=== PATIENT | female | born 1955 | race Caucasian/White ===

== ENCOUNTER 2023-04-07 09:45 | Outpatient (AMB) | payer MEDICARE, MEDICAID, SELFPAY ==
--- NOTE | 2023-04-07 09:45 | MHC.OFFVIS ---
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 Peters with complaints of right knee pain. Hx of right knee on 09/20/2014. Patient reports pain at the medial aspect of knee. Found relief with cortisone injection that was done about a year ago. Denies any recent injury. She has taken Tylenol and medicines which gave her minimal relief. Allergies penicillin V Allergy (Unknown, Verified 04/07/23 09:59) unknown acetaminophen [From Percocet] Allergy (Verified 04/07/23 09:59) itchy oxycodone [From Percocet] Allergy (Verified 04/07/23 09:59) itchy Aspirin Allergy (Unknown, Uncoded 10/01/17 00:00) burning sensation in stomach Latex Gloves Allergy (Unknown, Uncoded 04/07/23 09:59) Unknown Pollen Allergy (Unknown, Uncoded 04/07/23 09:59) unknown Medication List - Last Reconciled 04/07/23 by Silver Peters MD atorvastatin 10 mg PO DAILY celecoxib (Celebrex) 200 mg PO DAILY fluoxetine 20 mg PO DAILY insulin lispro (Admelog SoloStar U-100 Insulin lispro) 1 sliding scale dose subcut USEASDIRECTD lisinopril 2.5 mg PO DAILY loratadine (Allergy Relief (loratadine)) 10 mg PO DAILY naproxen sodium (Aleve) 440 mg PO DAILY omeprazole 40 mg PO DAILY pregabalin (Lyrica) 25 mg PO DAILY semaglutide (Ozempic) 0.25 mg subcut QWEEK topiramate 25 mg PO DAILY PFSH Surgical History (Updated 04/07/23 @ 10:05 by RAYMUNDO Bonilla) Hx of arthroscopy of right knee Social History (Updated 04/07/23 @ 10:04 by RAYMUNDO Bonilla) Patient Tobacco Use Status: Never used Tobacco Current occupational status: unemployed Physical Exam Vital Signs: BMI result Body Mass Index 31.9 Const Other: Well-nourished well-developed very friendly female awake alert and oriented x3 in no acute distress Extrem Other: Bilateral lower extremity examination shows good capillary refill, no skin lesions noted, normal sensation light touch Right knee examination shows a minimal effusion, palpable crepitus with range of motion, pain with range of motion, range of motion from -3 degrees to 115 degrees, no instability Office Procedures Joint Injection/Drain Joint Injection/Drain Primary Site: right knee Prep: site was prepped using aseptic technique Injected: 40 mg of, Kenalog and 1% plain lidocaine Procedure: The patient tolerated the procedure well Coding - Large joint Procedure code (CPT) selection complete Results Reviewed Results Reviewed: 04/07/23 10:12 Lidocaine HCl 2 % MPF [Xylocaine 2 % MPF] 5 ml .ROUTE .STK-MED ONE Triamcinolone Acetonide [Kenalog-40] 40 mg .ROUTE .STK-MED ONE X-rays of the patient's right knee show moderate joint space narrowing, subchondral sclerosis, no acute bony abnormalities Assessment & Plan Assessment & Plan (1) Arthritis of right knee: Code(s): M17.11 - Unilateral primary osteoarthritis, right knee Plan Ms. Cintron presents with right knee pain due to degenerative joint disease. I had a lengthy discussion with the patient regarding the treatment options. She wishes to hold off on surgery for as long as possible. I agree with this plan. The risks and benefits of a cortisone injection were discussed at length with the patient. The patient wished to proceed. She tolerated the injection well. She will continue with her home exercise program. She will follow up with me on an as-needed basis should her symptoms not plateau at an unacceptable level over the next few months. Feel free to call me at any time should questions regarding her orthopedic management arise. I spent 22 minutes in reviewing the patient's records and imaging studies, seeing the patient and documenting in the medical record. Orders: Orders XR knee RT 3V Today M25.561 - Pain in right knee AMB Joint Injection/Aspiration Today M17.11 - Unilateral primary osteoarthritis, right knee Coding Level of Care Code Est Pt Level 2 (15083) Diagnoses Arthritis of right knee M17.11 CPT Codes Coding - Large joint: 65219 - Large joint ([id number])
[2023-04-07 10:05] VITALS: BMI 31.9
== END 2023-04-07 10:28 | disposition home or self-care (01) ==
PROVIDERS: PCP Internal Medicine; Visit Provider Orthopaedic Surgery
DX: M17.11 Unilateral primary osteoarthritis, right knee (principal)
CPT/HCPCS: 20610; 99203; 99213

== ENCOUNTER 2023-04-07 14:19 | Outpatient (REF) | payer MEDICARE, MEDICAID, SELFPAY ==
--- NOTE | ~2023-04-07 | XR_ITS ---
EXAMINATION: XR KNEE, RIGHT CLINICAL INFORMATION: Pain right knee COMPARISON: None available. TECHNIQUE: Four views of the right knee. FINDINGS: There is mild loss of medial and patellofemoral compartment joint space with periarticular spurring. No loose bodies. No bony erosive changes. There is mild anterior superior patellar enthesophyte. No abnormal joint effusion. XR/XR knee RT 3V IMPRESSION: Mild degenerative changes medial and patellofemoral compartment. No visible acute fracture, dislocation or subluxation seen.
== END 2023-04-07 14:20 | disposition home or self-care (01) ==
LOC: HO.HOSX 14:19
PROVIDERS: Visit Provider Orthopaedic Surgery
DX: M17.11 Unilateral primary osteoarthritis, right knee (principal)
CPT/HCPCS: 20610; 73562; J3301

== ENCOUNTER 2023-07-22 11:04 | Outpatient (AMB) | payer MEDICARE, MEDICAID, SELFPAY ==
--- NOTE | 2023-07-22 11:17 | A.OFFVIS_ITS ---
Intake Intake Visit Reasons: OV-Right Knee pain Intake Note: The patient presents with complaints of progressively worsening right knee pain. She describes her pain as sharp in nature. She has done physical therapy exercises which aggravated her pain. Her pain has gotten worse over the last few years in spite of continued non operative treatments. She did have a cortisone injection given into her right knee 3 months ago which gave her minimal relief. The patient will hold off on surgery for as long as possible. She has tried Tylenol and anti-inflammatory medicines which gave her minimal relief. Allergies penicillin V Allergy (Unknown, Verified 07/22/23 11:17) unknown acetaminophen [From Percocet] Allergy (Verified 07/22/23 11:17) itchy oxycodone [From Percocet] Allergy (Verified 07/22/23 11:17) itchy Aspirin Allergy (Unknown, Uncoded 07/22/23 11:17) burning sensation in stomach Latex Gloves Allergy (Unknown, Uncoded 07/22/23 11:17) Unknown Pollen Allergy (Unknown, Uncoded 07/22/23 11:17) unknown Medication List - Last Reconciled 07/22/23 by Silver Peters MD atorvastatin 10 mg PO DAILY fluoxetine 20 mg PO DAILY insulin lispro (Admelog SoloStar U-100 Insulin lispro) 1 sliding scale dose subcut USEASDIRECTD lisinopril 2.5 mg PO DAILY loratadine (Allergy Relief (loratadine)) 10 mg PO DAILY naproxen sodium (Aleve) 440 mg PO DAILY omeprazole 40 mg PO DAILY pregabalin (Lyrica) 25 mg PO DAILY semaglutide (Ozempic) 0.25 mg subcut QWEEK topiramate 25 mg PO DAILY PFS Surgical History Hx of arthroscopy of right knee Social History Alcohol intake: never Patient Tobacco Use Status: Never used Tobacco Current occupational status: unemployed Physical Exam Const Other: Well-nourished well-developed very friendly female awake alert and oriented x3 in no acute distress Extrem Other: Bilateral lower extremity examination shows good capillary refill, no skin l esions noted, normal sensation light touch Right knee examination shows a minimal effusion, palpable crepitus with range of motion, pain with range of motion, no instability Results Reviewed Results Reviewed: X-rays of the patient's right knee show joint space narrowing, subchondral sclerosis, no acute bony abnormalities Assessment & Plan Assessment & Plan (1) Arthritis of right knee: Code(s): M17.11 - Unilateral primary osteoarthritis, right knee Plan Ms. Cintron presents with right knee pain due to degenerative joint disease. I had a lengthy discussion with the patient regarding the treatment options. She wishes to hold off on surgery as long as possible. I agree with this plan. She has not gotten relief from cortisone injections. Thus, I will see whether not her insurance company will cover a viscosupplementation injection. I will see her back once the injection is available. Feel free to call me at any time should questions regarding her orthopedic management arise. I spent 22 minutes in reviewing the patient's records and imaging studies, seeing the patient and documenting in the medical record. Coding Level of Care Code Est Pt Level 2 (73106) Diagnoses Arthritis of right knee M17.11
== END 2023-07-22 11:36 | disposition home or self-care (01) ==
PROVIDERS: PCP Internal Medicine; Visit Provider Orthopaedic Surgery
DX: M17.11 Unilateral primary osteoarthritis, right knee (principal)
CPT/HCPCS: 99213

== ENCOUNTER → 2023-07-22 11:04 | Outpatient (BNVA) | payer MEDICARE, MEDICAID, SELFPAY | PROVIDERS: PCP Internal Medicine; Visit Provider Orthopaedic Surgery | DX: M17.11 Unilateral primary osteoarthritis, right knee (principal) | CPT/HCPCS: 99212 ==

== ENCOUNTER 2023-08-17 10:02 | Outpatient (AMB) | payer MEDICARE, MEDICAID, SELFPAY ==
--- NOTE | 2023-08-17 10:08 | A.OFFVIS_ITS ---
Intake Vital Signs 08/17/23 10:09 Height 5 ft 3 in Weight 180 lb BMI 31.9 Intake Visit Reasons: Inj.- right knee Durolane injection Intake Note: Mary is a 68 year old female who presents with complaints of progressively worsening right knee pain. She describes her pain as sharp in nature. She has had cortisone injections which gave her minimal relief. She has also had viscosupplementation injections which gave her fairly good relief. She has done physical therapy exercises which aggravated her pain. She has also tried Tylenol and anti-inflammatory medicines which gave her minimal relief. She wishes to hold off on surgery for as long as possible. Allergies penicillin V Allergy (Unknown, Verified 08/17/23 10:15) unknown acetaminophen [From Percocet] Allergy (Verified 08/17/23 10:15) itchy oxycodone [From Percocet] Allergy (Verified 08/17/23 10:15) itchy Aspirin Allergy (Unknown, Uncoded 07/22/23 11:17) burning sensation in stomach Latex Gloves Allergy (Unknown, Uncoded 07/22/23 11:17) Unknown Pollen Allergy (Unknown, Uncoded 07/22/23 11:17) unknown Medication List - Last Reconciled 08/17/23 by Silver Peters MD atorvastatin 10 mg PO DAILY fluoxetine 20 mg PO DAILY insulin lispro (Admelog SoloStar U-100 Insulin lispro) 1 sliding scale dose subcut USEASDIRECTD lisinopril 2.5 mg PO DAILY loratadine (Allergy Relief (loratadine)) 10 mg PO DAILY naproxen sodium (Aleve) 440 mg PO DAILY omeprazole 40 mg PO DAILY pregabalin (Lyrica) 25 mg PO DAILY semaglutide (Ozempic) 0.25 mg subcut QWEEK topiramate 25 mg PO DAILY [facility] Surgical History Hx of arthroscopy of right knee Social History Alcohol intake: never Patient Tobacco Use Status: Never used Tobacco Current occupational status: unemployed Physical Exam Vital Signs: BMI result Body Mass Index 31.9 Const Other: Well-nourished well-developed very friendly female awake alert and oriented x3 in no acute distress Extrem Other: Bilateral lower extremity examination shows good capillary refill, no skin lesions noted, normal sensation light touch Right knee examination shows a minimal effusion, palpable crepitus with range of motion, pain with range of motion, no instability Office Procedures Joint Injection/Drain Joint Injection/Drain Primary Site: right knee Prep: site was prepped using aseptic technique Injected: 60 mg of (Durolane) and 1% plain lidocaine Procedure: The patient tolerated the procedure well Coding - Large joint Procedure code (CPT) selection complete Results Reviewed Results Reviewed: X-rays of the patient's right knee show joint space narrowing, subchondral sclerosis, no acute bony abnormalities Assessment & Plan Assessment & Plan (1) Arthritis of right knee: Code(s): M17.11 - Unilateral primary osteoarthritis, right knee Plan Ms. Saida Pratt presents with right knee pain due to degenerative joint disease. I had a lengthy discussion with the patient regarding the treatment options. She wishes to hold off on surgery for as long as possible. I agree with this plan. The risks and benefits of a right knee Durolane viscosupplementation injection were discussed at length with the patient. The patient wished to proceed. She tolerated the injection well. She will continue with her activity modifications. She will follow up with me on an as-needed basis should her symptoms not plateau at an unacceptable level over the next few months. Feel free to call me at any time should questions regarding her orthopedic management arise. I spent 22 minutes in reviewing the patient's records and imaging studies, seeing the patient and documenting in the medical record. Orders: Orders AMB Joint Injection/Aspiration Today M17.11 - Unilateral primary osteoarthritis, right knee Coding Level of Care Code Est Pt Level 2 (20686) Diagnoses Arthritis of right knee M17.11 CPT Codes Coding - Large joint: 54186 - Large joint ([id number])
[2023-08-17 10:09] VITALS: BMI 31.9
== END 2023-08-17 10:38 | disposition home or self-care (01) ==
PROVIDERS: PCP Internal Medicine; Visit Provider Orthopaedic Surgery
DX: M17.11 Unilateral primary osteoarthritis, right knee (principal)
CPT/HCPCS: 20610; 99213

== ENCOUNTER → 2023-08-17 10:02 | Outpatient (BNVA) | payer MEDICARE, MEDICAID, SELFPAY | PROVIDERS: PCP Internal Medicine; Visit Provider Orthopaedic Surgery | DX: M17.11 Unilateral primary osteoarthritis, right knee (principal) | CPT/HCPCS: 20610; 99212; J7318 ==

== ENCOUNTER 2023-11-16 13:28 | Outpatient (AMB) | payer MEDICARE, MEDICAID, SELFPAY ==
[2023-11-16 13:29] VITALS: BMI 31.9
--- NOTE | 2023-11-16 13:29 | MHC.OFFVIS ---
Intake Vital Signs 11/16/23 13:29 Height 5 ft 3 in Weight 180 lb BMI 31.9 Intake Visit Reasons: OV- right knee Durolane injection-Follow up Intake Note: Mary is a 68 year old female who presents for a follow up after her Right knee durolane gel injection on 08/17/2023. Patient reports it has given her a little relief. The patient reports continued right knee pain. She has tried Tylenol and anti-inflammatory medicines which gave her minimal relief. Today the patient is also concerned with progressively worsening left shoulder pain and weakness. The patient states that she injured her left shoulder several years ago while lifting a heavy object. She underwent left shoulder surgery at [facility] several years ago. The patient got minimal relief from that procedure. She has done physical therapy which aggravated her symptoms. She reports weakness when lifting her left hand above shoulder height. She has had cortisone injections given into her left shoulder. Most recent injection gave her minimal relief. Allergies penicillin V Allergy (Unknown, Verified 11/16/23 13:31) unknown acetaminophen [From Percocet] Allergy (Verified 11/16/23 13:31) itchy oxycodone [From Percocet] Allergy (Verified 11/16/23 13:31) itchy Aspirin Allergy (Unknown, Uncoded 07/22/23 11:17) burning sensation in stomach Latex Gloves Allergy (Unknown, Uncoded 07/22/23 11:17) Unknown Pollen Allergy (Unknown, Uncoded 07/22/23 11:17) unknown [facility] Surgical History Hx of arthroscopy of right knee Social History Alcohol intake: never Patient Tobacco Use Status: Never used Tobacco Current occupational status: unemployed Physical Exam Vital Signs: BMI result Body Mass Index 31.9 Const Other: Well-nourished well-developed very friendly female awake alert and oriented x3 in no acute distress Extrem Other: Bilateral upper extremity examination shows good capillary refill, no skin lesions noted, normal sensation light touch Left shoulder examination shows decreased active range of motion but full passive range of motion when compared to her right shoulder, 4/5 strength with supraspinatus testing, positive impingement signs, tenderness over her acromioclavicular joint, no instability Right knee examination shows a minimal effusion, palpable crepitus with range of motion, pain with range of motion, no instability Office Procedures Joint Injection/Drain Joint Injection/Drain Primary Site: left shoulder Prep: site was prepped using aseptic technique Injected: 40 mg of, DepoMedrol and 1% plain lidocaine Procedure: The patient tolerated the procedure well Coding - Large joint Procedure code (CPT) selection complete Assessment & Plan Assessment & Plan (1) Arthritis of right knee: Code(s): M17.11 - Unilateral primary osteoarthritis, right knee (2) Left shoulder pain: Code(s): M25.512 - Pain in left shoulder Plan Ms. Saida Pratt presents with progressively worsening left shoulder pain and weakness possibly due to a full-thickness rotator cuff tear. Thus, I will send the patient for an MRI of her left shoulder for further evaluation. I will see her back once the MRI is completed to discuss the findings and treatment options. The patient also has right knee pain due to degenerative joint disease. She wishes to hold off on total knee replacement surgery for as long as possible. I agree with this plan. The risks and benefits of a right knee cortisone injection were discussed at length with the patient. The patient wished to proceed. She tolerated the injection well. She will follow up for her shoulder MRI as scheduled. Feel free to call me at any time should questions regarding her orthopedic management arise. I spent 22 minutes in reviewing the patient's records and imaging studies, seeing the patient and documenting in the medical record. Orders: Orders MR shoulder LT wo con Today M75.122 - Complete rotator cuff tear or rupture of left shoulder, not specified as traumatic AMB Joint Injection/Aspiration Today M17.11 - Unilateral primary osteoarthritis, right knee Coding Level of Care Code Est Pt Level 2 (77840) Diagnoses Arthritis of right knee M17.11 Left shoulder pain M25.512 CPT Codes Coding - Large joint: 20909 - Large joint ([id number])
== END 2023-11-16 13:58 | disposition home or self-care (01) ==
PROVIDERS: PCP Internal Medicine; Visit Provider Orthopaedic Surgery
DX: M17.11 Unilateral primary osteoarthritis, right knee (principal); M25.512 Pain in left shoulder
CPT/HCPCS: 20610; 99214

== ENCOUNTER → 2023-11-16 13:28 | Outpatient (BNVA) | payer MEDICARE, MEDICAID, SELFPAY | PROVIDERS: PCP Internal Medicine; Visit Provider Orthopaedic Surgery | DX: M25.512 Pain in left shoulder (principal); M17.11 Unilateral primary osteoarthritis, right knee | CPT/HCPCS: 20610; 99212; J1010; J1020 ==

== ENCOUNTER 2024-01-04 18:48 | Outpatient (REF) | payer MEDICARE, MEDICAID, SELFPAY ==
--- NOTE | ~2024-01-04 | MR_ITS ---
EXAMINATION: MR SHOULDER WITHOUT CONTRAST, LEFT CLINICAL INFORMATION: Complete rotator cuff tear or rupture of the left shoulder. Left shoulder pain and swelling. History of surgery. COMPARISON: Radiographs dated 05/01/2015. TECHNIQUE: MRI of the shoulder without contrast was performed on a high-field scanner. FINDINGS: ROTATOR CUFF: 3 soft tissue anchors are present at the greater tuberosity consistent with prior rotator cuff repair. The repaired tendon is attenuated with heterogeneous low signal intensity, most consistent with expected postoperative change. No discrete recurrent tears. Of note, the anterior margin of the acromion produces mild mass effect upon the supraspinatus tendon. Subscapularis and infraspinatus appear intact. No muscle atrophy or fatty infiltration. BICEPS: Biceps tendon is absent at the supraglenoid tubercle, most consistent with prior tenotomy or tenodesis. CORACOACROMIAL ARCH: The undersurface of the acromion is remodeled, consistent with prior acromioplasty. There is a residual or recurrent hooked undersurface morphology with an anterior spur that, as noted above, produces mild mass effect upon the supraspinatus. Mild acromioclavicular osteoarthritis. Trace fluid in the subacromial-subdeltoid bursa. LABRUM/CAPSULE: The labrum is blunted and largely absent superiorly, likely related to prior biceps tendon tear or tenotomy. The inferior labrum is also largely absent, likely due to chronic degeneration or tearing. Joint capsule is unremarkable. GLENOHUMERAL JOINT/MARROW: There is moderate to high-grade cartilage loss at the glenoid inferiorly with focal subchondral edema signal and cortical irregularity. More mild chondral thinning is present in the supraglenoid tubercle. Small to moderate-sized glenoid osteophytes. There is [id number] nonuniform chondral thinning at the humeral head, more pronounced superiorly. No joint effusion. MR/MR shoulder LT wo con IMPRESSION: 1. Status post rotator cuff repair with expected postoperative changes at the supraspinatus tendon. No recurrent tears. 2. Status post acromioplasty with a residual or recurrent hooked undersurface morphology and an anterior spur which produces mild mass effect upon the supraspinatus. 3. [id number] glenohumeral osteoarthritis with focal areas of moderate to high-grade cartilage loss at the inferior glenoid. 4. Mild acromioclavicular osteoarthritis.
== END 2024-01-04 18:49 | disposition home or self-care (01) ==
LOC: HO.MRI 18:48
PROVIDERS: PCP Internal Medicine; Visit Provider Orthopaedic Surgery
DX: M75.122 Complete rotator cuff tear or rupture of left shoulder, not specified as traumatic (principal)
CPT/HCPCS: 73221

== ENCOUNTER 2024-01-25 11:23 | Outpatient (AMB) | payer MEDICARE, MEDICAID, SELFPAY ==
--- NOTE | 2024-01-25 11:23 | A.OFFVIS_ITS ---
Vital Signs 01/25/24 11:29 Height 5 ft 3 in Weight 180 lb BMI 31.9 Intake Visit Reasons: OV - left shoulder MRI review Intake Note: Mary is a 68 year old female who presents with progressively worsening left shoulder pain and weakness. The patient states that she injured her left shoulder several years ago while lifting a heavy object. She underwent left shoulder surgery at [facility] several years ago. The patient got minimal relief from that procedure. She has done physical therapy which aggravated her symptoms. She reports weakness when lifting her left hand above shoulder height. She has had cortisone injections given into her left shoulder. Most recent injection gave her minimal relief. She has tried Tylenol and anti- inflammatory medicines which gave her minimal relief. . Addiction Specialist Required: Yes Addiction Specialist Language: Director Security Management Name: [id number] Allergies penicillin V Allergy (Unknown, Verified 01/25/24 11:30) unknown acetaminophen [From Percocet] Allergy (Verified 01/25/24 11:30) itchy oxycodone [From Percocet] Allergy (Verified 01/25/24 11:30) itchy Aspirin Allergy (Unknown, Uncoded 01/25/24 11:30) burning sensation in stomach Latex Gloves Allergy (Unknown, Uncoded 01/25/24 11:30) Unknown Pollen Allergy (Unknown, Uncoded 01/25/24 11:30) unknown Medication List - Last Reconciled 01/25/24 by Silver Peters MD atorvastatin 10 mg PO DAILY fluoxetine 20 mg PO DAILY insulin lispro (Admelog SoloStar U-100 Insulin lispro) 1 sliding scale dose subcut USEASDIRECTD lisinopril 2.5 mg PO DAILY loratadine (Allergy Relief (loratadine)) 10 mg PO DAILY naproxen sodium (Aleve) 440 mg PO DAILY omeprazole 40 mg PO DAILY pregabalin (Lyrica) 25 mg PO DAILY semaglutide (Ozempic) 0.25 mg subcut QWEEK topiramate XR 25 mg PO DAILY PFSH Surgical History Hx of arthroscopy of right knee Social History Alcohol intake: never Patient Tobacco Use Status: Never used Tobacco Current occupational status: unemployed Physical Exam Vital Signs: BMI result Body Mass Index 31.9 Const Other: Well-nourished well-developed very friendly female awake alert and oriented x3 in no acute distress Extrem Other: Bilateral upper extremity examination shows good capillary refill, no skin lesions noted, normal sensation light touch Left shoulder examination shows decreased active and passive range of motion when compared to her right shoulder, 4+ out of 5 strength with supraspinatus testing, positive impingement signs, tenderness over her acromioclavicular joint, no instability Results Reviewed Results Reviewed: MRI of the patient's left shoulder show severe acromioclavicular joint narrowing, a type 3 acromion, signal change within the supraspinatus tendon due to rotator cuff tendinosis versus a small rotator cuff tear Assessment & Plan Assessment & Plan (1) Impingement syndrome of left shoulder: Code(s): M75.42 - Impingement syndrome of left shoulder Category: Medical Plan Ms. Saida Pratt presents with progressively worsening left shoulder pain due to impingement syndrome, acromioclavicular joint arthritis and rotator cuff tendinosis versus a small rotator cuff tear. I had a lengthy discussion with the patient regarding treatment options. At this point she has failed continued non operative treatments. The risks and benefits of left shoulder surgery were discussed at length with the patient. The patient wishes to proceed with surgery. She will contact my office to pick a surgery date. Surgery will involve left shoulder diagnostic arthroscopy with distal clavicle excision, acromioplasty and rotator cuff repair should a full-thickness tear be found at the time of her surgery. The patient will follow-up as instructed. Feel free to call me at any time should questions regarding her orthopedic management arise. I spent 20 minutes in reviewing the patient's records and imaging studies, see ing the patient and documenting in the medical record. Coding Level of Care Code Est Pt Level 3 (72292) Diagnoses Impingement syndrome of left shoulder M75.42
[2024-01-25 11:29] VITALS: BMI 31.9
== END 2024-01-25 11:38 | disposition home or self-care (01) ==
PROVIDERS: PCP Internal Medicine; Visit Provider Orthopaedic Surgery
DX: M75.42 Impingement syndrome of left shoulder (principal)
CPT/HCPCS: 99214

== ENCOUNTER → 2024-01-25 11:23 | Outpatient (BNVA) | payer MEDICARE, MEDICAID, SELFPAY | PROVIDERS: PCP Internal Medicine; Visit Provider Orthopaedic Surgery | DX: M75.42 Impingement syndrome of left shoulder (principal) | CPT/HCPCS: 99212 ==

== ENCOUNTER 2024-03-14 12:36 | Outpatient (AMB) | payer MEDICARE, MEDICAID, SELFPAY ==
--- NOTE | 2024-03-14 12:38 | MHC.OFFVIS ---
Vital Signs 03/14/24 12:43 Height 5 ft 3 in Weight 180 lb BMI 31.9 Intake Visit Reasons: Preop LT shoulder 03/24/24 Intake Note: Mary is a 68 year old female who presents with progressively worsening left shoulder pain and weakness. The patient states that she injured her left shoulder several years ago while lifting a heavy object. She underwent left shoulder surgery at [facility] several years ago. The patient got minimal relief from that procedure. She has done physical therapy which aggravated her symptoms. She reports weakness when lifting her left hand above shoulder height. She has had cortisone injections given into her left shoulder. Most recent injection gave her minimal relief. She has tried Tylenol and anti-inflammatory medicines which gave her minimal relief. Community Health Navigator Services: Community Health Navigator Offered & Declined Accompanied by: Spouse Allergies oxycodone [From Percocet] Allergy (Intermediate, Verified 03/14/24 12:43) itchy latex Allergy (Unknown, Verified 03/14/24 12:43) Unknown penicillin V Allergy (Unknown, Verified 03/14/24 12:43) unknown pollen extracts Allergy (Unknown, Verified 03/14/24 12:43) Unknown aspirin Adverse Reaction (Intermediate, Verified 03/14/24 12:43) Gastrointestinal Upset Medication List - Last Reconciled 03/14/24 by Silver Peters MD atorvastatin 10 mg PO DAILY fluoxetine 20 mg PO DAILY hydromorphone (Dilaudid) 4 mg (2 x 2 mg) PO Q4H PRN 1 week insulin lispro (Admelog SoloStar U-100 Insulin lispro) 1 sliding scale dose subcut USEASDIRECTD lisinopril 2.5 mg PO DAILY loratadine (Allergy Relief (loratadine)) 10 mg PO DAILY naproxen sodium (Aleve) 440 mg PO DAILY omeprazole 40 mg PO DAILY pregabalin (Lyrica) 25 mg PO DAILY semaglutide (Ozempic) 0.25 mg subcut QWEEK topiramate XR 25 mg PO DAILY PFSH Medical History WILL (obstructive sleep apnea) Osteopenia Osteoarthritis Migraine Cervical spinal stenosis Anxiety and depression Diabetes GERD (gastroesophageal reflux disease) Elevated cholesterol Surgical History Hx of appendectomy Hx of hysterectomy Hx of shoulder surgery Hx of arthroscopy of right knee Social History Alcohol intake: never Patient Tobacco Use Status: Never used Tobacco Current occupational status: unemployed Physical Exam Vital Signs: BMI result Body Mass Index 31.9 Const Other: Well-nourished well-developed very friendly female awake alert and oriented x3 in no acute distress Extrem Other: Bilateral upper extremity examination shows good capillary refill, no skin lesions noted, normal sensation light touch Left shoulder examination shows decreased active and passive range of motion when compared to her right shoulder, 4+ out of 5 strength with supraspinatus testing, positive impingement signs, tenderness over her acromioclavicular joint, no instability Results Reviewed Results Reviewed: MRI of the patient's left shoulder show severe acromioclavicular joint narrowing, a type 3 acromion, signal change within the supraspinatus tendon due to rotator cuff tendinosis versus a small recurrent tear, 3 suture anchors within the proximal humerus with no signs of loosening Assessment & Plan Assessment & Plan (1) Impingement syndrome of left shoulder: Code(s): M75.42 - Impingement syndrome of left shoulder Category: Medical Plan Ms. Saida Pratt presents with recurrent left shoulder pain and weakness due to impingement syndrome, acromioclavicular joint arthritis and rotator cuff tendinosis versus possible recurrent rotator cuff tearing. I had a lengthy discussion with the patient regarding the treatment options. At this point she has failed continued non operative treatments. The risks and benefits of left shoulder surgery were discussed at length with the patient. The patient wishes to proceed with surgery. Surgery will involve left shoulder diagnostic arthroscopy with distal clavicle excision, acromioplasty and rotator cuff repair showed a full-thickness tear be found at the time of her surgery. The patient was given a prescription for Dilaudid at her preoperative appointment. She will follow-up as instructed. Feel free to call me at any time should questions regarding her orthopedic management arise. I spent 22 minutes in reviewing the patient's records and imaging studies, seeing the patient and documenting in the medical record. Medications: New hydromorphone (Dilaudid) Partial Fill upon patient request. 4 mg (2 x 2 mg) PO Q4H PRN 40 tabs 0RF pain 1 week Coding Level of Care Code Est Pt Level 3 (41622) Diagnoses Impingement syndrome of left shoulder M75.42
[2024-03-14 12:43] VITALS: BMI 31.9
== END 2024-03-14 12:55 | disposition home or self-care (01) ==
PROVIDERS: PCP Internal Medicine; Visit Provider Orthopaedic Surgery
DX: M75.42 Impingement syndrome of left shoulder (principal)
CPT/HCPCS: 99024

== ENCOUNTER → 2024-03-14 12:36 | Outpatient (BNVA) | payer MEDICARE, MEDICAID, SELFPAY | PROVIDERS: PCP Internal Medicine; Visit Provider Orthopaedic Surgery | DX: M75.42 Impingement syndrome of left shoulder (principal) | CPT/HCPCS: 99212 ==

== ENCOUNTER 2024-08-22 08:05 | Outpatient (AMB) | payer MEDICARE, MEDICAID, SELFPAY ==
[2024-08-22 08:18] VITALS: BMI 31.9
--- NOTE | 2024-08-22 08:18 | A.OFFVIS_ITS ---
Vital Signs 08/22/24 08:18 Height 5 ft 3 in Weight 180 lb BMI 31.9 Intake Visit Reasons: OV- RT knee pain Intake Note: Mary is a 69 year old female who presents with complaints of progressively worsening right knee pain. She describes her pain as sharp in nature. She did undergo right knee arthroscopic surgery approximately 10 years ago. She got temporary relief from that procedure. She has had multiple cortisone injections given into her right knee. The most recent injection gave her minimal relief. She has also done physical therapy exercises which aggravated her pain. She has had viscosupplementation injections which gave her good relief. She has failed the last 3 months of conservative treatment which has included cortisone injections, Tylenol, anti-inflammatory medicines and physical therapy exercises. At this point her right knee pain is interfering with her activities of daily living and her ability to sleep well through the night. She wishes to hold off on right total knee replacement surgery for as long as possible. Inspector [employer] Required: No Accompanied by: Spouse Allergies oxycodone [From Percocet] Allergy (Intermediate, Verified 08/22/24 08:19) itchy latex Allergy (Unknown, Verified 08/22/24 08:19) Unknown penicillin V Allergy (Unknown, Verified 08/22/24 08:19) unknown pollen extracts Allergy (Unknown, Verified 08/22/24 08:19) Unknown aspirin Adverse Reaction (Intermediate, Verified 08/22/24 08:19) Gastrointestinal Upset Medication List - Last Reconciled 08/22/24 by Silver Peters MD atorvastatin 10 mg PO DAILY dulaglutide (Trulicity) mg subcut fluoxetine 20 mg PO DAILY hydromorphone (Dilaudid) 4 mg (2 x 2 mg) PO Q4H PRN 1 week insulin lispro (Admelog SoloStar U-100 Insulin lispro) 1 sliding scale dose subcut USEASDIRECTD lisinopril 2.5 mg PO DAILY loratadine (Allergy Relief (loratadine)) 10 mg PO DAILY naproxen sodium (Aleve) 440 mg PO DAILY omeprazole 40 mg PO DAILY pregabalin (Lyrica) 25 mg PO DAILY topiramate XR 25 mg PO DAILY venlafaxine ER 75 mg PO DAILY [facility] Medical History WILL (obstructive sleep apnea) Osteopenia Osteoarthritis Migraine Cervical spinal stenosis Anxiety and depression Diabetes GERD (gastroesophageal reflux disease) Elevated cholesterol Surgical History Hx of appendectomy Hx of hysterectomy Hx of shoulder surgery Hx of arthroscopy of right knee Social History Alcohol intake: never Patient Tobacco Use Status: Never used Tobacco Current occupational status: unemployed Physical Exam Vital Signs: BMI result Body Mass Index 31.9 Const Other: Well-nourished well-developed very friendly female awake alert and oriented x3 in no acute distress Extrem Other: Bilateral lower extremity examination shows good capillary refill, no skin lesions noted, normal sensation light touch Right knee examination shows a minimal effusion, palpable crepitus with range of motion, pain with range of motion, range of motion from -3 degrees to 115 degrees, no instability Results Reviewed Results Reviewed: Standing full weight-bearing x-rays of the patient's right knee taken previously show joint space narrowing, subchondral sclerosis, no acute bony abnormalities Assessment & Plan Assessment & Plan (1) Osteoarthritis of right knee: Code(s): M17.11 - Unilateral primary osteoarthritis, right knee Category: Medical Plan Ms. Saida Pratt presents with progressively worsening right knee pain due to osteoarthritis. I had a lengthy discussion with the patient regarding the treatment options. She wishes to hold off on right total knee replacement surgery for as long as possible. I agree with this plan. She has not gotten good relief from cortisone injections in the past. She has gotten good relief from viscosupplementation injections. Thus, I will see whether or not the patient's insurance company will cover a another viscosupplementation injection, such as Durolane. I will see her back once the injection is available. Feel free to call me at any time should questions regarding her orthopedic management arise. I spent 20 minutes in reviewing the patient's records and imaging studies, seeing the patient and documenting in the medical record. Coding Level of Care Code Est Pt Level 3 (14952) Complex EM visit Add On G2211 Diagnoses Osteoarthritis of right knee M17.11
== END 2024-08-22 08:30 | disposition home or self-care (01) ==
PROVIDERS: PCP Internal Medicine; Visit Provider Orthopaedic Surgery
DX: M17.11 Unilateral primary osteoarthritis, right knee (principal)
CPT/HCPCS: 99213; G2211

== ENCOUNTER → 2024-08-22 08:05 | Outpatient (BNVA) | payer MEDICARE, MEDICAID, SELFPAY | PROVIDERS: PCP Internal Medicine; Visit Provider Orthopaedic Surgery | DX: M17.11 Unilateral primary osteoarthritis, right knee (principal) | CPT/HCPCS: 99212 ==

== ENCOUNTER → 2024-09-05 11:37 | Outpatient (BNVA) | payer MEDICARE, MEDICAID, SELFPAY | PROVIDERS: PCP Internal Medicine; Visit Provider Orthopaedic Surgery | DX: M17.11 Unilateral primary osteoarthritis, right knee (principal) | CPT/HCPCS: 20610; 99212; J2003; J7318 ==

== ENCOUNTER 2024-12-12 10:13 | Outpatient (AMB) | payer MEDICARE, MEDICAID, SELFPAY ==
[2024-12-12 10:18] VITALS: BMI 31.9
--- NOTE | 2024-12-12 10:18 | A.OFFVIS_ITS ---
Vital Signs 12/12/24 10:18 Height 5 ft 3 in Weight 180 lb BMI 31.9 Intake Visit Reasons: OV Right knee OA s/p Durolane 09/05/24 Intake Note: Mary is a 69 year old female who presents with progressively worsening left shoulder pain and weakness. The patient states that she injured her left shoulder several years ago while lifting a heavy object. She underwent left s houlder surgery at [facility] several years ago. The patient got temporary relief from that procedure. She has done physical therapy which aggravated her symptoms. She reports weakness when lifting her left hand above shoulder height. She has had cortisone injections given into her left shoulder. Most recent injection gave her minimal relief. She has tried Tylenol and anti-inflammatory medicines which gave her minimal relief. She did have left shoulder surgery scheduled but the procedure was canceled because her blood glucose level was high. The patient also has right knee pain. She has had cortisone injections in the past which gave her minimal relief. She has done physical therapy exercises which aggravated her pain. At this point her right knee pain is interfering with her activities of daily living and her ability to sleep well through the night. She has had a Durolane viscosupplementation injection which gave her fairly good relief. She wishes to hold off on right knee surgery for as long as possible. Commissioner Of Relocation Services Required: No Allergies oxycodone [From Percocet] Allergy (Intermediate, Verified 12/12/24 10:18) itchy latex Allergy (Unknown, Verified 12/12/24 10:18) Unknown penicillin V Allergy (Unknown, Verified 12/12/24 10:18) unknown pollen extracts Allergy (Unknown, Verified 12/12/24 10:18) Unknown aspirin Adverse Reaction (Intermediate, Verified 12/12/24 10:18) Gastrointestinal Upset Medication List - Last Reconciled 12/12/24 by Silver Peters MD atorvastatin 10 mg PO DAILY dulaglutide (Trulicity) mg subcut fluoxetine 20 mg PO DAILY hydromorphone (Dilaudid) 4 mg (2 x 2 mg) PO Q4H PRN 1 week insulin lispro (Admelog SoloStar U-100 Insulin lispro) 1 sliding scale dose subcut USEASDIRECTD lisinopril 2.5 mg PO DAILY loratadine (Allergy Relief (loratadine)) 10 mg PO DAILY naproxen sodium (Aleve) 440 mg PO DAILY omeprazole 40 mg PO DAILY pregabalin (Lyrica) 25 mg PO DAILY topiramate XR 25 mg PO DAILY venlafaxine ER 75 mg PO DAILY PFSH Medical History WILL (obstructive sleep apnea) Osteopenia Osteoarthritis Migraine Cervical spinal stenosis Anxiety and depression Diabetes GERD (gastroesophageal reflux disease) Elevated cholesterol Surgical History Hx of appendectomy Hx of hysterectomy Hx of shoulder surgery Hx of arthroscopy of right knee Social History Alcohol intake: never Patient Tobacco Use Status: Never used Tobacco Current occupational status: unemployed Physical Exam Vital Signs: BMI result Body Mass Index 31.9 Const Other: Well-nourished well-developed very friendly female awake alert and oriented x3 in no acute distress Extrem Other: Left shoulder examination shows decreased range of motion when compared to her right shoulder, 4+ out of 5 strength with supraspinatus testing, positive impingement signs, tenderness over her acromioclavicular joint, no instability Right knee examination shows a minimal effusion, palpable crepitus with range of motion, pain with range of motion, no instability Results Reviewed Results Reviewed: X-rays of the patient's right knee taken previously show joint space narrowing, subchondral sclerosis, no acute bony abnormalities MRI of the patient's left shoulder shows severe acromioclavicular joint narrowing, a type 2 acromion, 3 suture anchors within the proximal humerus with no signs of loosening, signal change within the supraspinatus tendon due to rotator cuff tendinosis versus a small recurrent tear Assessment & Plan Assessment & Plan (1) Osteoarthritis of right knee: Code(s): M17.11 - Unilateral primary osteoarthritis, right knee Category: Medical (2) Impingement syndrome of left shoulder: Code(s): M75.42 - Impingement syndrome of left shoulder Category: Medical Plan Ms. Saida Pratt presents with right knee pain due to osteoarthritis. The patient has not gotten good relief from cortisone injections in the past. Thus, I will see whether or not the patient's insurance company will cover a another Durolane viscosupplementation injection. I will see her back once the injection is available. The patient also has left shoulder pain and weakness due to impingement syndrome, acromioclavicular joint arthritis and possible recurrent rotator cuff tearing. I had a lengthy discussion with the patient regarding the treatment options. At this point the patient has failed continued non operative treatments. The risks and benefits of left shoulder surgery were discussed at length with the patient. The patient wishes to proceed with surgery. Surgery will most likely involve left shoulder diagnostic arthroscopy with distal clavicle excision, acromioplasty and rotator cuff repair should a full-thickness tear be found at the time of her surgery. The patient will follow-up as instructed. Feel free to call me at any time should questions regarding her orthopedic management arise. I spent 20 minutes in reviewing the patient's records and imaging studies, seeing the patient and documenting in the medical record. Coding Level of Care Code Est Pt Level 3 (40831) Complex EM visit Add On G2211 Diagnoses Osteoarthritis of right knee M17.11 Impingement syndrome of left shoulder M75.42
--- OUTSIDE RECORDS SUMMARY | 2024-12-12 11:17 | XMS_ITS | Encounter Summary ---
Author Organization [facility] Address [address] [place] [address] Care Team Providers Care Boat Dock Operator Name Role Phone Julissa Junior MD Primary Care Provider Unavail able Flor Painter MD Primary Care Provider [phone] Amanda Lemon MD Primary Care Prov ider [facility], Pcp Primary Care Provider Unavailabl e Julissa Junior MD Primary Care Provider Unavail able Reason for Visit * Reason Comments E-prescribe Rx Request Encounter Details Date Type Department Care Team Description 10/28/2019 Refill Adult Medicine [address] [address] Julissa Junior MD E-prescribe Rx Request Social History Tobacco Use Types Packs/Day Years Used Date Smoking Tobacco: Former Cigarettes 0 1971 - 08/02/2001 Smokeless Tobacco: Never Comments:quit 2002 Alcohol Use Standard Drinks/Week Comments No 0 (1 standard drink = 0.6 oz pur e alcohol) Sex Assigned at Date Recorded Not on file Job Start Date Occupation Industry Not on file Not on file Not on file documented as of this encounter Miscellaneous Notes * Telephone Encounter - Feli Cristina - 10/30/2019 11:01 AM EDT Patient would like script to be: E-PRESCRIBED/FAXED TO PHARMACY WHEN WAS THE PATIENT'S LAST APPOINTMENT IN ADULT MEDICINE? 08/31/19 WHEN WAS THE LAST TIME THE PATIENT SAW THEIR PCP? Same as above Does patient have an upcoming appointment? Yes 11/30/19 (THE MEDICATION REQUESTED IS ON THE MED LIST ABOVE) All of the medications requested were on the CURRENT MEDS list Did you check the Pharmacy information above?: YES Patient wants: 30 -day supply Is this a mail order prescription request ? NO If the refill is from a FAXED refill request what is the RX # listed on the fax? N/A Patients current insurance carrier is: Payor: MEDICARE-[place] / [place] / Product Type: MEDICARE [id number] documented in this encounter Plan of Treatment Not on file documented as of this encounter Visit Diagnoses Not on filedocumented in this encounter Care Teams Boat Dock Operator Relationship Specialty Start Date End Date Julissa Junior MD PCP - General Internal Medicine 09/15/16 09/08/21 Flor Painter MD [address] [place] [address] PCP - General Internal Medicine 09/09/21 05/26/22 Amanda Lemon MD [address] [place] [address] PCP - General Internal Medicine 05/27/22 05/24/23 Rosita Baxter [address] [place] [address] PCP - General Internal Medicine 05/25/23 06/28/23 Julissa Junior MD [address] [place] [address] PCP - General Internal Medicine 06/29/23 documented as of this encounter
--- OUTSIDE RECORDS SUMMARY | 2024-12-12 11:17 | XMS_ITS | Encounter Summary ---
Author Organization [facility] Address [address] [place] [address] Care Team Providers Care Stem Setter Name Role Phone Julissa Junior MD Primary Care Provider Unavail able Flor Painter MD Primary Care Provider [phone] Amanda Lemon MD Primary Care Prov ider [facility], Pcp Primary Care Provider Unavailabl Julissa Junior MD Primary Care Provider Unavail able Encounter Details Date Type Department Care Team Description 11/02/2019 Sample Maker Original Report Medical Records [address] [place] [id number] Clif Cedeno MD Social History Tobacco Use Types Packs/Day Years [...] on file documented as of this encounter Plan of Treatment Not on file documented as of this encounter Visit Diagnoses Not on filedocumented in this encounter Care Teams Stem Setter Relationship Specialty Start Date End Date Julissa Junior MD PCP - General Internal Medicine 09/15/16 09/08/21 Flor Painter MD [address] [place] [address] PCP - General Internal Medicine 09/09/21 05/26/22 Amanda Lemon MD [address] [place] [address] PCP - General Internal Medicine 05/27/22 05/24/23 [facility], [place] [address] PCP - General Internal Medicine 05/25/23 06/28/23 Julissa Junior MD [address] [place] [address] PCP - General Internal Medicine 06/29/23 documented as of this encounter
--- OUTSIDE RECORDS SUMMARY | 2024-12-12 11:17 | XMS_ITS | Encounter Summary ---
Author Organization [facility] Address [address] [place] [address] Care Team Providers Care E Tailer Name Role Phone Julissa Junior MD Primary Care Provider Unavail able Flor Painter MD Primary Care Provider Amanda Lemon MD Primary Care Prov ider [facility], Pcp Primary Care Provider Unavailabl Julissa Junior MD Primary Care Provider Unavail able Encounter Details Date Type Department Care Team Description 07/02/2020 Damper Maker Report Medical Records [address] [place] [id number] Silver Peters MD Social History Tobacco Use Types Packs/Day [...] on filedocumented in this encounter Care Teams E Tailer Relationship Specialty Start Date End Date Julissa Junior MD PCP - General Internal Medicine 09/15/16 09/08/21 Flor Painter MD [address] [place] [id number] PCP - General Internal Medicine 09/09/21 05/26/22 Amanda Lemon MD [address] [place] [address] PCP - General Internal Medicine 05/27/22 05/24/23 [facility], [place] [address] PCP - General Internal Medicine 05/25/23 06/28/23 Julissa Junior MD [address] [place] [address] PCP - General Internal Medicine 06/29/23 documented as of this encounter
--- OUTSIDE RECORDS SUMMARY | 2024-12-12 11:17 | XMS_ITS | Encounter Summary ---
Author Organization [facility] Address [address] [place] [address] Care Team Providers Care E Business Consultant Name Role Phone Amanda Lemon MD Primary Care Prov ider [facility], Pcp Primary Care Provider Julissa Gale MD Primary Care Provider Unavail able Encounter Details Date Type Department Care Team Description 05/06/2023 Executive Coach Report Medical Records [address] [place] [id number] Abstract, Provider Social History Tobacco Use Types Packs/Day Years Used Date Smoking Tobacco: Former Cigarettes 0.5 31 0 1971 - 08/02/2001 Passive Smoke Exposure: Never Smokeless Tobacco: Never Comments:quit 2002 Alcohol Use [...] filedocumented in this encounter Care Teams E Business Consultant Relationship Specialty Start Date End Date Amanda Lemon MD [address] [place] [address] PCP - General Internal Medicine 05/27/22 05/24/23 [facility], Pcp [address] [place] [address] PCP - General Internal Medicine 05/25/23 06/28/23 Julissa Junior MD [address] [place] [address] PCP - General Internal Medicine 06/29/23 documented as of this encounter
--- OUTSIDE RECORDS SUMMARY | 2024-12-12 11:17 | XMS_ITS | Encounter Summary ---
Author Organization [facility] Address [address] [place] [address] Care Team Providers Care Flask Carrier Name Role Phone Amanda Lemon MD Primary Care Prov ider [facility], Pcp Primary Care Provider Julissa Gale MD Primary Care Provider Unavail able Encounter Details Date Type Department Care Team Description 09/15/2022 Credit Counselor Report Medical Records [address] [place] [address] Silver Peters MD Social History Tobacco Use Types Packs/Day Years Used Date Smoking Tobacco: Former Cigarettes 0.5 31 0 1971 - 08/02/2001 Smokeless Tobacco: Never [...] on filedocumented in this encounter Care Teams Flask Carrier Relationship Specialty Start Date End Date Amanda Lemon MD [address] [place] [address] PCP - General Internal Medicine 05/27/22 05/24/23 [facility], Pcp [address] [place] [id number] PCP - General Internal Medicine 05/25/23 06/28/23 Julissa Junior MD [address] [place] [address] PCP - General Internal Medicine 06/29/23 documented as of this encounter
--- OUTSIDE RECORDS SUMMARY | 2024-12-12 11:17 | XMS_ITS | Encounter Summary ---
Author Organization [facility] Address [address] [place] [address] Care Team Providers Care Cash On Delivery Clerk Name Role Phone Julissa Junior MD Primary Care Provider Unavail able Flor Painter MD Primary Care Provider Amanda Lemon MD Primary Care Prov ider [facility], Pcp Primary Care Provider Unavailabl e Julissa Junior MD Primary Care Provider Unavail able Encounter Details Date Type Department Care Team Description 05/08/2020 Refill Gastroenterology - [address] [place] [address] Noris Mcdonough MD Social History Tobacco Use Types Packs/Day [...] on filedocumented in this encounter Care Teams Cash On Delivery Clerk Relationship Specialty Start Date End Date Julissa Junior MD PCP - General Internal Medicine 09/15/16 09/08/21 Flor Painter MD [address] [place] [address] PCP - General Internal Medicine 09/09/21 05/26/22 Amanda Leomn MD [address] [place] [address] PCP - General Internal Medicine 05/27/22 05/24/23 [facility], [place] [address] PCP - General Internal Medicine 05/25/23 06/28/23 Julissa Junior MD [address] [place] [address] PCP - General Internal Medicine 06/29/23 documented as of this encounter
--- OUTSIDE RECORDS SUMMARY | 2024-12-12 11:18 | XMS_ITS | Encounter Summary ---
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 Report Medical Records [address] [place] [id number] Clif Cedeno MD Social History Tobacco Use [...] on filedocumented in this encounter Care Teams Vacuum Cooker Operator Relationship Specialty Start Date End Date Julissa Junior MD PCP - General Internal Medicine 09/15/16 09/08/21 lFor Painter MD [address] [place] [address] PCP - General Internal Medicine 09/09/21 05/26/22 Amanda Lemon MD [address] [place] [address] PCP - General Internal Medicine 05/27/22 05/24/23 [facility], [place] [address] PCP - General Internal Medicine 05/25/23 06/28/23 Julissa Junior MD [address] [place] [address] PCP - General Internal Medicine 06/29/23 documented as of this encounter
--- OUTSIDE RECORDS SUMMARY | 2024-12-12 11:18 | XMS_ITS | Encounter Summary ---
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 [address] [place] [address] Abstract, Provider Social History Tobacco Use Types Packs/Day Years Used Date Smoking Tobacco: Former Comments:quit 2002 Alcohol Use Standard Drinks/Week Comments Not Asked 0 (1 standard drink = 0.6 oz pur e alcohol) Sex Assigned at Date Recorded Not on file Job Start Date Occupation Industry Not on file Not on file Not on file documented as of this encounter Plan of Treatment Not on file documented as of this encounter Visit Diagnoses Not on filedocumented in this encounter Care Teams Rn Clinical Appeals Relationship Specialty Start Date End Date Minerva Barraagn DO PCP - General Internal Medicine 06/13/14 01/31/15 Zabrina Tavarez PCP - General Internal Medicine 02/01/15 09/14/16 Julissa Junior MD PCP - General Internal Medicine 09/15/16 09/08/21 Flor Painter MD [address] [place] [address] PCP - General Internal Medicine 09/09/21 05/26/22 Amanda Lemon MD [address] [place] [address] PCP - General Internal Medicine 05/27/22 05/24/23 [facility], [address] [address] PCP - General Internal Medicine 05/25/23 06/28/23 Julissa Junior MD [address] [place], [place] [phone] PCP - General Internal Medicine 06/29/23 documented as of this encounter
--- OUTSIDE RECORDS SUMMARY | 2024-12-12 11:18 | XMS_ITS | Encounter Summary ---
Author Organization [facility] Address [address] [place] [address] Care Team Providers Care Recruiter Account Manager Name Role Phone Julissa Junior MD Primary Care Provider Unavail able Flor Painter MD Primary Care Provider Amanda Lemon MD Primary Care Prov ider [facility], Pcp Primary Care Provider Unavailabl Julissa Junior MD Primary Care Provider Unavail able Encounter Details Date Type Department Care Team Description 02/23/2018 Orders Only Adult Medicine [address] [id number] Julissa Junior MD Social History Tobacco Use Types Packs/Day [...] on filedocumented in this encounter Care Teams Recruiter Account Manager Relationship Specialty Start Date End Date Julissa Junior MD PCP - General Internal Medicine 09/15/16 09/08/21 Flor Painter MD [address] [place] [address] PCP - General Internal Medicine 09/09/21 05/26/22 Amanda Lemon MD [address] [place] [address] PCP - General Internal Medicine 05/27/22 05/24/23 [facility], [place] [address] PCP - General Internal Medicine 05/25/23 06/28/23 Julissa Junior MD [address] [place] [address] PCP - General Internal Medicine 06/29/23 documented as of this encounter
--- OUTSIDE RECORDS SUMMARY | 2024-12-12 11:18 | XMS_ITS | Encounter Summary ---
Author Organization [facility] Address [address] [place] [address] Care Team Providers Care Strategy Execution Consultant Name Role Phone Julissa Junior MD Primary Care Provider Unavail able Flor Painter MD Primary Care Provider Amanda Lemon MD Primary Care Prov ider [facility], Pcp Primary Care Provider Unavailabl Julissa Junior MD Primary Care Provider Unavail able Encounter Details Date Type Department Care Team Description 09/23/2018 [place] Laborer Report Medical Records [address] [place] [address] [facility]., [place] Social History Tobacco Use Types Packs/Day Years [...] on filedocumented in this encounter Care Teams Strategy Execution Consultant Relationship Specialty Start Date End Date Julissa Junior MD PCP - General Internal Medicine 09/15/16 09/08/21 Flor Painter MD [address] [place] [address] PCP - General Internal Medicine 09/09/21 05/26/22 Amanda Lemon MD [address] [place] [address] PCP - General Internal Medicine 05/27/22 05/24/23 [facility], [place] [address] PCP - General Internal Medicine 05/25/23 06/28/23 Julissa Junior MD [address] [place] [address] PCP - General Internal Medicine 06/29/23 documented as of this encounter
--- OUTSIDE RECORDS SUMMARY | 2024-12-12 11:18 | XMS_ITS | Encounter Summary ---
Author Organization [facility] Address [address] [place] [address] Care Team Providers Care Director Digital Catalogue Name Role Phone Julissa Junior MD Primary Care Provider Unavail able Flor Painter MD Primary Care Provider Amanda Lemon MD Primary Care Prov ider [facility], Pcp Primary Care Provider Unavailabl e Julissa Junior MD Primary Care Provider Unavail able Reason for Visit * Reason Onset Date Comments medication problems 02/01/2019 Encounter Details Date Type Department Care Team Description 02/01/2019 Telephone Adult [address] [phone] Julissa Junior MD medication problems Social History Tobacco Use Types Packs/Day Years [...] encounter Miscellaneous Notes * Telephone Encounter - Génesis Beth M.A. - 02/01/2019 3:24 PM EDT Please sign, Humalog is not covered and Novolog is the replacement. * Telephone Encounter - Sara Fabian - 02/01/2019 3:20 PM EDT Please see previous encounter. Advised novolog documented in this encounter Plan of Treatment Not on file documented as of this encounter Visit Diagnoses Not on filedocumented in this encounter Care Teams Director Digital Catalogue Relationship Specialty Start Date End Date Julissa Junior MD PCP - General Internal Medicine 09/15/16 09/08/21 Flor Painter MD [address] [place] [address] PCP - General Internal Medicine 09/09/21 05/26/22 Amanda Lemon MD [address] [place] [address] PCP - General Internal Medicine 05/27/22 05/24/23 [facility], [address] [address] PCP - General Internal Medicine 05/25/23 06/28/23 Julissa Junior MD [address] [place] [address] PCP - General Internal Medicine 06/29/23 documented as of this encounter
--- OUTSIDE RECORDS SUMMARY | 2024-12-12 11:18 | XMS_ITS | Encounter Summary ---
Author Organization [facility] Address [address] [place] [address] Care Team Providers Care Felt Washing Machine Tender Name Role Phone Minerva Barragan DO Primary Care Pro vider Unavailable Zabrina Tavarez Primary Care Provider UnavailJulissa Rojas MD Primary Care Provider Unavail able Flor Painter MD Primary Care Provider [phone] Amanda Lemon MD Primary Care Prov ider [facility], Pcp Primary Care Provider Julissa Gale MD Primary Care Provider Unavail able Encounter Details Date Type Department Care Team Description 01/14/2015 Orders Only Adult Medicine [address] [address] Minerva Barragan DO Social History Tobacco Use Types Packs/Day Years [...] on filedocumented in this encounter Care Teams Felt Washing Machine Tender Relationship Specialty Start Date End Date Minerva Barragan DO PCP - General Internal Medicine 06/13/14 01/31/15 Zabrina Tavarez PCP - General Internal Medicine 02/01/15 09/14/16 Julissa Junior MD PCP - General Internal Medicine 09/15/16 09/08/21 Flor Painter MD [address] [place] [address] PCP - General Internal Medicine 09/09/21 05/26/22 Amanda Lemon MD [address] [place] [address] PCP - General Internal Medicine 05/27/22 05/24/23 Sahil, Rosita [address] [place], [place] [phone] PCP - General Internal Medicine 05/25/23 06/28/23 Julissa Junior MD [address] [place] [address] PCP - General Internal Medicine 06/29/23 documented as of this encounter
--- OUTSIDE RECORDS SUMMARY | 2024-12-12 11:18 | XMS_ITS | Encounter Summary ---
Author Organization [facility] Address [address] [place] [address] Care Team Providers Care Molded Goods Embossing Press Operator Name Role Phone Flor Painter MD Primary Care Provider [phone] Amanda Lemon MD Primary Care Prov ider [facility], Pcp Primary Care Provider Julissa Gale MD Primary Care Provider Unavail able Encounter Details Date Type Department Care Team Description 05/20/2022 Debubblizer Report Medical Records [address] [place] [address] Clif Cedeno MD Social History Tobacco Use [...] file Not on file Not on file COVID-19 Exposure Response Date Recorded In the last 10 days, have yo u been in contact with someone who was confirmed or suspected to have Coronavirus/COVID-19? No / Unsure 05/14/2022 2:34 PM EDT documented as of this encounter Plan of Treatment Not on file documented as of this encounter Visit Diagnoses Not on filedocumented in this encounter Care Teams Molded Goods Embossing Press Operator Relationship Specialty Start Date End Date Flor Painter MD [address] [place] [address] PCP - General Internal Medicine 09/09/21 05/26/22 Amanda Lemon MD [address] [place] [address] PCP - General Internal Medicine 05/27/22 05/24/23 [facility] Pcp [address] [place] [address] PCP - General Internal Medicine 05/25/23 06/28/23 Julissa Junior MD [address] [place] [address] PCP - General Internal Medicine 06/29/23 documented as of this encounter
--- OUTSIDE RECORDS SUMMARY | 2024-12-12 11:18 | XMS_ITS | Encounter Summary ---
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 [address] [place] [address] Instrum, Marci Villegas Social History Tobacco Use Types Packs/Day Years [...] on filedocumented in this encounter Care Teams Residential Builder Relationship Specialty Start Date End Date Julissa Junior MD PCP - General Internal Medicine 09/15/16 09/08/21 Flor Painter MD [address] [place] [id number] PCP - General Internal Medicine 09/09/21 05/26/22 Amanda Lemon MD [address] [place] [address] PCP - General Internal Medicine 05/27/22 05/24/23 [facility] [place] [address] PCP - General Internal Medicine 05/25/23 06/28/23 Julissa Junior MD [address] [place] [address] PCP - General Internal Medicine 06/29/23 documented as of this encounter
--- OUTSIDE RECORDS SUMMARY | 2024-12-12 11:18 | XMS_ITS | Encounter Summary ---
Author Organization [facility] Address [address] [place] [address] Care Team Providers Care Cement Breaker Name Role Phone Julissa Junior MD Primary Care Provider Unavail able Encounter Details Date Type Department Care Team Description 07/07/2023 [facility] Medical Records [address] [place] [address] Gail Gaffney MD [address] [place] [address] [address] [place] [address] Social History Tobacco Use Types Packs/Day Years [...] on filedocumented in this encounter Care Teams Cement Breaker Relationship Specialty Start Date End Date Julissa Junior MD PCP - General Internal Medicine 06/29/23 documented as of this encounter
--- OUTSIDE RECORDS SUMMARY | 2024-12-12 11:18 | XMS_ITS | Encounter Summary ---
Author Organization [facility] Address [address] [place] [address] Care Team Providers Care Webmethods Architect Name Role Phone Julissa Junior MD Primary Care Provider Unavail able Flor Painter MD Primary Care Provider Amanda Lemon MD Primary Care Prov ider [facility], Pcp Primary Care Provider Unavailabl Julissa Junior MD Primary Care Provider Unavail able Encounter Details Date Type Department Care Team Description 12/11/2020 Cephalometric Analyst Report Medical Records [address] [place] [address] Clif Cedeno MD Social History Tobacco Use [...] on filedocumented in this encounter Care Teams Webmethods Architect Relationship Specialty Start Date End Date Julissa Junior MD PCP - General Internal Medicine 09/15/16 09/08/21 Flor Painter MD [address] [place] [address] PCP - General Internal Medicine 09/09/21 05/26/22 Amanda Lemon MD [address] [place] [address] PCP - General Internal Medicine 05/27/22 05/24/23 [facility], [place] [address] PCP - General Internal Medicine 05/25/23 06/28/23 Julissa Junior MD [address] [place] [address] PCP - General Internal Medicine 06/29/23 documented as of this encounter
--- OUTSIDE RECORDS SUMMARY | 2024-12-12 11:18 | XMS_ITS | Encounter Summary ---
Author Organization [facility] Address [address] [place] [address] Care Team Providers Care Registered Safety Engineer Name Role Phone Minerva Barragan DO Primary Care Pro vider Unavailable Zabrina Tavarez Primary Care Provider UnavailJulissa Rojas MD Primary Care Provider Unavail able Flor Painter MD Primary Care Provider Amanda Lemon MD Primary Care Prov ider [facility], Pcp Primary Care Provider Julissa Gale MD Primary Care Provider Unavail able Encounter Details Date Type Department Care Team Description 10/09/2014 Orders Only Adult Medicine [address] [address] Minerva Barragan DO Social History Tobacco Use [...] on filedocumented in this encounter Care Teams Registered Safety Engineer Relationship Specialty Start Date End Date Minerva Barragan DO PCP - General Internal Medicine 06/13/14 01/31/15 Zabrina Tavarez PCP - General Internal Medicine 02/01/15 09/14/16 Julissa Junior MD PCP - General Internal Medicine 09/15/16 09/08/21 Flor Painter MD [address] [place] [address] PCP - General Internal Medicine 09/09/21 05/26/22 Amanda Lemon MD [address] [place] [address] PCP - General Internal Medicine 05/27/22 05/24/23 Sahil, Rosita [address] [place], [place] [phone] PCP - General Internal Medicine 05/25/23 06/28/23 Julissa Junior MD [address] [place] [address] PCP - General Internal Medicine 06/29/23 documented as of this encounter
--- OUTSIDE RECORDS SUMMARY | 2024-12-12 11:18 | XMS_ITS | Clinical Summary ---
Author Organization [facility] Address [address] [place] [address] Care Team Providers Care Data Analyst Name Role Phone Julissa Junior MD Primary Care Provider Unavail able Allergies Active Allergy Reactions Severity Noted Date Comments Acetaminophen 09/15/2016 GI problems Aspirin 09/07/2014 Latex 09/07/2014 Penicillins 09/07/2014 Oxycodone-Aspirin Itching/Pruritus 08/02/2020 Pollen 09/15/2016 Medications Medication Sig Dispensed Refills Start Date End Date Status Glucose Blood (FREESTYLE LITE) Strip Use to test blood sugar 3 times daily 300 Strip 2 09/15/2021 Active pregabalin (LYRICA) 25 MG capsule Take 1 Capsule by mouth daily. 30 Capsule 4 07/02/2022 Active Insulin Pen Needle (BD Pen Needle Helene U/F) 32G X 4 MM Misc Use to inject insulin four times daily 400 Each 1 07/07/2022 Active Cholecalciferol 25 MCG (1000 UT) Tab Take 1 Tablet by mouth daily. 90 Tablet 1 09/25/2022 Active Oyster Shell Calcium 500 MG Tab Take 1 Tablet by mouth daily. 90 Tablet 1 09/25/2022 Active calcium carbonate (OS-VERONICA) 1250 (500 Ca) MG tablet Take 1 Tablet by mouth daily. Take 1 tablet by mouth daily. 90 Tablet 1 09/25/2022 Active glucose monitoring kit (FREESTYLE) monitoring kit Used to check blood glucose 3 times daily. 1 Kit 0 09/25/2022 Active Blood Glucose Calibration (FreeStyle Control Solution) Liquid Use to calibrate each new bottle of test strips 1 Each 0 09/25/2022 Active FreeStyle Lancets Misc USE TO TEST BLOOD GLUCOSE 3 TIMES DAILY 300 Each 0 09/25/2022 Active venlafaxine (EFFEXOR) 50 MG tablet Take 1 Tablet by mouth 3 times daily. 0 Active Insulin Glargine-yfgn 100 UNIT/ML Solution Pen-injector INJECT 22 UNITS INTO THE SKIN AT BEDTIME. 0 10/12/2022 Active omeprazole (PRILOSEC) 40 MG capsule Take 1 Capsule by mouth daily. 90 Capsule 1 01/14/2023 Active loratadine (CLARITIN) 10 MG tablet Take 1 Tablet by mouth daily. 90 Tablet 1 01/14/2023 Active topiramate (TOPAMAX) 25 MG tablet Take 1 Tablet by mouth daily. 90 Tablet 1 01/14/2023 Active celecoxib (CELEBREX) 200 MG capsule Take 1 Capsule by mouth 2 times daily as needed for Pain. 30 Capsule 0 01/14/2023 Active Semaglutide, 1 MG/DOSE, 2 MG/1.5ML Solution Pen-injector Inject 1 mg into the skin once a week. 6 mL 1 01/14/2023 Active lisinopril (PRINIVIL,ZESTRIL) 2.5 MG tablet TAKE 1 TABLET BY MOUTH EVERY DAY 90 Tablet 0 05/17/2023 Active Active Problems Patient Care Coordination No te Formatting of this note is d ifferent from the original. Checking Your Blood Sugars Please check your blood sugars every day. Please check your sugars at the following times of day: before breakfast Your Blood Sugar Goals Pre Meal: 90-130 2 hours after meals: 110-160 Bedtime: 110-150 Use the Results ?? Bring your glucometer to every appointment ?? Write your fingerstick blood sugars down on a log sheet or record book. Bring them to your appointment ?? Look for patterns in the numbers. The results help you and your provider make decisions about your diabetes treatment plan. Your Results and your Goals Your Result / Date of Completion Your Goal / How Often to Assess Component Value Date HGBA1C 6.2 09/07/2014 Less than 7% --- 2-4 times per year BP Readings from Last 1 Encounters: 10/09/14 120/78 Less than 140/90 --- once per year Component Value Date MALBCR 6.8 09/07/2014 Less than 30 --- once per year Component Value Date LDL 79 09/07/2014 Less than 100 --- once per year Wt Readings from Last 1 Encounters: 10/09/14 231 lb (104.781 kg) Your goal weight by next visit: 225 --- reassess 2-4 times a year Health Maintenance Due Topic Date Due ? ? Dtap/tdap/td (##1 - Tdap) 1964 ? ? Diabetes: Annual Eye Exam 1971 ? ? Diabetes: Annual Care Plan 1971 ? ? Hepatitis C Screening 1971 ? ? Baseline Health Exam 40-64 1993 ? ? Colon Cancer Screening 2003 ? ? Adult Immunization: Zostavax For Patients Over 60 2013 ? ? Influenza (##1 of 1) 04/02/2014 Your Action Plan Check blood glucose as directed and write down all results. Contact me if you experience any barriers to care such as inability to purchase your medication, difficulty getting to your appointments or difficulty understanding your care plan When to Call your Healthcare Provider If your blood sugar falls below 70 and you do not know why or you become unconscious If you are sick and unable to take liquids because or nausea or vomiting If you have a fever over 101 If your blood sugar is 300 or higher on greater than 3 separate occasions during the same week If you are just unsure what to do Educational Resources [place] [employer] (www.diabetes.org) Centers for Disease Control and Prevention (www.cdc.gov/diabetes) This care plan was created in collaboration with Mary Cnitron on 10/09/2014 Problem Noted Date Trigger finger, left middle finger 03/19 Ureteral stone 10/02/2021 Overview: 09/23 left proximal ureteral stone Osteoporosis 05/28/2021 Overview: S/p DEXA 05/2021 Mixed hyperlipidemia 05/22/2021 Microalbuminuria 10/03/2019 Type 2 diabetes mellitus wit h microalbuminuria, with long-term current use of insulin 10/03/2019 Primary hypertension 08/31/2019 Peripheral neuropathy 01/30/2019 Overview: Decreased sensation on monofilament testing Obesity (BMI 30-39.9) 05/31/2018 Cervical stenosis of spinal canal 2017 Overview: S/p MRI 09/2017 Calcific tendinitis of left shoulder 05/2018 Overview: Follows with physiatry Cervical radicular pain 08/09/2017 Overview: CS injections with [facility] GERD (gastroesophageal reflux disease) 0 09/15/2016 Vitamin D deficiency 09/15/2016 Osteoarthritis of right knee 11/19/2014 Overview: arthroscopy 09/16, CS injections with Dr. Covarrubias S/p PT does not want surgery at this time Osteoarthritis of lumbar spine 5 Overview: Occasional CS shots at [facility] with Dr. Covarrubias WILL (obstructive sleep apnea) 10/02/2014 Overview: Not using CPAP machine Migraine 10/02/2014 Controlled type 2 diabetes mellitus with neurological manifestations Overview: Paresthesias of hands and feet Anxiety and depression Resolved Problems Problem Noted Date Resolved Date Uncontrolled type 2 diabetes mellitus with diabetic polyneuropathy, with long-term current use of insulin 09/16/2016 09/05/2020 Diabetic neuropathy 09/15/2016 05/07/2017 Osteopenia 09/15/2016 05/28/2021 Overview: Bone Density 06/2018 Morbid obesity 10/02/2014 05/31/2018 Overview: BMI 41.82 on 09/07/14 Depression 10/02/2014 05/07/2017 Chronic neck pain 10/02/2014 05/07/2017 Immunizations Name Administration Dates Next Due COVID-19 (Moderna) 05/28/2021,11/21/2020, 021 COVID-19 (Moderna) PT Reported 05/28/2021,2020,10/24/2020 Covid-19 Bivalent (Moderna) 02/01/2023 Flu (Generic) 06/04/2021, 3,06/28/2012,07/09,2010 Influenza (> 6 Months) 04/15/2017 Influenza Flu (PT Reported) 05/13/2023,1 ,05/25/2019,06/02 Influenza Vaccine-quadrivale nt 4 Years Plus 05/13/2023,04/30/2021,05/31/2018,04/15,05/18/2016 Influenza vaccine high dose age 65 and over 05/04/2022,06/04/2021,05/25/2019 Pneumoccoccal(Adult) Polysac charide PPSV23 08/16/2013 Pneumococcal Conjugate PCV-13 05/31/2018 Pneumococcal Conjugate PCV-20 02/01/2023 Shingrix (Recombinant zoster vaccine) 07/09/2014 Tdap 11/03/2016,09/18/2011 Varicella 09/18/2011 Zostavax 07/09/2014 Family History Medical History Relation Name Comments CA of Bladder Father's side aunt Relation Name Status Comments Father's side Social History Tobacco Use Types Packs/Day Years Used Date Smoking Tobacco: Former Cigarettes 0.5 31 0 1971 - 08/02/2001 Passive Smoke Exposure: Never Smokeless Tobacco: Never Tobacco Cessation:Counseling Given: Not Answered Comments:quit 2002 Alcohol Use Standard Drinks/Week Comments No 0 (1 standard drink = 0.6 oz pur e alcohol) Sex Assigned at Date Recorded Not on file Job Start Date Occupation Industry Not on file Not on file Not on file Last Filed Vital Signs Vital Sign Reading Time Taken Comments Blood Pressure 107/55 06/29/2023 10:59 AM EST Pulse 74 06/29/2023 10:59 AM EST Temperature 36.3 ??C (97.3 ??F) 06/29/2023 10:[address] Respiratory Rate 12 01/14/2023 10:20 AM EDT Oxygen Saturation 96% 01/09/2023 2:17 PM EDT Inhaled Oxygen Concentration - - Weight 85.7 kg (189 lb) 06/29/2023 10:59 AM EST Height 160 cm (5' 3 ) 06/29/2023 10:59 AM EST Body Mass Index 33.48 06/29/2023 10:59 AM EST Plan of Treatment Health Maintenance Due Date Last Done Comments SHINGLES VACCINE (2 of 2) 09/03/2014 07/09/2014, 03/2014 DIABETES: ANNUAL EYE EXAM 06/14/20202018 (External Completion), 08/26/2018 (External Completion), 06/16/2017 (External Completion), Additional history exists DIABETES: ANNUAL FOOT EXAM 05/14/202305/14, 09/05/2020 (Completed), 01/30/2019, Additional history exists BONE DENSITY SCREENING 05/28/2023 05/28/2021, 2017 DIABETES: BLOOD SUGAR CONTRO L TEST (HGBA1C) 07/19/2023 04/19/2023, 01/05/2023, 09/07/2022, Additional history exists MAMMOGRAM 10/15/2023 10/14/2022 (Exte rnal Completion), 10/23/2021, 09/30/2020 (External Completion), Additional history exists DIABETES/HEART DISEASE: DANUTA AL CHOLESTEROL (LDL) 01/06/2024 01/05/2023, 05/04/2022, 06/05/2021, Additional history exists DIABETES: ANNUAL URINE PROTE IN TEST (MICROALBUMIN) 01/06/2024 01/05/2023, 05/04/2022, 06/05/2021, Additional history exists DEPRESSION SCREEN 01/15/2024 01/14/2023, , 09/05/2020 (Completed), Additional history exists FALL RISK ASSESSMENT 01/15/2024 01/14/2023, 01/14/2023, 09/15/2021, Additional history exists COLON CANCER SCREENING 04/02/2024 , 04/02/2021 (Completed), 12/01/2016, Additional history exists Covid-19 Vaccine (2022-09 4 season) 2024 02/01/2023, 05/28/2021, 05/28/2021, Additional history exists BMI CHECK/ADVISE 08/02/2024 07/16/2023, , 11/16/2022, Additional history exists DEPRESSION SCREENING/FOLLOWUP 08/02/2024 (Completed), 05/28/2021, 05/25/2021, Additional history exists INFLUENZA (Season Ended) 2025 023, 05/13/2023, 05/06/2022, Additional history exists DTAP/TDAP/TD (3 - Td or Tdap) 11/03/2026 11/03/2016, 09/18/2011 HEPATITIS C SCREENING Completed 01/29/2017, 017 PNEUMOCOCCAL VACCINE Completed 02/01/2023, 05/31/2018, 05/31/2018, Additional history exists Care Teams Data Analyst Relationship Specialty Start Date End Date Julissa Junior MD PCP - General Internal Medicine 06/29/23
--- OUTSIDE RECORDS SUMMARY | 2024-12-12 11:18 | XMS_ITS | Encounter Summary ---
Author Organization [facility] Address [address] [place] [address] Care Team Providers Care Numerical Control Machine Operator Name Role Phone Amanda Lemon MD Primary Care Prov ider [facility], Pcp Primary Care Provider Julissa Gale MD Primary Care Provider Unavail able Encounter Details Date Type Department Care Team Description 05/27/2022 Refill Adult Medicine [address] [address] Amanda Lemon MD [address] [place] [address] [phone] Social History Tobacco Use Types Packs/Day Years [...] on filedocumented in this encounter Care Teams Numerical Control Machine Operator Relationship Specialty Start Date End Date Amanda Lemon MD [address] [place] [id number] PCP - General Internal Medicine 05/27/22 05/24/23 [facility], [place] [id number] PCP - General Internal Medicine 05/25/23 06/28/23 Julissa Junior MD [address] [place] [id number] PCP - General Internal Medicine 06/29/23 documented as of this encounter
--- OUTSIDE RECORDS SUMMARY | 2024-12-12 11:18 | XMS_ITS | Encounter Summary ---
Author Organization [facility] Address [address] [place] [address] Care Team Providers Care Fundraiser Name Role Phone Julissa Junior MD Primary Care Provider Unavail able Flor Painter MD Primary Care Provider Amanda Lemon MD Primary Care Prov ider [facility], Pcp Primary Care Provider Unavailabl e Julissa Junior MD Primary Care Provider Unavail able Encounter Details Date Type Department Care Team Description 03/19/2021 Refill Gastroenterology - [address] [place] [address] Noris Mcdonough MD Social History [...] Exposure Response Date Recorded In the last month, have you been in contact with someone who was confirmed or suspected to have Coronavirus / COVID-19? No / Unsure 03/13/2021 2:09 PM EDT documented as of this encounter Plan of Treatment Not on file documented as of this encounter Visit Diagnoses Not on filedocumented in this encounter Care Teams Fundraiser Relationship Specialty Start Date End Date Julissa Junior MD PCP - General Internal Medicine 09/15/16 09/08/21 Flor Painter MD [address] [place] [id number] PCP - General Internal Medicine 09/09/21 05/26/22 Amanda Lemon MD [address] [place] [id number] PCP - General Internal Medicine 05/27/22 05/24/23 [facility], Pcp [address] [place] [id number] PCP - General Internal Medicine 05/25/23 06/28/23 Julissa Junior MD [address] [place] [id number] PCP - General Internal Medicine 06/29/23 documented as of this encounter
--- OUTSIDE RECORDS SUMMARY | 2024-12-12 11:18 | XMS_ITS | Encounter Summary ---
Author Organization [facility] Address [address] [place] [address] Care Team Providers Care Agency Legal Counsel Name Role Phone Flor Painter MD Primary Care Provider [phone] Amanda Lemon MD Primary Care Prov ider [facility], Pcp Primary Care Provider Julissa Gale MD Primary Care Provider Unavail able Reason for Visit * Reason Comments E-prescribe Rx Request Encounter Details Date Type Department Care Team Description 01/06/2022 Refill Adult Medicine [address] [phone] Flor Painter MD [address] [place] [address] [phone] E-prescribe Rx Request Social History Tobacco Use [...] encounter Miscellaneous Notes * Telephone Encounter - Isreal East M.A. - 01/07/2022 11:46 AM EDT Lab Results Component Value Date HGBA1C 6.1 09/15/2021 MALBUR 70.6 06/05/2021 MALBCR 39.0 06/05/2021 CHOL 136 06/05/2021 LDL 54 06/05/2021 HDL 42 06/05/2021 TRIG 202 06/05/2021 GLU 101 03/20/2021 CREAT 0.72 03/20/2021 GATO w/PCP 11/03/2021 Next OV 01/13/2022 w/Aurora Blackmon documented in this encounter Plan of Treatment Not on file documented as of this encounter Visit Diagnoses Not on filedocumented in this encounter Care Teams Agency Legal Counsel Relationship Specialty Start Date End Date Flor Painter MD [address] [place] [address] PCP - General Internal Medicine 09/09/21 05/26/22 Amanda Lemon MD [address] [place] [address] PCP - General Internal Medicine 05/27/22 05/24/23 [facility], Pcp [address] [place], [place] [phone] PCP - General Internal Medicine 05/25/23 06/28/23 Julissa Junior MD [address] [place] [id number] PCP - General Internal Medicine 06/29/23 documented as of this encounter
--- OUTSIDE RECORDS SUMMARY | 2024-12-12 11:18 | XMS_ITS | Encounter Summary ---
Author Organization [facility] Address [address] [place] [address] Care Team Providers Care Adolescent Counselor Name Role Phone Julissa Junior MD Primary Care Provider Unavail able Flor Painter MD Primary Care Provider Amanda Lemon MD Primary Care Prov ider [facility], Pcp Primary Care Provider Unavailabl Julissa Junior MD Primary Care Provider Unavail able Encounter Details Date Type Department Care Team Description 12/08/2018 National Facilities Manager Report Medical Records [address] [place] [id number] Rehab., [place] Social History Tobacco Use Types Packs/Day Years [...] on filedocumented in this encounter Care Teams Adolescent Counselor Relationship Specialty Start Date End Date Julissa Junior MD PCP - General Internal Medicine 09/15/16 09/08/21 Flor Painter MD [address] [place] [id number] PCP - General Internal Medicine 09/09/21 05/26/22 Amanda Lemon MD [address] [place] [address] PCP - General Internal Medicine 05/27/22 05/24/23 [facility], [place] [address] PCP - General Internal Medicine 05/25/23 06/28/23 Julissa Junior MD [address] [place] [address] PCP - General Internal Medicine 06/29/23 documented as of this encounter
--- OUTSIDE RECORDS SUMMARY | 2024-12-12 11:18 | XMS_ITS | Encounter Summary ---
Author Organization [facility] Address [address] [place] [address] Care Team Providers Care Health And Safety Technician Name Role Phone Minerva Barragan DO Primary Care Pro vider Unavailable Zabrina Tavarez Primary Care Provider UnavailJulissa Rojas MD Primary Care Provider Unavail able Flor Painter MD Primary Care Provider [phone] Amanda Lemon MD Primary Care Prov ider [facility], [facility], [facility] Primary Care Provider UnavailJulissa Rojas MD Primary Care Provider Unavail able Encounter Details Date Type Department Care Team Description 09/14/2014 Hospital Medical Records [address] [place] [address] Silver Peters MD Social History Tobacco Use [...] on filedocumented in this encounter Care Teams Health And Safety Technician Relationship Specialty Start Date End Date Minerva Barragan DO PCP - General Internal Medicine 06/13/14 01/31/15 Zabrina Tavarez PCP - General Internal Medicine 02/01/15 09/14/16 Julissa Junior MD PCP - General Internal Medicine 09/15/16 09/08/21 Flor Painter MD [address] [place] [address] PCP - General Internal Medicine 09/09/21 05/26/22 Amanda Lemon MD [address] [place] [address] PCP - General Internal Medicine 05/27/22 05/24/23 Sahil, Pcp [address] [place], [place] [phone] PCP - General Internal Medicine 05/25/23 06/28/23 Julissa Junior MD [address] [place] [id number] PCP - General Internal Medicine 06/29/23 documented as of this encounter
--- OUTSIDE RECORDS SUMMARY | 2024-12-12 11:18 | XMS_ITS | Encounter Summary ---
Author Organization [facility] Address [address] [place] [address] Care Team Providers Care Technical Artist Name Role Phone Minerva Barragan DO Primary Care Pro vider Unavailable CorbyZabrina schreiber Primary Care Provider UnavailJulissa Rojas MD Primary Care Provider Unavail able Flor Painter MD Primary Care Provider Amanda Lemon MD Primary Care Prov ider [facility], Pcp Primary Care Provider UnavailJulissa Rojas MD Primary Care Provider Unavail able Reason for Visit * Reason Onset Date Comments Provider Call Back 09/07/2014 Encounter Details Date Type Department Care Team Description 09/07/2014 Telephone Adult Medicine [address] [address] Minerva Barragan DO Provider Call Back Social History Tobacco Use Types Packs/Day Years [...] encounter Miscellaneous Notes * Telephone Encounter - Minerva Horn DO - 09/11/2014 11:19 AM EST I haven't received a call yet * Telephone Encounter - Jovita Olguin M.A. - 09/10/2014 11:29 AM EST fyi for pcp * Telephone Encounter - Sandra Bustamante - 09/10/2014 10:27 AM EST Pt's former pcp office calling back, pt's dx cvd risk due to type 2 diabetes,hyperlipedemia,obesity, allergic to aspirin * Telephone Encounter - Jovita Olguin M.A. - 09/07/2014 11:22 AM EST [facility] [phone] when staff returns call, please ask what dx pt is taking plavix for? documented in this encounter Plan of Treatment Not on file documented as of this encounter Visit Diagnoses Not on filedocumented in this encounter Care Teams Technical Artist Relationship Specialty Start Date End Date Minerva Barragan DO PCP - General Internal Medicine 06/13/14 01/31/15 Zabrina Tavarez PCP - General Internal Medicine 02/01/15 09/14/16 Julissa Junior MD PCP - General Internal Medicine 09/15/16 09/08/21 Flor Painter MD [address] [place] [address] PCP - General Internal Medicine 09/09/21 05/26/22 Amanda Lemon MD [address] [place] [address] PCP - General Internal Medicine 05/27/22 05/24/23 [facility], Pcp [address] [place] [address] PCP - General Internal Medicine 05/25/23 06/28/23 Julissa Junior MD [address] [place] [id number] PCP - General Internal Medicine 06/29/23 documented as of this encounter
--- OUTSIDE RECORDS SUMMARY | 2024-12-12 11:18 | XMS_ITS | Encounter Summary ---
Author Organization [facility] Address [address] [place] [address] Care Team Providers Care Rip/Mould Operator Name Role Phone Minerva Barragan DO Primary Care Pro vider Unavailable Zabrina Tavarez Primary Care Provider UnavailJulissa Rojas MD Primary Care Provider Unavail able Flor Painter MD Primary Care Provider Amanda Lemon MD Primary Care Prov ider [facility], Pcp Primary Care Provider Julissa Gale MD Primary Care Provider Unavail able Reason for Visit * Reason Onset Date Comments medication problems 12/05/2014 Encounter Details Date Type Department Care Team Description 12/05/2014 Telephone Adult Medicine [address] [address] Minerva Barragan DO medication problems Social History Tobacco Use Types [...] encounter Miscellaneous Notes * Telephone Encounter - Sailaja Ibarra M.A. - 12/05/2014 3:25 PM EDT Fax on annas desk for signature * Telephone Encounter - Allie Fournier - 12/05/2014 1:40 PM EDT What is the name of the medication patient is having a problem with?: pregabalin What is the problem?: please hand sign and send back - See fax Is the patient calling about the problem? NO If the patient is not the caller who is? [facility] Is this a NEW medication?: YES How long has the patient been taking this medication? Pt has not taken yet Who prescribed this medication for the patient? Rhonda Joshi Who is patients PCP?: Minerva Nieves Payor: [employer] FFS / Plan: FFS HMO $0 [place] [id number] / Product Type: MEDICAID RISK documented in this encounter Plan of Treatment Not on file documented as of this encounter Visit Diagnoses Not on filedocumented in this encounter Care Teams Rip/Mould Operator Relationship Specialty Start Date End Date Minerva Barragan DO PCP - General Internal Medicine 06/13/14 01/31/15 Zabrina Tavarez PCP - General Internal Medicine 02/01/15 09/14/16 Julissa Junior MD PCP - General Internal Medicine 09/15/16 09/08/21 Flor Painter MD [address] [place] [address] PCP - General Internal Medicine 09/09/21 05/26/22 Amanda Lemon MD [address] [place] [address] PCP - General Internal Medicine 05/27/22 05/24/23 Sahil, Rosita [address] [place], [place] [phone] PCP - General Internal Medicine 05/25/23 06/28/23 Julissa Junior MD [address] [place] [address] PCP - General Internal Medicine 06/29/23 documented as of this encounter
--- OUTSIDE RECORDS SUMMARY | 2024-12-12 11:18 | XMS_ITS | Encounter Summary ---
Author Organization [facility] Address [address] [place] [address] Care Team Providers Care Shrink Pit Supervisor Name Role Phone Julissa Junior MD Primary Care Provider Unavail able Flor Painter MD Primary Care Provider Amanda Lemon MD Primary Care Prov ider [facility], Pcp Primary Care Provider Unavailabl e Julissa Junior MD Primary Care Provider Unavail able Reason for Visit * Reason Onset Date Comments Testing 03/07/2021 DXA BONE DENSITY STUDY 1+ SITS AXIAL SKEL Encounter Details Date Type Department Care Team Description 03/07/2021 [place] Adult [address] [phone] Julissa Junior MD Testing (DXA BONE DENSITY STUDY 1+ SITS AXIAL SKEL) Social History Tobacco Use Types Packs/Day Years [...] encounter Miscellaneous Notes * Telephone Encounter - Audi Syed M.A. - 03/07/2021 2:48 PM EDT Letter mailed to patient. * Telephone Encounter - Julissa Junior MD - 03/07/2021 2:33 PM EDT complete * Telephone Encounter - Audi Syed M.A. - 03/07/2021 2:27 PM EDT DXA BONE DENSITY STUDY 1+ SITS AXIAL SKEL was ordered 09/05/20, do you want to complete or cancel theorder? documented in this encounter Plan of Treatment Not on file documented as of this encounter Visit Diagnoses Not on filedocumented in this encounter Care Teams Shrink Pit Supervisor Relationship Specialty Start Date End Date Julissa Junior MD PCP - General Internal Medicine 09/15/16 09/08/21 Flor Painter MD [address] [place] [address] PCP - General Internal Medicine 09/09/21 05/26/22 Amanda Lemon MD [address] [place] [address] PCP - General Internal Medicine 05/27/22 05/24/23 [facility], Pcp [address] [place], [place] [phone] PCP - General Internal Medicine 05/25/23 06/28/23 Julissa Junior MD [address] [place] [address] PCP - General Internal Medicine 06/29/23 documented as of this encounter
--- OUTSIDE RECORDS SUMMARY | 2024-12-12 11:18 | XMS_ITS | Encounter Summary ---
Author Organization [facility] Address [address] [place] [address] Care Team Providers Care Studio Technician Name Role Phone Julissa Junior MD Primary Care Provider Unavail able Flor Painter MD Primary Care Provider [phone] Amanda Lemon MD Primary Care Prov ider [facility], Pcp Primary Care Provider Unavailabl Julissa Junior MD Primary Care Provider Unavail able Encounter Details Date Type Department Care Team Description 05/26/2019 [place] Adult [address] [phone] Julissa Junior MD Social History Tobacco Use [...] on filedocumented in this encounter Care Teams Studio Technician Relationship Specialty Start Date End Date Julissa Junior MD PCP - General Internal Medicine 09/15/16 09/08/21 Flor Painter MD [address] [place] [address] PCP - General Internal Medicine 09/09/21 05/26/22 Amanda Lemon MD [address] [place] [address] PCP - General Internal Medicine 05/27/22 05/24/23 [facility], [place] [address] PCP - General Internal Medicine 05/25/23 06/28/23 Julissa Junior MD [address] [place] [address] PCP - General Internal Medicine 06/29/23 documented as of this encounter
--- OUTSIDE RECORDS SUMMARY | 2024-12-12 11:18 | XMS_ITS | Encounter Summary ---
Author Organization [facility] Address [address] [place] [address] Care Team Providers Care Automated Cutting Machine Operator Name Role Phone Julissa Junior MD Primary Care Provider Unavail able Flor Painter MD Primary Care Provider [phone] Amanda Lemon MD Primary Care Prov ider [facility], Pcp Primary Care Provider Unavailabl e Julissa Junior MD Primary Care Provider Unavail able Encounter Details Date Type Department Care Team Description 04/04/2021 Orders Only Medical Records [address] [place] [address] Noris Mcdonough MD Social History Tobacco Use [...] on file documented as of this encounter Procedures Procedure Name Priority Date/Time Associated Diagnosis Comments OUTSIDE PATHOLOGY Routine 04/02/2021 documented in this encounter Results * OUTSIDE PATHOLOGY (04/02/2021) Noris Mcdonough MD OUTSIDE LAB documented in this encounter Visit Diagnoses Not on filedocumented in this encounter Care Teams Automated Cutting Machine Operator Relationship Specialty Start Date End Date Julissa Junior MD PCP - General Internal Medicine 09/15/16 09/08/21 Flor Painter MD [address] [place] [address] PCP - General Internal Medicine 09/09/21 05/26/22 Amanda Lemon MD [address] [place] [address] PCP - General Internal Medicine 05/27/22 05/24/23 [facility], [address] [address] PCP - General Internal Medicine 05/25/23 06/28/23 Julissa Junior MD [address] [place] [address] PCP - General Internal Medicine 06/29/23 documented as of this encounter
--- OUTSIDE RECORDS SUMMARY | 2024-12-12 11:18 | XMS_ITS | Encounter Summary ---
Author Organization [facility] Address [address] [place] [address] Care Team Providers Care Manager Respiratory Care Name Role Phone Julissa Junior MD Primary Care Provider Unavail able Flor Painter MD Primary Care Provider Amanda Lemon MD Primary Care Prov ider [facility], Pcp Primary Care Provider Unavailabl Julissa Junior MD Primary Care Provider Unavail able Encounter Details Date Type Department Care Team Description 09/12/2018 [facility] Coordinator Report Medical Records [address] [place] [address] Gabino Hill MD Social History Tobacco Use Types Packs/Day [...] on filedocumented in this encounter Care Teams Manager Respiratory Care Relationship Specialty Start Date End Date Julissa Junior MD PCP - General Internal Medicine 09/15/16 09/08/21 Flor Painter MD [address] [place] [address] PCP - General Internal Medicine 09/09/21 05/26/22 Amanda Lemon MD [address] [place] [address] PCP - General Internal Medicine 05/27/22 05/24/23 [facility], [place] [address] PCP - General Internal Medicine 05/25/23 06/28/23 Julissa Junior MD [address] [place] [address] PCP - General Internal Medicine 06/29/23 documented as of this encounter
--- OUTSIDE RECORDS SUMMARY | 2024-12-12 11:18 | XMS_ITS | Encounter Summary ---
Author Organization [facility] Address [address] [place] [address] Care Team Providers Care Forensic Engineer Name Role Phone Julissa Junior MD Primary Care Provider Unavail able Flor Painter MD Primary Care Provider [phone] Amanda Lemon MD Primary Care Prov ider [facility], Pcp Primary Care Provider Unavailabl Julissa Junior MD Primary Care Provider Unavail able Encounter Details Date Type Department Care Team Description 01/08/2021 SCAN Medical Records [address] [place] [id number] Abstract, Provider Social History Tobacco Use Types [...] on filedocumented in this encounter Care Teams Forensic Engineer Relationship Specialty Start Date End Date Julissa Junior MD PCP - General Internal Medicine 09/15/16 09/08/21 Flor Painter MD [address] [place] [address] PCP - General Internal Medicine 09/09/21 05/26/22 Amanda Lemon MD [address] [place] [address] PCP - General Internal Medicine 05/27/22 05/24/23 [facility], [place] [address] PCP - General Internal Medicine 05/25/23 06/28/23 Julissa Junior MD [address] [place] [address] PCP - General Internal Medicine 06/29/23 documented as of this encounter
--- OUTSIDE RECORDS SUMMARY | 2024-12-12 11:18 | XMS_ITS | Encounter Summary ---
Author Organization [facility] Address [address] [place] [address] Care Team Providers Care Cycle Counter Name Role Phone Minerva Barragan DO Primary Care Pro vider Unavailable Zabrina Tavarez Primary Care Provider UnavailJulissa Rojas MD Primary Care Provider Unavail able Flor Painter MD Primary Care Provider Amanda Lemon MD Primary Care Prov ider [facility], Pcp Primary Care Provider UnavailJulissa Rojas MD Primary Care Provider Unavail able Reason for Visit * Reason Onset Date Comments REFERRAL 12/12/2014 Encounter Details Date Type Department Care Team Description 12/12/2014 Telephone Gastroenterology - [address] [phone] Minerva Barragan DO REFERRAL Social History Tobacco Use Types Packs/Day Years [...] encounter Miscellaneous Notes * Telephone Encounter - Stacey Watson - 12/12/2014 12:05 PM EDT Patient was referred to Gastro and has not followed through on this they will be removed from the active list. documented in this encounter Plan of Treatment Not on file documented as of this encounter Visit Diagnoses Not on filedocumented in this encounter Care Teams Cycle Counter Relationship Specialty Start Date End Date Minerva Barragan DO PCP - General Internal Medicine 06/13/14 01/31/15 Zabrina Tavarez PCP - General Internal Medicine 02/01/15 09/14/16 Julissa Junior MD PCP - General Internal Medicine 09/15/16 09/08/21 Flor Painter MD [address] [place] [address] PCP - General Internal Medicine 09/09/21 05/26/22 Amanda Lemon MD [address] [place] [address] PCP - General Internal Medicine 05/27/22 05/24/[address] [address] PCP - General Internal Medicine 05/25/23 06/28/23 Julissa Junior MD [address] [place] [address] PCP - General Internal Medicine 06/29/23 documented as of this encounter
--- OUTSIDE RECORDS SUMMARY | 2024-12-12 11:18 | XMS_ITS | Encounter Summary ---
Author Organization [facility] Address [address] [place] [address] Care Team Providers Care Housing Counselor Name Role Phone Julissa Junior MD Primary Care Provider Unavail able Flor Painter MD Primary Care Provider Amanda Lemon MD Primary Care Prov ider [facility] [place], Pcp Primary Care Provider Unavailabl Julissa Junior MD Primary Care Provider Unavail able Encounter Details Date Type Department Care Team Description 04/06/2017 Tape Editor Report Medical Records [address] [place] [id number] Abstract, Provider Social History Tobacco Use Types [...] on filedocumented in this encounter Care Teams Housing Counselor Relationship Specialty Start Date End Date Julissa Junior MD PCP - General Internal Medicine 09/15/16 09/08/21 Flor Painter MD [address] [place] [address] [phone] PCP - General Internal Medicine 09/09/21 05/26/22 Amanda Lemon MD [address] [place] [address] PCP - General Internal Medicine 05/27/22 05/24/23 [facility] [place], [place] [address] PCP - General Internal Medicine 05/25/23 06/28/23 Julissa Junior MD [address] [place] [address] PCP - General Internal Medicine 06/29/23 documented as of this encounter
--- OUTSIDE RECORDS SUMMARY | 2024-12-12 11:18 | XMS_ITS | Encounter Summary ---
Author Organization [facility] Address [address] [place] [address] Care Team Providers Care Chief Scientific Officer Name Role Phone Julissa Junior MD Primary Care Provider Unavail able Flor Painter MD Primary Care Provider Amanda Lemon MD Primary Care Prov ider Counts [facility], Pcp Primary Care Provider Unavailabl e Julissa Junior MD Primary Care Provider Unavail able Reason for Visit * Reason Onset Date Comments Slurry Tank Operator Feedback 11/02/2017 [facility] Encounter Details Date Type Department Care Team Description 11/02/2017 Telephone Adult [address] [address] Richard Russ MD Slurry Tank Operator Feedback ([facility]) Social History Tobacco Use Types Packs/Day Years [...] encounter Miscellaneous Notes * Telephone Encounter - Neela Pantoja - 11/02/2017 2:28 PM EDT Notes and order re-faxed to [facility] [phone]. * Telephone Encounter - Jovita Olguin M.A. - 11/02/2017 2:11 PM EDT Pt came into clinic today, was sent by [facility] to ask why our office did not forward office notes to them/ I see that Neela Laurent did chart that information was sent on 09/22/17 to [facility] please follow up thank you documented in this encounter Plan of Treatment Not on file documented as of this encounter Visit Diagnoses Not on filedocumented in this encounter Care Teams Chief Scientific Officer Relationship Specialty Start Date End Date Julissa Junior MD PCP - General Internal Medicine 09/15/16 09/08/21 Flor Painter MD [address] [place] [address] PCP - General Internal Medicine 09/09/21 05/26/22 Amanda Lemon MD [address] [place] [address] PCP - General Internal Medicine 05/27/22 05/24/23 [facility], Pcp [address] [place], [place] [phone] PCP - General Internal Medicine 05/25/23 06/28/23 Julissa Junior MD [address] [place] [address] PCP - General Internal Medicine 06/29/23 documented as of this encounter
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
--- OUTSIDE RECORDS SUMMARY | 2024-12-12 11:18 | XMS_ITS | Encounter Summary ---
Author Organization [facility] Address [address] [place] [address] Care Team Providers Care Sign Letterer Name Role Phone Julissa Junior MD Primary Care Provider Unavail able Flor Painter MD Primary Care Provider [phone] Amanda Lemon MD Primary Care Prov ider [facility], Pcp Primary Care Provider Unavailabl Julissa Junior MD Primary Care Provider Unavail able Encounter Details Date Type Department Care Team Description 12/27/2018 Scouring Pads Supervisor Report Medical Records [address] [place] [address] Silver Peters MD Social History Tobacco Use [...] on filedocumented in this encounter Care Teams Sign Letterer Relationship Specialty Start Date End Date Julissa Junior MD PCP - General Internal Medicine 09/15/16 09/08/21 Flor Painter MD [address] [place] [address] PCP - General Internal Medicine 09/09/21 05/26/22 Amanda Lemon MD [address] [place] [address] PCP - General Internal Medicine 05/27/22 05/24/23 [facility], [place] [address] PCP - General Internal Medicine 05/25/23 06/28/23 Julissa Junior MD [address] [place] [address] PCP - General Internal Medicine 06/29/23 documented as of this encounter
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
--- OUTSIDE RECORDS SUMMARY | 2024-12-12 11:19 | XMS_ITS | Encounter Summary ---
Author Organization [facility] Address [address] [place] [address] Care Team Providers Care Bag Turner Name Role Phone Milly Padilla MD Primary Care Provider Unav ailable Minerva Barragan DO Primary Care Pro vider Unavailable CorbyZabrina schreiber Primary Care Provider UnavailJulissa Rojas MD Primary Care Provider Unavail able Flor Painter MD Primary Care Provider Amanda Lemon MD Primary Care Prov ider [facility], Pcp Primary Care Provider Julissa Gale MD Primary Care Provider Unavail able Encounter Details Date Type Department Care Team Description 02/21/2014 SCAN Medical Records [address] [place] [address] Jurgen Tovar Social History Tobacco Use Types Packs/Day Years Used Date Smoking Tobacco: Never Assessed Sex Assigned at Date Recorded Not on file Job Start Date Occupation Industry Not on file Not on file Not on file documented as of this encounter Plan of Treatment Not on file documented as of this encounter Procedures Procedure Name Priority Date/Time Associated Diagnosis Comments OUTSIDE EKG Routine 02/21/2014 documented in this encounter Results * OUTSIDE EKG (02/21/2014) Provider Abstract CARDIOLOGY documented in this encounter Visit Diagnoses Not on filedocumented in this encounter Care Teams Bag Turner Relationship Specialty Start Date End Date Milly Padilla MD PCP - General Family Practice 06/16/11 06/12/14 Minerva Barragan DO PCP - General Internal Medicine 06/13/14 01/31/15 Zabrina Tavarez PCP - General Internal Medicine 02/01/15 09/14/16 Julissa Junior MD PCP - General Internal Medicine 09/15/16 09/08/21 Flor Painter MD [address] [place] [address] PCP - General Internal Medicine 09/09/21 05/26/22 Amanda Lemon MD [address] [place] [address] PCP - General Internal Medicine 05/27/22 05/24/23 Rosita Baxter [address] [place] [address] PCP - General Internal Medicine 05/25/23 06/28/23 Julissa Junior MD [address] [place] [address] PCP - General Internal Medicine 06/29/23 documented as of this encounter
--- OUTSIDE RECORDS SUMMARY | 2024-12-12 11:19 | XMS_ITS | Encounter Summary ---
Author Organization [facility] Address [address] [place] [address] Care Team Providers Care Specialty Department Supervisor Name Role Phone Flor Painter MD Primary Care Provider Amanda Lemon MD Primary Care Prov ider [facility], Pcp Primary Care Provider Julissa Gale MD Primary Care Provider Unavail able Encounter Details Date Type Department Care Team Description 10/04/2021 [facility] Medical Records [address] [place] [address] Jen Orellana MD Social History Tobacco Use Types Packs/Day [...] have Coronavirus / COVID-19? No / Unsure 09/15/2021 8:46 AM EST documented as of this encounter Plan of Treatment Not on file documented as of this encounter Visit Diagnoses Not on filedocumented in this encounter Care Teams Specialty Department Supervisor Relationship Specialty Start Date End Date Flor Painter MD [address] [place] [address] PCP - General Internal Medicine 09/09/21 05/26/22 Amanda Lemon MD [address] [place] [address] PCP - General Internal Medicine 05/27/22 05/24/23 [facility], Pcp [address] [place] [address] PCP - General Internal Medicine 05/25/23 06/28/23 Julissa Junior MD [address] [place] [address] PCP - General Internal Medicine 06/29/23 documented as of this encounter
--- OUTSIDE RECORDS SUMMARY | 2024-12-12 11:19 | XMS_ITS | Encounter Summary ---
Author Organization [facility] Address [address] [place] [address] Care Team Providers Care Licensed Esthetician Name Role Phone Milly Padilla MD Primary Care Provider Unav ailable Minerva Barragan DO Primary Care Pro vider Unavailable CorbyZabrina schreiber Primary Care Provider UnavailJulissa Rojas MD Primary Care Provider Unavail able Flor Painter MD Primary Care Provider Amanda Lemon MD Primary Care Prov ider [facility], Pcp Primary Care Provider Julissa Gale MD Primary Care Provider Unavail able Encounter Details Date Type Department Care Team Description 02/21/2014 SCAN Medical Records [address] [place] [address] Jurgen Tovar Social History Tobacco Use Types Packs/Day Years Used Date Smoking Tobacco: Never Assessed Sex Assigned at Date Recorded Not on file Job Start Date Occupation Industry Not on file Not on file Not on file documented as of this encounter Plan of Treatment Not on file documented as of this encounter Procedures Procedure Name Priority Date/Time Associated Diagnosis Comments OUTSIDE EMG Routine 02/21/2014 documented in this encounter Results * OUTSIDE EMG (02/21/2014) Provider Abstract PERFORMABLES documented in this encounter Visit Diagnoses Not on filedocumented in this encounter Care Teams Licensed Esthetician Relationship Specialty Start Date End Date Milly Padilla MD PCP - General Family Practice 06/16/11 06/12/14 Minerva Barragan DO PCP - General Internal Medicine 06/13/14 01/31/15 Zabrina Tavarez PCP - General Internal Medicine 02/01/15 09/14/16 Julissa Junior MD PCP - General Internal Medicine 09/15/16 09/08/21 Flor Painter MD [address] [place] [address] PCP - General Internal Medicine 09/09/21 05/26/22 Amanda Lemon MD [address] [place] [address] PCP - General Internal Medicine 05/27/22 05/24/23 Rosita Baxter [address] [place] [address] PCP - General Internal Medicine 05/25/23 06/28/23 Julissa Junior MD [address] [place] [address] PCP - General Internal Medicine 06/29/23 documented as of this encounter
--- OUTSIDE RECORDS SUMMARY | 2024-12-12 11:19 | XMS_ITS | Encounter Summary ---
Author Organization [facility] Address [address] [place] [address] Care Team Providers Care Tool Carrier Name Role Phone Antonio Junior MD Primary Care Provider Unavail able Flor Painter MD Primary Care Provider Amanda Lemon MD Primary Care Prov ider [facility], Pcp Primary Care Provider Unavailabl e Antonio Junior MD Primary Care Provider Unavail able Encounter Details Date Type Department Care Team Description 07/08/2018 Telephone Adult [address] [address] Antonio Junior MD Social History Tobacco Use Types [...] encounter Miscellaneous Notes * Telephone Encounter - Ksenia Olsen - 07/08/2018 4:02 PM EST Date of surgery:08-24-2018 What surgery is patient having (gall bladder, cataract, appendix, etc...)?: Left shoulder arthroscopy Surgeon's name: Dr Hill Office phone number of surgeon: [phone] Fax # for surgeons office: [phone] Where is surgery being performed? [facility] Admitting Diagnosis/problem for surgery: Rotator cuff tear PCP: ANTONIO POMPA Did you verify that the insurance below is correct? YES Patients insurance: [place] / [place] / Product Type: MEDICARE [id number] documented in this encounter Plan of Treatment Not on file documented as of this encounter Visit Diagnoses Not on filedocumented in this encounter Care Teams Tool Carrier Relationship Specialty Start Date End Date Antonio Junior MD PCP - General Internal Medicine 09/15/16 09/08/21 Flor Painter MD [address] [place] [address] PCP - General Internal Medicine 09/09/21 05/26/22 Amanda Lemon MD [address] [place], [place] [id number] PCP - General Internal Medicine 05/27/22 05/24/[address] [address] PCP - General Internal Medicine 05/25/23 06/28/23 Antonio Junior MD [address] [place] [address] PCP - General Internal Medicine 06/29/23 documented as of this encounter
--- OUTSIDE RECORDS SUMMARY | 2024-12-12 11:19 | XMS_ITS | Encounter Summary ---
Author Organization [facility] Address [address] [place] [address] Care Team Providers Care Principal Law Clerk Name Role Phone Julissa Junior MD Primary Care Provider Unavail able Flor Painter MD Primary Care Provider Amanda Lemon MD Primary Care Prov ider [facility], Pcp Primary Care Provider Unavailabl e Julissa Junior MD Primary Care Provider Unavail able Reason for Visit * Reason Onset Date Comments Gi Dvd/web Review 10/16/2016 Encounter Details Date Type Department Care Team Description 10/16/2016 Telephone Gastroenterology - [place] [address] [place] [address] [id number] [place] [address] Gi Dvd/web Review Social History Tobacco Use Types Packs/Day Years [...] encounter Miscellaneous Notes * Telephone Encounter - Kayley Butt R.N. - 10/21/2016 2:55 PM EDT Called pt to verify if she is still on Plavix. On her schedule for CN it states that she no longer takes it, but it remains on her med list. I spoke with her brother who interprets for her and she stated that she stopped taking it about 2 years ago as her new doctor told her she didn't need it. There is no indication of a procedure that she had that requires Plavix. * Telephone Encounter - Lou Driver - 10/16/2016 12:48 PM EDT Patient previewed instructional information for screening colonoscopy. Visit Type: Colonoscopy: An Overview via DVD Presentation by: DVD reviewed by patient--Patient confirms viewing of DVD in its entirety. NO Was the patient informed that this is part of their informed consent? YES DVD topics include: Colonoscopy Procedure Monitored Sedation Informed Consent Screeniong Colonoscopy Waiver Bowel Preparation: Go Lytely --prescription given Diet Preparation Manufacturing Shift Supervisor for transportation home. Insurance coverage--Patient instructed to call insurance company to verify coverage. Medication List: Current Outpatient Prescriptions Medication Sig Dispense Refill ??? lidocaine (LIDODERM) 5 % Place 1 Patch onto the skin every 24 hours. Apply for no more than 12 hours in any 24 hour period. 10 Patch 0 ??? omeprazole (PRILOSEC) 20 MG capsule Take 20 mg by mouth daily. ??? gabapentin (NEURONTIN) 100 MG capsule Take 100 mg by mouth daily. ??? calcium carbonate (OS-VERONICA) 1250 (500 CA) MG tablet Take 1 tablet by mouth daily. ??? cyclobenzaprine (FLEXERIL) 10 MG tablet Take 10 mg by mouth 2 times daily. ??? esomeprazole (NEXIUM) 20 MG capsule Take 1 Cap by mouth every morning (before breakfast). 30 Cap 5 ??? capsicum (ZOSTRIX) 0.075 % topical cream Apply topically 3 times daily. 28.3 g 0 ??? fluoxetine (PROZAC) 20 MG tablet Take 20 mg by mouth BID 60 Tab 2 ??? Insulin Glargine (LANTUS SOLOSTAR) 100 UNIT/ML Solution Pen-injector Inject 22 Units into the skin at bedtime. 5 Device 1 ??? loratadine (CLARITIN) 10 MG tablet Take 1 Tab by mouth daily. 90 Tab 1 ??? clopidogrel (PLAVIX) 75 MG tablet Take 1 Tab by mouth daily. 90 Tab 1 ??? topiramate (TOPAMAX) 25 MG tablet Take 1 Tab by mouth daily. 90 Tab 1 ??? Insulin Pen Needle (NOVOFINE) 32G X 6 MM Misc 1 Each by Does not apply route daily. 100 Each 1 ??? CELEBREX 200 MG capsule Take 1 Cap by mouth 2 times daily. 60 Cap 5 ??? Cholecalciferol 1000 UNITS Tab Take by mouth. ??? trazodone (DESYREL) 50 MG tablet Take 50 mg by mouth at bedtime. No current facility-administered medications for this visit. Med List reviewed: YES Medication changes needed: no Preferred Pharmacy entered yes [facility] Insurance information reviewed and verified: yes Payor: [employer] FFS / Plan: FFS HMO $0 [id number] / Product Type: MEDICAID RISK Patient was advised that they must call us if there are any changes in their insurance coverage prior to the procedure. yes Has the patient had a joint replacement in the last 6 months: NO Has the patient had a cardiac sent placed in the last 12 months: NO Has the patient had any open heart/bypass surgery in the last 4 months: NO Does the patient have an implanted defibrillator or pacemaker: NO Does the patient have any other implanted electronic devices: NO Is the patient taking any blood thinners : NO Patients weight or medical condition limits mobility: YES, has some difficulsty Waiver discussed--patient instructed to call insurance company to verify coverage:: YES Colonoscopy appointment booked: YES Patient information packet mailed: YES documented in this encounter Plan of Treatment Not on file documented as of this encounter Visit Diagnoses Not on filedocumented in this encounter Care Teams Principal Law Clerk Relationship Specialty Start Date End Date Julissa Junior MD PCP - General Internal Medicine 09/15/16 09/08/21 Flor Painter MD [address] [place] [address] PCP - General Internal Medicine 09/09/21 05/26/22 Amanda Lemon MD [address] [place] [address] PCP - General Internal Medicine 05/27/22 05/24/23 [facility], Pcp [address] [place] [address] PCP - General Internal Medicine 05/25/23 06/28/23 Julissa Junior MD [address] [place] [address] PCP - General Internal Medicine 06/29/23 documented as of this encounter
--- OUTSIDE RECORDS SUMMARY | 2024-12-12 11:19 | XMS_ITS | Encounter Summary ---
Author Organization [facility] Address [address] [place] [address] Care Team Providers Care Hunting Sales Leader Name Role Phone Flor Painter MD Primary Care Provider [phone] Amanda Lemon MD Primary Care Prov ider [facility], Pcp Primary Care Provider Julissa Gale MD Primary Care Provider Unavail able Encounter Details Date Type Department Care Team Description 09/30/2021 [facility] Medical Records [address] [place] [phone] Social History Tobacco Use Types Packs/Day Years [...] on filedocumented in this encounter Care Teams Hunting Sales Leader Relationship Specialty Start Date End Date Flor Painter MD [address] [place] [address] PCP - General Internal Medicine 09/09/21 05/26/22 Amanda Lemon MD [address] [place] [address] PCP - General Internal Medicine 05/27/22 05/24/23 [facility], [place] [address] [place] [address] PCP - General Internal Medicine 05/25/23 06/28/23 Julissa Junior MD [address] [place] [address] PCP - General Internal Medicine 06/29/23 documented as of this encounter
--- OUTSIDE RECORDS SUMMARY | 2024-12-12 11:19 | XMS_ITS | Clinical Summary ---
Author Organization [facility] Address [address] [place] [address] Care Team Providers Care Vehicle Trimmer Name Role Phone Amanda Lemon MD Primary Care Prov ider Allergies Active Allergy Reactions Criticality Noted Date Comments Adhesive Tape 05/24/2018 Aspirin 05/24/2018 Latex 05/24/2018 Other 09/15/2016 Oxycodone-Acetaminophen Itching 12/30/2021 Penicillins 05/24/2018 Medications Medication Sig Dispensed Refills Start Date End Date Status FLUoxetine (PROzac) 20 MG capsule Take 20 mg by mouth 2 (two) times a day. 5 04/19/2018 Active LANTUS SOLOSTAR 100 UNIT/ML injection Inject 22 Units under the skin every night at bedtime. 2 04/19/2018 Active BD PEN NEEDLE ADILENE U/F 32G X 4 MM MISC USE 4 TIMES A DAY WITH INSULIN 3 02/23/2018 Active metFORMIN (GLUCOPHAGE-XR) ER 24 hr tablet 500 mg Take 500 mg by mouth 2 (two) times a day with meals. 1 02/23/2018 Active methocarbamol (ROBAXIN) 750 MG tablet TAKE 1 TAB BY MOUTH 4 TIMES DAILY. 0 02/23/2018 Active topiramate (TOPAMAX) 25 MG tablet Take 25 mg by mouth daily. 1 02/23/2018 Active FREESTYLE LITE test strip USE TO CHECK BLOOD GLUCOSE 4 TIMES A DAY 1 03/17/2018 Active promethazine (PHENERGAN) 12.5 MG tablet Take 1 tablet (12.5 mg total) by mouth every 8 (eight) hours as needed for nausea. Do not take until after surgery 4 tablet 0 08/24/2018 Active Omeprazole 20 MG TBDD Take 1 tablet by mouth. 0 Active oxyCODONE (ROXICODONE) 5 MG immediate release tablet Take 1 tablet (5 mg total) by mouth every 6 (six) hours as needed for pain. Do not take until after surgery 20 tablet 0 09/12/2018 Active omeprazole (PriLOSEC) 40 MG capsule TAKE 1 CAP BY MOUTH DAILY FOR 360 DAYS. 11 10/26/2018 Active celecoxib (CeleBREX) 200 MG capsule Take 200 mg by mouth 2 (two) times a day. 4 11/22/2018 Active insulin aspart (NovoLOG FLEXPEN) injection 100 units/mL Inject into the skin 3 times daily before meals, 3 units >150-200, 5 units >200-250, if greater than 250 call provider 0 02/01/2019 Active loratadine (CLARITIN) 10 MG tablet TAKE 1 TABLET BY MOUTH EVERY DAY 0 04/13/2019 Active celecoxib (CeleBREX) 200 MG capsule TAKE 1 CAPSULE BY MOUTH TWICE A DAY 0 02/27/2019 Active atorvastatin (LIPITOR) tablet 10 mg 0 08/31/2019 Active Semaglutide,0.25 or 0.5MG/DOS, (OZEMPIC, 0.25 OR 0.5 MG/DOSE,) 2 MG/1.5ML SOPN Inject 0.5 mg under the skin. 0 10/03/2019 Active lisinopril (PRINIVIL,ZESTRIL) tablet 2.5 mg Take 2.5 mg by mouth. 0 11/07/2019 Active Polyethylene Glycol 3350 POWD Take 4,000 mL by mouth. 0 05/09/2020 Active pregabalin (LYRICA) 25 MG capsule TAKE 1 CAPSULE BY MOUTH DAILY FOR 360 DAYS 0 09/05/2020 Active meloxicam (MOBIC) 15 MG tablet Take 15 mg by mouth daily. 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 08/29/2018 Overview: Overview: Paresthesias of hands and feet Trigger finger, left middle finger 07/01/2018 Cervical stenosis of spinal canal 05/31/2018 Overview: Overview: S/p MRI 09/2017 Obesity (BMI 30-39.9) 05/31/2018 Calcific tendinitis of left shoulder 08/11/2017 Overview: Overview: Follows with physiatry Cervical radicular pain 08/09/2017 Overview: Overview: CS injections with NEOS GERD (gastroesophageal reflux disease) 7 Osteopenia 09/15/2016 Overview: Overview: Bone Density 06/2018 Vitamin D deficiency 09/15/2016 Osteoarthritis of lumbar spine 11/19/2014 Overview: Overview: Occasional CS shots at [facility] with Dr. Covarrubias Osteoarthritis of right knee 11/19/2014 Overview: Overview: arthroscopy 09/16, CS injections with Dr. Covarrubias Migraine 10/02/2014 WILL (obstructive sleep apnea) 10/02/2014 Overview: Overview: Not using CPAP machine Family History Medical History Relation Name Comments Diabetes Father Relation Name Status Comments Father Social History Tobacco Use Types Packs/Day Years Used Date Smoking Tobacco: Former Smokeless Tobacco: Never Alcohol Use Standard Drinks/Week Comments No 0 (1 standard drink = 0.6 oz pur e alcohol) Sex and Gender Information Value Date Recorded Sex Assigned at Not on file Gender Identity Not on file Sexual Orientation Not on file Job Start Date Occupation Industry Not on file Not on file Not on file Last Filed Vital Signs Vital Sign Reading Time Taken Comments Blood Pressure - - Pulse - - Temperature - - Respiratory Rate - - Oxygen Saturation - - Inhaled Oxygen Concentration - - Weight 104.3 kg (230 lb) 11/05/2020 10:59 AM EDT Height 160 cm (5' 3 ) 11/05/2020 10:59 AM EDT Body Mass Index 40.74 11/05/2020 10:59 AM EDT Plan of Treatment Health Maintenance Due Date Last Done Comments Hepatitis C Screening 1955 COVID-19 Vaccine (#1) 1953 Depression Screening 1965 BMI Counseling 1971 Preventative Health Evaluation 1971 Tobacco Cessation Counseling 1971 Colon Cancer Screening (Colonoscopy) 1998 Breast Cancer Screening (Mammogram) 2003 Shingrix-Zoster Vaccine (1 of 2) 2003 RSV Adult > 60+ Yrs or (1 - Risk 60-74 years 1-dose series) 2013 Fall Risk Assessment 2018 Osteoporosis Screening (DEXA Scan) 2018 Pneumococcal Vaccine (3 of 3 - PPSV23 or PCV20) 05/31/2019 05/31/2018, 08/16/2013 Influenza Vaccine (#1) 2024 , 06/04/2021, 05/31/2018, Additional history exists DTap / Tdap / Td (2 - Td or Tdap) 11/03/2026 11/03/2016 Hepatitis B Vaccines Aged Out No long er eligible based on patient's age to complete this topic RSV Ped < 20 months Aged Out No longe r eligible based on patient's age to complete this topic Care Teams Vehicle Trimmer Relationship Specialty Start Date End Date Amanda Lemon MD [address] [place] [address] PCP - General Internal Medicine 08/14/22
--- OUTSIDE RECORDS SUMMARY | 2024-12-12 11:19 | XMS_ITS | Encounter Summary ---
Author Organization [facility] Address [address] [place] [address] Care Team Providers Care Scalping Machine Operator Name Role Phone Milly Padilla MD Primary Care Provider Unav ailable Minerva Barragan DO Primary Care Pro vider Unavailable CorbyZabrina schreiber Primary Care Provider UnavailJulissa Rojas MD Primary Care Provider Unavail able Flor Painter MD Primary Care Provider Amanda Lemon MD Primary Care Prov ider [facility], Pcp Primary Care Provider Julissa Gale MD Primary Care Provider Unavail able Encounter Details Date Type Department Care Team Description 07/24/2009 [facility] Medical Records [address] [place] [address] Home Ludwig MD, MD Social History Tobacco Use Types Packs/Day Years Used Date Smoking Tobacco: Never Assessed Sex Assigned at Date Recorded Not on file Job Start Date Occupation Industry Not on file Not on file Not on file documented as of this encounter Plan of Treatment Not on file documented as of this encounter Procedures Procedure Name Priority Date/Time Associated Diagnosis Comments OUTSIDE SLEEP STUDY Routine 07/24/2009 documented in this encounter Results * OUTSIDE SLEEP STUDY (07/24/2009) Provider Abstract PULMONOLOGY documented in this encounter Visit Diagnoses Not on filedocumented in this encounter Care Teams Scalping Machine Operator Relationship Specialty Start Date End Date Milly Padilla MD PCP - General Family Practice 06/16/11 06/12/14 Minerva Barragan DO PCP - General Internal Medicine 06/13/14 01/31/15 Zabrina Tavarez PCP - General Internal Medicine 02/01/15 09/14/16 Julissa Junior MD PCP - General Internal Medicine 09/15/16 09/08/21 Flor Painter MD [address] [place] [address] PCP - General Internal Medicine 09/09/21 05/26/22 Amanda Lemon MD [address] [place] [address] PCP - General Internal Medicine 05/27/22 05/24/23 Rosita Baxter [address] [place] [address] PCP - General Internal Medicine 05/25/23 06/28/23 Julissa Junior MD [address] [place] [address] PCP - General Internal Medicine 06/29/23 documented as of this encounter
--- OUTSIDE RECORDS SUMMARY | 2024-12-12 11:19 | XMS_ITS | Encounter Summary ---
Author Organization [facility] Address [address] [place] [address] Care Team Providers Care Learning And Development Coordinator Name Role Phone Julissa Junior MD Primary Care Provider Unavail able Flor Painter MD Primary Care Provider Amanda Lemon MD Primary Care Prov ider [facility], Pcp Primary Care Provider Unavailabl Julissa Junior MD Primary Care Provider Unavail able Encounter Details Date Type Department Care Team Description 12/04/2016 Night Triage Doc Medical Records [address] [place] [phone] Abstract, Provider Social History Tobacco Use Types [...] on filedocumented in this encounter Care Teams Learning And Development Coordinator Relationship Specialty Start Date End Date Julissa Junior MD PCP - General Internal Medicine 09/15/16 09/08/21 Flor Painter MD [address] [place] [phone] PCP - General Internal Medicine 09/09/21 05/26/22 Amanda Lemon MD [address] [place] [address] PCP - General Internal Medicine 05/27/22 05/24/23 [facility], Pcp [address] [place] [address] PCP - General Internal Medicine 05/25/23 06/28/23 Julissa Junior MD [address] [place] [address] PCP - General Internal Medicine 06/29/23 documented as of this encounter
--- OUTSIDE RECORDS SUMMARY | 2024-12-12 11:19 | XMS_ITS | Encounter Summary ---
Author Organization [facility] Address [address] [place] [address] Care Team Providers Care Bookkeeper Assistant Name Role Phone Milly Padilla MD Primary Care Provider Unav ailable Minerva Barragan DO Primary Care Pro vider Unavailable CorbyZabrina schreiber Primary Care Provider UnavailJulissa Rojas MD Primary Care Provider Unavail able Flor Painter MD Primary Care Provider Amanda Lemon MD Primary Care Prov ider [facility], Pcp Primary Care Provider Julissa Gale MD Primary Care Provider Unavail able Encounter Details Date Type Department Care Team Description 07/16/2009 [facility] Medical Records [address] [place] [phone] Home Ludwig MD, MD Social History Tobacco [...] Associated Diagnosis Comments OUTSIDE SLEEP STUDY Routine 07/16/2009 documented in this encounter Results * OUTSIDE SLEEP STUDY (07/16/2009) Provider Abstract PULMONOLOGY documented in this encounter Visit Diagnoses Not on filedocumented in this encounter Care Teams Bookkeeper Assistant Relationship Specialty Start Date End Date Milly Padilla MD PCP - General Family Practice 06/16/11 06/12/14 Minerva Barragan DO PCP - General Internal Medicine 06/13/14 01/31/15 Zabrina Tavarez PCP - General Internal Medicine 02/01/15 09/14/16 Julissa Junior MD PCP - General Internal Medicine 09/15/16 09/08/21 Flor Painter MD [address] [place] [phone] PCP - General Internal Medicine 09/09/21 05/26/22 Amanda Lemon MD [address] [place] [address] PCP - General Internal Medicine 05/27/22 05/24/23 Rosita Baxter [address] [place] [address] PCP - General Internal Medicine 05/25/23 06/28/23 Julissa Junior MD [address] [place] [address] PCP - General Internal Medicine 06/29/23 documented as of this encounter
--- OUTSIDE RECORDS SUMMARY | 2024-12-12 11:19 | XMS_ITS | Clinical Summary ---
Author Organization [facility] Address [address] [place] [address] Care Team Providers Care Commercial Banker Name Role Phone Julissa Junior MD Primary Care Provider [phone] Surgical History Surgery Date Site/Laterality Comments APPENDECTOMY PROCEDURE: HISTORICAL APPENDECTOMY CHOLECYSTECTOMY PROCEDURE: HISTORICAL CHOLECYSTECTOMY KNEE ARTHROSCOPY W/ MENISCAL REPAIR 09/20/2014 Right PROCEDURE: CO ARTHROSCOPY KNEE W/MENISCUS RPR MEDIAL/LATERAL COLONOSCOPY 11/30/2016 PROCEDURE: HISTORICAL COLONOSCOPY; COMMENT: Nine polyps COLONOSCOPY 04/02/2021 PROCEDURE: HISTORICAL COLONOSCOPY; COMMENT: 8 polyps removed Medical History Medical History Date Comments Migraine 10/02/2014 DX:Migraine Osteoarthritis of lumbar spine 11/19/2014 D X:Osteoarthritis of lumbar spine; COMMENT: Occasional CS shots at [facility] with Dr. 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 (CMS/HCC V24, CMS/HCC V28) DX:Controlled type 2 diabet es mellitus with neurological manifestations (HCC); COMMENT: Paresthesias of hands and feet Type 2 diabetes mellitus wit h microalbuminuria (CMS/HCC V24, CMS/HCC V28) 09/16/2016 DX:Type 2 diabetes mellitus with microalbuminuria (HCC) Cervical radicular pain 08/09/2017 DX:Cervi deysi radicular pain; COMMENT: CS injections with [facility] Calcific tendinitis of left shoulder 08/11/2017 DX:Calcific tendinitis of left shoulder; COMMENT: Follows with physiatry Obesity (BMI 30-39.9) 05/31/2018 DX:Obesity (BMI 30-39.9) Cervical stenosis of spinal canal 05/31/2018 DX:Cervical stenosis of spinal canal; COMMENT: S/p MRI 09/2017 Osteopenia 09/15/2016 DX:Osteopenia; C OMMENT: Bone Density 06/2018 Osteoarthritis of right knee 11/19/2014 DX: Osteoarthritis of right knee; COMMENT: arthroscopy 09/16, CS injections with Dr. Covarrubias S/p PT does not want surgery at this time Peripheral neuropathy 01/30/2019 DX:Periphe ral neuropathy; COMMENT: Decreased sensation on monofilament testing Ureteral stone 10/02/2021 DX:Ureteral ston e; COMMENT: 09/23 left proximal ureteral stone Family History Medical History Relation Name Comments Bladder Cancer Father's side aunt Relation Name Status Comments Father's side Social History Tobacco Use Types Packs/Day Years Used Date Smoking Tobacco: Former Cigarettes 0.5 30.3 0 1971 - 08/02/2001 Smokeless Tobacco: Never Alcohol Use Standard Drinks/Week Comments No 0 (1 standard drink = 0.6 oz pur e alcohol) Comments Unknown Sex and Gender Information Value Date Recorded Sex Assigned at Not on file Legal Sex Female 1:12 AM EST Gender Identity Not on file Sexual Orientation Not on file Obstetrics History Last Filed Vital Signs Vital Sign Reading Time Taken Comments Blood Pressure 107/55 06/29/2023 10:59 AM EST Pulse 74 06/29/2023 10:59 AM EST Temperature - - Respiratory Rate - - Oxygen Saturation - - Inhaled Oxygen Concentration - - Weight 85.7 kg (189 lb) 06/29/2023 10:59 AM EST Height 160 cm (5' 3 ) 06/29/2023 10:59 AM EST Body Mass Index 33.48 06/29/2023 10:59 AM EST Plan of Treatment Health Maintenance Due Date Last Done Comments Diabetes: Annual GFR (Glomerular Filtration Rate) 1955 Diabetes: Annual Foot Exam 1963 Diabetes: Annual Retina Eye Exam 1963 RSV Immunization Adult Patients (1 - Risk 60-74 years 1-dose series) 2013 Zoster Vaccines (2 of 2) 09/03/2014 07/09/2014, 09/02 Cholesterol Screening (Lipid Panel) 07/09/2022 Colorectal Cancer Screening: Colonoscopy 07/09/2022 Depression Screening 07/09/2022 Diabetes: Annual Urine Albumin-Creatinine Ratio (uACR) 07/09/2022 Diabetes: Blood Sugar Control Test (HGBA1C) 07/09/2022 Falls Risk Assessment 07/09/2022 Hepatitis C Screening 07/09/2022 Hypertension/CHF/CAD Annual BMP Blood Test 07/09/2022 Medicare Annual Wellness Visit 07/09/2022 Social Influencers of Health Screening 07/09/2022 COVID-19 Vaccine ( season) 2024 05/28/2021, 11/21/2020, 10/24/2020 Breast Cancer Screening 10/27/2024 10/28/19 23, 10/23/2021, 09/30/2020, Additional history exists DTaP,Tdap,and Td Vaccines (3 - Td or Tdap) 11/03/2026 11/03/2016, 09/18/2011 Osteoporosis Screening (Bone Density Screening) 05/28/2031 05/28/2021, 06/06/2018 Varicella Vaccines Aged Out 09/18/2011 No longer eligible based on patient's age to complete this topic Pneumococcal Vaccine: 50+ Years Completed 02/01/2023, 05/31/2018, 08/16/2013 Influenza Vaccine Completed 05/03/2024, , 05/04/2022, Additional history exists HIB Vaccines Aged Out No longer eligi ble based on patient's age to complete this topic HPV Vaccines Aged Out No longer eligi ble based on patient's age to complete this topic Hepatitis A Vaccines Aged Out No long er eligible based on patient's age to complete this topic Hepatitis B Vaccines Aged Out No long er eligible based on patient's age to complete this topic IPV Vaccines Aged Out No longer eligi ble based on patient's age to complete this topic MMR Vaccines Aged Out No longer eligi ble based on patient's age to complete this topic Meningococcal ACWY Vaccine Aged Out N o longer eligible based on patient's age to complete this topic Meningococcal B Vaccine Aged Out No l onger eligible based on patient's age to complete this topic RSV Immunization Patients Under 20 months Aged Out No longer eligible based on patient's age to complete this topic Procedures Procedure Name Priority Date/Time Associated Diagnosis Comments [facility] SCREENING DIGITAL Routine 10/27/2022 1:18 PM EDT Encounter for screening mammogram for malignant neoplasm of breast DXA BONE DENSITY STUDY 1+ SITS AXIAL SKEL Routine 05/28/2021 1:18 PM EDT History of falling Polyneuropathy, unspecified Type 2 diabetes mellitus with other diabetic kidney complication ([facility] V24, [facility] V28) Proteinuria, unspecified terminal gauger (current) use of insulin ([facility] V24, [facility] V28) Type 2 diabetes mellitus with diabetic polyneuropathy ([facility] V24, [facility] V28) Type 2 diabetes mellitus with hyperglycemia ([facility] V24, [facility] V28) Obesity, unspecified Anxiety disorder, unspecified Depression, unspecified Encounter for general adult medical examination without abnormal findings from Last 3 Months or Most Recently Relevant to Health Maintenance Results * [facility] SCREENING DIGITAL (10/27/2022 1:18 PM EDT) Anatomical Region Laterality Modality Mammography 10/26/2022 1:42 PM EDT Narrative 10/27/2022 1:[address] [facility] Diagnostic Imaging Department [address] [place], [place] [id number] Patient: ??MARY CINTRON ?/Age/Sex: 1955 - 67 - F Unit#: ??[id number] ? Location/Status: ??SPDIMAM/REG CLI ? Mnemonic/Ordering Site: ??DIGSC/SPMAM Ordering Physician: ??AMANDA SANCHEZ Lona Screening Digital - 10/26/22 - 1409 INDICATION: SCREENING COMPARISON: [facility] mammograms dating back to ??11/05/2011 TECHNIQUE: CC and MLO views of the breasts were obtained, using full field digital mammography with 3D tomosynthesis views in the MLO projection. Computer aided detection with the Inspherion.2-H was employed. FINDINGS: The breasts are almost entirely composed of fat. Benign-appearing breast calcifications are present bilaterally including coarsening calcifications within the right upper outer quadrant. No suspicious masses, suspicious microcalcifications, or areas of architectural distortion are identified. ??There are no secondary signs of breast malignancy. IMPRESSION: ??No specific mammographic evidence of breast malignancy. Lack of an imaging correlate should not deter or delay biopsy of a clinically significant palpable finding. BI-RADS ??- Category 2 - Benign finding 3342F, 7025F Annual screening mammography is recommended. Patient entered into a reminder system with a target date for the next mammogram. ([id number] / [id number]) , ??[id number] Dictating Physician: ??CRISSY DAILY MD Electronically Signed by: ??CRISSY DAILY MD Dic Date/Time: ??10/27/22 1313 Sign date/Time: ??10/27/22 1318 Procedure Note Crissy Daily MD - 09/03/[address] [facility] Diagnostic Imaging Department [address] [place], [place] [id number] Patient: MARY CINTRON /Age/Sex: 1955 - 67 - F Unit#: [id number] Location/Status: SPDIMAM/REG CLI Mnemonic/Ordering Site: [facility] Ordering Physician: AMANDA SANCHEZ Lona Screening Digital - 10/26/22 - 1409 INDICATION: SCREENING COMPARISON: [facility] mammograms dating back to 11/05/2011 TECHNIQUE: CC and MLO views of the breasts were obtained, using full field digital mammography with 3D tomosynthesis views in the MLO projection. Computer aided detection with the Zen99 7.2-H was employed. FINDINGS: The breasts are almost entirely composed of fat. Benign-appearing breast calcifications are present bilaterally including coarsening calcifications within the right upper outer quadrant. No suspicious masses, suspicious microcalcifications, or areas ofarchitectural distortion are identified. There are no secondary signs of breastmalignancy. IMPRESSION: No specific mammographic evidence of breast malignancy. Lack of an imaging correlate should not deter or delay biopsy of aclinically significant palpable finding. BI-RADS - Category 2 - Benign finding 3342F, 7025F Annual screening mammography is recommended. Patient entered into a reminder system with a target date for the next mammogram. [id number] / [id number]) , [id number] Dictating Physician: CRISSY DAILY MD Electronically Signed by: CRISSY DAILY MD Dic Date/Time: 10/27/22 1310 Sign date/Time: 10/27/22 7205 us Amnada Sanchez MD IMG BI PROCEDURES Final Result * DXA BONE DENSITY STUDY 1+ SITS AXIAL SKEL (05/28/2021 1:18 PM EDT) Anatomical Region Laterality Modality Bone Densitometr y 09/05/2020 4:36 PM EST Narrative 05/28/2021 3:22 PM EDT BONE DENSITY ? Lumbar Spine T-score is -1.4 ?? (SD relative to 20-29 y/o adult) Z-score is +0.5 ??(SD relative to age matched peers) This is consistent with osteopenia by criteria defined by the WHO. Left Hip T-score is -2.8 Z-score is -1.3 This is consistent with osteoporosis by criteria defined by the WHO. Comparison exam(s): significant decrease in bone density of ??hip when compared to most recent bone density examination ?? Confidence level is +/-95%. Impression: Based on the World Health Organization criteria, Mary Cintron should be classified as having osteoporosis. The [facility] Department of Internal Medicine recommends using National Osteoporosis Foundation (NOF) guidelines in treatment decisions related to osteoporosis. NOF guidelines suggest considering treatment for postmenopausal women and men aged 50 or older presenting with the following: History of hip or vertebral fracture. T-score less than or equal to -2.5 (DXA) at the femoral neck, total hip, or spine, after appropriate evaluation to exclude secondary causes. Low bone mass (T-score between -1.0 and -2.5 at the femoral neck or spine) AND a 10-year probability of a hip fracture greater than or equal to 3% OR a 10-year probability of a major osteoporosis-related fracture greater than or equal to 20% based on the [place]-adapted WHO algorithm Please note that all treatment decisions require clinical judgment and consideration of individual patient factors, including patient preferences, co-morbidities, previous drug use, risk factors not captured in the FRAX model (e.g., frailty, falls, vitamin D deficiency, increased bone turnover, interval significant decline in bone density) and possible under- or over-estimation of fracture risk by FRAX. Procedure Note Yefri Gregg MD - 07/21/2022 BONE DENSITY Lumbar Spine T-score is -1.4 (SD relative to 20-29 y/o adult) Z-score is +0.5 (SD relative to age matched peers) This is consistent with osteopenia by criteria defined by the WHO. Left Hip T-score is -2.8 Z-score is -1.3 This is consistent with osteoporosis by criteria defined by the WHO. Comparison exam(s): significant decrease in bone density of hip whencompared to most recent bone density examination Confidence level is +/-95%. Impression: Based on the World Health Organization criteria, Mary Cintron should beclassified as having osteoporosis. The [facility] Department of Internal Medicine recommendsusing National Osteoporosis Foundation (NOF) guidelines in treatmentdecisions related to osteoporosis. NOF guidelines suggest consideringtreatment for postmenopausal women and men aged 50 or older presentingwith the following: History of hip or vertebral fracture. T-score less than or equal to -2.5 (DXA) at the femoral neck, total hip,or spine, after appropriate evaluation to exclude secondary causes. Low bone mass (T-score between -1.0 and -2.5 at the femoral neck or spine)AND a 10-year probability of a hip fracture greater than or equal to 3% ORa 10-year probability of a major osteoporosis-related fracture greaterthan or equal to 20% based on the [place]-adapted WHO algorithm Please note that all treatment decisions require clinical judgment andconsideration of individual patient factors, including patientpreferences, co-morbidities, previous drug use, risk factors not capturedin the FRAX model (e.g., frailty, falls, vitamin D deficiency, increasedbone turnover, interval significant decline in bone density) and possibleunder- or over-estimation of fracture risk by FRAX. Julisas Junior MD IM DXA PROCEDURES Final Res ult from Last 3 Months or Most Recently Relevant to Health Maintenance Care Teams Commercial Banker Relationship Specialty Start Date End Date Julissa Junior MD PCP - General 06/29/23
--- OUTSIDE RECORDS SUMMARY | 2024-12-12 11:19 | XMS_ITS | Encounter Summary ---
Author Organization [facility] Address [address] [place] [address] Care Team Providers Care Floor Finisher Helper Name Role Phone Julissa Junior MD Primary Care Provider Unavail able Flor Painter MD Primary Care Provider Amanda Lemon MD Primary Care Prov ider [facility], Pcp Primary Care Provider Unavailabl Julissa Junior MD Primary Care Provider Unavail able Encounter Details Date Type Department Care Team Description 06/06/2018 Orders Only Radiology - [address] [id number] Julissa Junior MD Social History Tobacco Use [...] on filedocumented in this encounter Care Teams Floor Finisher Helper Relationship Specialty Start Date End Date Julissa Junior MD PCP - General Internal Medicine 09/15/16 09/08/21 Flor Painter MD [address] [place] [id number] PCP - General Internal Medicine 09/09/21 05/26/22 Amanda Lemon MD [address] [place] [address] PCP - General Internal Medicine 05/27/22 05/24/23 [facility], [place] [address] PCP - General Internal Medicine 05/25/23 06/28/23 Julissa Junior MD [address] [place] [address] PCP - General Internal Medicine 06/29/23 documented as of this encounter
== END 2024-12-12 10:41 | disposition home or self-care (01) ==
LOC: HO.HOS 10:13
PROVIDERS: PCP Internal Medicine; Visit Provider Orthopaedic Surgery
DX: M17.11 Unilateral primary osteoarthritis, right knee (principal); M75.42 Impingement syndrome of left shoulder
CPT/HCPCS: 99213; G2211

== ENCOUNTER → 2024-12-12 10:13 | Outpatient (BNVA) | payer MEDICARE, MEDICAID, SELFPAY | PROVIDERS: PCP Internal Medicine; Visit Provider Orthopaedic Surgery | DX: M17.11 Unilateral primary osteoarthritis, right knee (principal); M75.42 Impingement syndrome of left shoulder | CPT/HCPCS: 99212 ==

== ENCOUNTER 2025-02-01 10:52 | Outpatient (AMB) | payer MEDICARE, MEDICAID, SELFPAY ==
--- NOTE | 2025-02-01 10:55 | MHC.OFFVIS ---
Vital Signs 02/01/25 10:56 Height 5 ft 3 in Weight 180 lb BMI 31.9 Intake Visit Reasons: Left shoulder pain Intake Note: Mary is a 69 year old female who presents with progressively worsening left shoulder pain. The patient states that she injured her left shoulder several years ago while lifting a heavy object. She underwent left shoulder surgery at [facility] several years ago. The patient got temporary relief from that procedure. She has done physical therapy which aggravated her symptoms. She reports weakness when lifting her left hand above shoulder height. She has had cortisone injections given into her left shoulder. Most recent injection gave her minimal relief. She has tried Tylenol and anti-inflammatory medicines which gave her minimal relief. She did have left shoulder surgery scheduled but the procedure was canceled because her blood glucose level was high. Behavioral Health Director Required: No Allergies oxycodone (From Percocet) Allergy (Intermediate, Verified 02/01/25 10:56) itchy latex Allergy (Unknown, Verified 02/01/25 10:56) Unknown penicillin V Allergy (Unknown, Verified 02/01/25 10:56) unknown pollen extracts Allergy (Unknown, Verified 02/01/25 10:56) Unknown Iodinated Contrast Media (Contrast Dye) Allergy (Verified 02/01/25 10:56) Itching aspirin Adverse Reaction (Intermediate, Verified 02/01/25 10:56) Gastrointestinal Upset Medication List - Last Reconciled 02/01/25 by Silver Peters MD insulin glargine (Lantus Solostar U-100 Insulin) 22 units subcut BEDTIME lisinopril 2.5 mg PO DAILY loratadine (Allergy Relief (loratadine)) 10 mg PO DAILY omeprazole 40 mg PO DAILY pregabalin (Lyrica) 25 mg PO DAILY PRN tirzepatide (Mounjaro) 2.5 mg subcut topiramate XR 25 mg PO DAILY PRN venlafaxine ER 37.5 mg PO DAILY venlafaxine ER 75 mg PO DAILY [facility] Medical History Back pain History of headache Depression Habitual snoring Tachycardia HTN (hypertension) Incomplete right bundle branch block Abnormal EKG Atherosclerosis Adenoma of left adrenal gland Pulmonary nodule History of nephrolithiasis Neuropathy Lumbar spondylosis Lipoma of chest wall Calcifying tendinitis of left shoulder WILL (obstructive sleep apnea) Osteopenia Osteoarthritis Migraine Cervical spinal stenosis Anxiety and depression Diabetes GERD (gastroesophageal reflux disease) Elevated cholesterol Surgical History History of esophagogastroduodenoscopy (EGD) H/O colonoscopy Hx of cataract extraction Hx of cholecystectomy Hx of appendectomy Hx of hysterectomy Hx of shoulder surgery Hx of arthroscopy of right knee Social History Are you a primary pet care worker to a significant other at home: No Do you presently have visiting nurse or other home services: Yes ([employer]) Alcohol intake: never Patient Tobacco Use Status: Never used Tobacco Current occupational status: unemployed Physical Exam Vital Signs: BMI result Body Mass Index 31.9 Const Other: Well-nourished well-developed very friendly female awake alert and oriented x3 in no acute distress Extrem Other: Left shoulder examination shows slightly decreased range of motion when compared to her right shoulder, 4+ out of 5 strength with supraspinatus testing, positive impingement signs, tenderness over her acromioclavicular joint, no instability Results Reviewed Results Reviewed: MRI of the patient's left shoulder show severe acromioclavicular joint narrowing, a type 2 acromion, signal change within the supraspinatus tendon due to rotator cuff tendinosis versus a small recurrent rotator cuff tear Assessment & Plan Assessment & Plan (1) Left shoulder pain: Code(s): M25.512 - Pain in left shoulder Category: Medical Plan Ms. Saida Pratt presents with recurrent left shoulder pain due to impingement syndrome, acromioclavicular joint arthritis and rotator cuff tendinosis versus a small recurrent tear. I had a lengthy discussion with the patient regarding the treatment options. At this point she has failed continued non operative treatments. The risks and benefits of left shoulder surgery were discussed at length with the patient. The patient wishes to proceed with surgery. Surgery will involve left shoulder arthroscopic distal clavicle excision, left shoulder arthroscopic acromioplasty and possible left shoulder revision rotator cuff repair showed a full-thickness tear be found at the time of her surgery. The patient will be given a prescription for pain medicine at the time of her surgery. She will follow-up as instructed. Feel free to call me at any time should questions regarding her orthopedic management arise. I spent 22 minutes in reviewing the patient's records and imaging studies, seeing the patient and documenting in the medical record. Coding Level of Care Code Est Pt Level 3 (17185) Complex EM visit Add On G2211 Diagnoses Left shoulder pain M25.512
[2025-02-01 10:56] VITALS: BMI 31.9
--- OUTSIDE RECORDS SUMMARY | 2025-02-01 11:42 | XMS_ITS | Clinical Summary ---
Author Organization [facility] Address [address] [place] [address] Care Team Providers Care Steel Die Printer Name Role Phone Amanda Lemon MD Primary [...] 11/19/2014 Overview: Overview: Occasional CS shots at [facility] with Dr. Covarrubias Osteoarthritis of right [...] or PCV20) 05/31/2019 05/31/2018, 08/16/2013 Influenza Vaccine (Season Ended) 2025 06/04/2021, 06/04/2021, 05/31/2018, Additional history exists DTap / Tdap / Td (2 - Td or Tdap) 11/03/2026 11/03/2016 Hepatitis B Vaccines Aged Out No long er eligible based on patient's age to complete this topic RSV Ped < 20 months Aged Out No longe r eligible based on patient's age to complete this topic Care Teams Steel Die Printer Relationship Specialty Start Date End Date Amanda Lemon MD [address] [place] [address] PCP - General Internal Medicine 08/14/22
--- OUTSIDE RECORDS SUMMARY | 2025-02-01 11:42 | XMS_ITS ---
Author Name [facility] Organization Unknown History of Medication Use Medication Directions Dispensed Refills Start Date End Date Stat us bupivacaine HCl 0.5 % (5 mg/mL) injection solution Take 2 mL by injection route. 06/30/2023 active celecoxib 200 mg capsule TAKE 1 CAPSULE BY MOUTH 2 TIMES DAILY NEEDED FOR PAIN. active famotidine 20 mg tablet PLEASE SEE ATTACHED FOR DETAILED DIRECTIONS active Lantus Solostar U-100 Insulin 100 unit/mL (3 mL) subcutaneous pen INJECT 22 UNITS INTO THE SKIN AT BEDTIME. active lisinopril 2.5 mg tablet TAKE 1 TABLET BY MOUTH EVERY DAY active loratadine 10 mg tablet TAKE 1 TABLET BY MOUTH EVERY DAY active Ozempic 1 mg/dose (4 mg/3 mL) subcutaneous pen injector INJECT SUBCUTANEOUSLY 1MG INTO THE SKIN ONCE A WEEK active topiramate 25 mg tablet TAKE 1 TABLET BY MOUTH EVERY DAY active venlafaxine ER 37.5 mg capsule,extended release 24 hr TAKE 1 CAPSULE BY MOUTH ONCE A DAY WITH 75MG CAPSULE FOR TOTAL ZGNT=510.5MG active venlafaxine ER 75 mg capsule,extended release 24 hr TAKE 1 CAPSULE BY MOUTH ONCE A DAY WITH 37.5 MG CAPSULE FOR TOTAL DOSE = 112.5 MG active Allergies Allergen Reaction Severity Comment Documented Date Source Statu s ASPIRIN ENS_AONECT LATEX ENS_AONECT PENICILLINS ENS_AONECT PERCOCET ENS_AONECT Problems Problem Status Onset Date Problem Type Date of Resoluti on Source Osteoarthritis of joint of left shoulder region active 2023-03-15 ProblemAct ENS_ [facility]ONECT Tendinitis of left rotator cuff active 2023-06-30 ProblemAct [facility] Diabetes mellitus active 2023-03-15 ProblemAct [facility] Adhesive capsulitis of left shoulder active 2023-06-30 ProblemAct [facility] Encounters Encounter Type Encounter Reason Primary Diagnosis Location Date Ambulatory [facility] 06/30/2023 Ambulatory [facility] 06/17/2023 Ambulatory [facility] 03/19/2023 Ambulatory [facility] 03/19/2023 Ambulatory [facility] 03/15/2023 Ambulatory [facility] 03/15/2023 Ambulatory [facility] 03/10/2023
--- OUTSIDE RECORDS SUMMARY | 2025-02-01 11:43 | XMS_ITS | Data Portability ---
Author Organization [place] [facility] Anastasiia Barahona A[facility] Address [address] [place] [address] Care Team Providers Care Marine Architect Name Role Phone AFSANEH MORENO Referring Provider [...] to use ibuprofen or Tylenol with appropriate llnl-mmb-rbpoakv dosing and GI precautions. Icing protocol reviewed. [...] findings at length with the patient today. We discussed the nature and etiology of this problem along with current treatment options. We discussed the expected course and outcomes and what to expect. We also discussed risks and benefits. All of their questions were answered today, and there was exhibited understanding and comprehension of all that was discussed. Time Spent: 10 minutes were spent reviewing previous imaging and charting. 10 minutes were spent obtaining patient history. 5 minutes were spent on physical exam. 5minutes were spent explaining diagnosis and assessment. Today's [...] XR, shoulder, 2 or more view 2022 [email or web address] 2 [facility], [address], [place], [address], 15:01:50 Medication Orders Kenalog 40 mg/mL suspension for injection 2022 023 [id number], [address] [place] [address], [address], 14:33:11 lidocaine (PF) 100 mg/5 mL (2 %) injection syringe 2022 023 [id number], [address] [place] [address], [address], 14:33:11 bupivacaine HCl 0.5 % (5 mg/mL) injection solution 2022 023 [id number], [address] [place] [address], [address], 14:33:11 Patient TargetsNo targets recorded. Patient Instructions Encounter Date Encounter Id Patient Instructions Last Modified By Organization Details Last Modified Time 03/15/2023 [id number] views of the left shoulder were obtained on 03/15/2023 in the [place] office. The views are limited by body [...] Hill MD Not available 03/24/2023 22:49:54 06/30/2023 [id number] You have been provided with a cortisone [...] following the injection. This is called a flare . To help minimize the chances of [...] Address Organization Details Recorded Time Diabetes mellitus 68374348 Active 2022 Gabino Hill MD [address], [place], [address], [place] [facility], [facility] 3 14:47:41 Osteoarthri tis of joint of left shoulder region 5428863239309 08 Active 2022 Gabino Hill MD [address], [place], [address], [place] [facility] 3 14:47:43 Tendinitis of left rotator cuff 7088141341635 9101 Active 2022 HANNAH LAGUNAS PA-C [address], [place], [address], [place] [facility], [facility] 3 13:53:42 Adhesive capsulitis of left shoulder 4502583963696 07 Active 2022 HANNAH LAGUNAS PA-C [address], [place], [address], [place] [facility], [facility] 3 13:53:55 Problem Notes None recorded. Procedures Surgical History Date Name Laterality Status Provider Name and Address Organization Details Recorded Time 3 Shoulder Joint/Bursa Asp & Inj completed HANNAH LAGUNAS PA-C [address], [place], [address], [place] [facility] 06/30/2023 13:53:24 Shoulder Surgery completed Yue Landaverde [facility], P 03/15/2023 14:32:49 Imaging Results None recorded. Procedure Notes None recorded. Medical Equipment None Reported. Allergies Allergen ID Allergen Name Allergen Category Reaction Reaction Severity Criticality Documentation Date Start Date Code Code System Note Provider Name and Address Organization Details Recorded Time 56819 acetamino phen / oxycodone medicatio n Not available Not available Not available 06/30/2023 29531 3 RxNorm Shelby Dennis [facility] 13:29:42 7147 Product containin g penicilli n (product) medicatio n Not available Not available Not available 03/15/2023 45754 8001 SNOMED Yue Landaverde [facility], [facility] 14:31:22 7148 aspirin medicatio n Not available Not available Not available 03/15/2023 1191 RxNorm Yue Landaverde [facility], [facility] 14:31:31 7149 latex environme nt,medica tion Not available Not available Not available 03/15/2023 59631 91 RxNorm Yue Landaverde null, [place] [facility] 3 14:31:36 Medications Name Sig Start Date Stop Date Status Note LastModified by Organization Details LastModified Time celecoxib 200 mg capsule TAKE 1 CAPSULE BY MOUTH 2 TIMES DAILY NEEDED FOR PAIN. active Not Available Not Available No t Available venlafaxine ER 37.5 mg capsule,ext ended release 24 hr TAKE 1 CAPSULE BY MOUTH ONCE A DAY WITH 75MG CAPSULE FOR TOTAL RGWY=627. 5MG active Not Available Not Available No [...] 2nd Gen Pen Needle 32 gauge x 5/32 USE TO INJECT INSULIN FOUR TIMES DAILY [...] Not Available Vitals Date Recorded Body height Body mass index (BMI) Body weight Provider Name and Address Organization Details Last Updated DateTime 03/15/2023 160.02 cm 38.8 kg/m2 57113.[address] [place] [facility] 03/15/2023 14:31:45 Date Recorded Body height Provider Name an d Address Organization Details Last Updated DateTime 06/30/2023 160.[address] [place] [facility] 06/30/2023 13:30:26 Social History None recorded. Functional Status Question Answer Note LastModified by Organizat ion Details LastModified Time Do you use any illicit or recreational drugs? No [email or web address] Information not available 03/15/2023 What is your level of alcohol consumption? None [email or web address] Information not available 03/15/2023 Mental Status None recorded. Family History Relationship Description Onset Age of this Age Resolved Age Notes LastModified by Organization Details LastModified Time Father Diabetes mellitus [email or web address] Not available 2022 14:32:33 Medical History Condition Response Gout Y Diabetes Y Rheumatoid Arthritis Y Gynecological HistoryNo gynecological history recorded. Obstetrics History GPAL:G 0 P 0 0 0 0 Past Encounters Encounter ID Performer Location Encounter Start Date Encounter Closed Date Diagnosis/Indication Diagnosis SNOMED-CT Code Diagnosis ICD10 Code Diagnosis Note [id number] ELSY HALL [facility] [address] [facility] [address] [place] [address] 03/15/2023 14:16:34 03/15/2023 15:01:50 Pain of left shoulder joint 1932073329 3037014 M25.512 Osteoarthr itis of joint of left shoulder region 8818834735 87306 M19.012 Tendinitis of rotator cuff tendon 364280699 M67.819 [id number] ELSY HERNANDEZ [facility] [address] [facility] [address] [place] [address] 06/30/2023 13:15:41 06/30/2023 13:47:43 Tendinitis of left rotator cuff 6617613828 6782055 M67.814 Adhesive c apsulitis of left shoulder 2421049743 73805 M75.02 Health Concerns Section Related Observation LastModified by Organization Detai ls LastModified Time None Recorded Concern Status LastModified by Organization Details LastModified Time None Recorded Advance Directives Directive None Recorded Payers Insurance Date Sequence Insurance Name Policy Number Policy Anton Covered Member ID Anton Member ID Guarantor Name 07/14/2023 2 [place] [facility] Mary Pratt [id number] Mary Pratt 09/09/2023 1 MEDICARE B-[place]: [employer] Mary Pratt [id number] Mary Pratt Notes Date Note Type Note Provider Name [...] A1c was above 9. WILLIS BANERJEE PA-C [address] [place] [address], [address], [place] [facility] 03/24/2023 22:50:44 06/30/2023 text/html Assessment & Yas n: Prior note from Soila [id number] female with history of rotator cuff repair [...] to use ibuprofen or Tylenol with appropriate fozn-xwg-gecnlwt dosing and GI precautions. Icing protocol reviewed. Advised she can continue activity as tolerated and should avoid immobilization of the shoulder to avoid developing a capsular pattern. Questions invited and answered. Patient and her verbalized understanding and agreement with plan.pain of left shoulder joint Order xr shoulder, 2 or more view, [id number] of joint of left shoulder regiontendinitis of [...] She is well controlled. HANNAH LAGUNAS PA-C [address] [place] [address],[place] [address], [place], [address], [place] [facility] 06/30/2023 13:58:23 OBGyn Episode No OBEpisode recorded.
== END 2025-02-01 11:07 | disposition home or self-care (01) ==
LOC: HO.HOS 10:53
PROVIDERS: PCP Internal Medicine; Visit Provider Orthopaedic Surgery
DX: M25.512 Pain in left shoulder (principal)
CPT/HCPCS: 99214; G2211

== ENCOUNTER → 2025-02-01 10:52 | Outpatient (BNVA) | payer MEDICARE, MEDICAID, SELFPAY | PROVIDERS: PCP Internal Medicine; Visit Provider Orthopaedic Surgery | DX: M25.512 Pain in left shoulder (principal) | CPT/HCPCS: 99212 ==

== ENCOUNTER 2025-02-09 06:18 | Day surgery (SDC) | payer MEDICARE, MEDICAID, SELFPAY ==
--- OUTSIDE RECORDS SUMMARY | 2024-12-20 13:29 | XMS_ITS | Clinical Summary ---
Author Organization [facility] Address [address] [place] [address] Care Team Providers Care Battery Container Tester Name Role Phone Julissa Junior MD Primary Care Provider Surgical History Surgery Date Site/Laterality Comments APPENDECTOMY PROCEDURE: HISTORICAL APPENDECTOMY CHOLECYSTECTOMY PROCEDURE: HISTORICAL CHOLECYSTECTOMY KNEE ARTHROSCOPY W/ MENISCAL REPAIR 09/20/2014 Right PROCEDURE: [place] ARTHROSCOPY KNEE W/MENISCUS RPR MEDIAL/LATERAL COLONOSCOPY 11/30/2016 PROCEDURE: HISTORICAL COLONOSCOPY; COMMENT: Nine polyps COLONOSCOPY 04/02/2021 PROCEDURE: HISTORICAL COLONOSCOPY; COMMENT: 8 polyps removed Medical History Medical History Date Comments Migraine 10/02/2014 DX:Migraine Osteoarthritis of lumbar spine 11/19/2014 D X:Osteoarthritis of lumbar spine; COMMENT: Occasional CS shots at [facility] with Dr. Covarrubias GERD (gastroesophageal reflu [...] 06/29/2023 10:59 AM EST Plan of Treatment Upcoming Encounters Date Type Department Care Team (Late st Contact Info) Description 12/26/2024 1:00 PM EDT [facility]oint[facility] [address] [phone] Health Maintenance Due Date Last Done Comments [...] 05/28/2021, 11/21/2020, 10/24/2020 Breast Cancer Screening 10/27/2024 10/28/19, 10/23/2021, 09/30/2020, Additional history exists DTaP,Tdap,and Td [...] Procedure Name Priority Date/Time Associated Diagnosis Comments [facility] SCREENING DIGITAL Routine 10/27/2022 1:18 PM EDT Encounter for screening mammogram for malignant neoplasm of breast DXA BONE DENSITY STUDY 1+ SITS AXIAL SKEL Routine 05/28/2021 1:18 PM EDT History of falling Polyneuropathy, unspecified Type 2 diabetes mellitus with other diabetic kidney complication ([facility] V24, [facility] V28) Proteinuria, unspecified computer terminal operator (current) use of insulin ([facility] V24, [facility] V28) Type 2 diabetes mellitus with diabetic polyneuropathy ([facility] V24, [facility] V28) Type 2 diabetes mellitus with hyperglycemia ([facility] V24, [facility] V28) Obesity, unspecified Anxiety disorder, unspecified Depression, unspecified Encounter for general adult medical examination without abnormal findings from Last 3 Months or Most Recently Relevant to Health Maintenance Results * [facility] SCREENING DIGITAL (10/27/2022 1:18 PM EDT) Anatomical Region Laterality Modality Mammography 10/26/2022 1:42 PM EDT Narrative 10/27/2022 1:18 PM EDT [facility] Diagnostic Imaging Department [address] [place] [id number] Patient: ??MOYET,MARY ?/Age/Sex: 1955 - 67 - F Unit#: ??[id number] ? Location/Status: ??SPDIMAM/REG CLI ? Mnemonic/Ordering Site: ??DIGSC/SPMAM Ordering Physician: ??ROZAMANDA WHALEN Lona Screening Digital - 10/26/22 - 1409 INDICATION: SCREENING COMPARISON: [facility] mammograms dating back to ??11/05/2011 TECHNIQUE: CC and MLO views of the breasts were obtained, using full field digital mammography with 3D tomosynthesis views in the MLO projection. Computer aided detection with the [employer] [place] 7.2-H was employed. FINDINGS: The breasts are [...] date for the next mammogram. (G0202 / [id number]) , ??[id number] Dictating Physician: ??CRISSY DAILY MD Electronically Signed by: ??CRISSY DAILY MD Dic Date/Time: ??10/27/22 1313 Sign date/Time: ??10/27/22 1318 Procedure Note Crissy Daily MD - 09/03/2023 [facility] Diagnostic Imaging Department [address] [place] [address] Patient: MARY CINTRON /Age/Sex: 1955 - 67 - F Unit#: [id number] Location/Status: SPDIMAM/REG CLI Mnemonic/Ordering Site: [facility] Ordering Physician: AMANDA SANCHEZ Lona Screening Digital - 10/26/22 - 1409 INDICATION: SCREENING COMPARISON: [facility] mammograms dating back to 11/05/2011 TECHNIQUE: CC and MLO views of the breasts were obtained, using full field digital mammography with 3D tomosynthesis views in the MLO projection. Computer aided detection with the [employer] 7.2-H was employed. FINDINGS: The breasts are [...] a target date for the next mammogram. [id number] / [id number]) , [id number] Dictating Physician: CRISSY DAILY MD Electronically Signed by: CRISSY DAILY MD Dic Date/Time: 10/27/22 1313 Sign date/Time: 10/27/22 1318 us Amanda Sanchez MD IMG BI PROCEDURES Final Result * DXA BONE DENSITY STUDY 1+ SALINA MATTA (05/28/2021 1:18 PM EDT) Anatomical Region Laterality [...] should be classified as having osteoporosis. The [facility] Department of Internal Medicine recommends using National [...] Cintron should beclassified as having osteoporosis. The [facility] Department of Internal Medicine recommendsusing National Osteoporosis [...] or over-estimation of fracture risk by FRAX. Julissa Junior MD IM DXA PROCEDURES Final Res ult from Last 3 Months or Most Recently Relevant to Health Maintenance Care Teams Battery Container Tester Relationship Specialty Start Date End Date Julissa Junior MD PCP - General 06/29/23
--- OUTSIDE RECORDS SUMMARY | 2024-12-20 13:29 | XMS_ITS | Data Portability ---
Author Organization [place] [facility] Anastasiia Barahona AONE [place] Address [address] [facility] [address] [place] [address] Care Team Providers Care Screw Driver Operator Name Role Phone AFSANEH MORENO Referring Provider Assessment Encounter Date Assessment Date Assessment LastModified by Organization Details LastModified Time 03/15/2023 03/15/2023 67-year-old female with history of rotator cuff repair presented to the office complaining of left shoulder pain. Her pain is likely multifactorial in nature. Her history and exam are consistent with rotator cuff tendinitis as well as osteoarthritis of the shoulder. Cannot definitively exclude a retear of her rotator cuff however we will defer any discussion of surgical intervention as I do not think she would be a good candidate at this time. Additionally, there is perhaps radiographic evidence of an old healed tuberosity fracture. I suggest we begin with conservative management. She will trial a course of physical therapy. She was given a prescription for this today. We discussed the possibility for a steroid injection if her A1c is improved after she follows up with her PCP. She will call to follow up as needed. She can continue to use ibuprofen or Tylenol with appropriate wivs-ulm-xnzlshj dosing and GI precautions. Icing protocol reviewed. Advised she can continue activity as tolerated and should avoid immobilization of the shoulder to avoid developing a capsular pattern. Questions invited and answered. Patient and her verbalized understanding and agreement with plan. Not available 03/24/2023 22:50:21 06/30/2023 06/30/2023 68-year-old female ongoing left shoulder pain failed physical therapy has never had a cortisone injection. She is not looking for surgical intervention at this time or ongoing physical therapy she has a home exercise program. She opted for cortisone injection left shoulder today's visit. After the pros, cons, benefits and risk both inherent and unexpected including bump in blood glucose levels were discussed with the patient. She gave verbal consent for injection of the left shoulder. This was then carried out for which the patient tolerated the procedure well. Aftercare instructions were discussed in detail. I like to see her back for reassessment in 2 weeks time. Should she have any questions or concerns she should contact my office immediately. She states she understands how to adjust her blood sugars accordingly with her insulin she has had cortisone injections in other joints in the past and has not had a significant issue. That being said she will call her diabetic treating provider if there is a significant bump in her blood sugar levels. Patient was seen and evaluated by Hannah Lagunas PA-C in indirect conjuction with Documenting Provider: Gabino Hill MD . He/She agrees with history, physical examination, tests/diagnostic imaging, and treatment plan. Additional treatment plan discussed with the patient (only initiated if in boldface font) otherwise not applicable. Treatment may include the following; - Provider focused nonsteroidal anti-inflammatory regimen (discussed were the pros, cons, benefits and risks as well as any black box warnings) in patients over 60 years old they should be very cautious in taking these medications due to potential decreased kidney function and or elevated blood pressure. - Analgesic pain medication for pain suppression (discussed were the pros, cons, benefits and risks as well as any black box warnings) - The use of topical pain relieving medication were discussed - The use of ice to decrease inflammation and pain - The use of assistive ambulatory devices for ambulation and fall prevention - Formal specific guided physical therapy program I reviewed my findings at length with the patient today. ? ? ?We discussed the nature and etiology of this problem along with current treatment options. We discussed the expected course and outcomes and what to expect. We also discussed risks and benefits. ? ? ? All of their questions were answered today, and there was exhibited understanding and comprehension of all that was discussed. Time Spent: 10 minutes were spent reviewing previous imaging and charting. ? ? ?10 minutes were spent obtaining patient history. ? ? ?5 minutes were spent on physical exam. ? ? ?5? ? ?minutes were spent explaining diagnosis and assessment. Today's documentation was made using voice recognition software. This note may contain grammatical errors secondary to the software. Not available 06/30/2023 13:55:14 Plan of Treatment Reminders Order Date Submit Date Provider Last Modified By Organization Details Last Modified Time Details Appointments None recorded. Lab None recorded. Referral None recorded. Procedures None recorded. Surgeries None recorded. Imaging XR, shoulder, 2 or more view 2022 [email or web address] 2 [facility], [address], [place], [address], 15:01:50 Medication Orders Kenalog 40 mg/mL suspension for injection [id number], [address] [place] [address], [address], 3 14:33:11 lidocaine (PF) 100 mg/5 mL (2 %) injection syringe [id number], [address] [place] [address], [address], 3 14:33:11 bupivacaine HCl 0.5 % (5 mg/mL) injection solution [address]/[id number], [address] [place] [address], [address], 3 14:33:11 Patient TargetsNo targets recorded. Patient Instructions Encounter Date Encounter Id Patient Instructions Last Modified By Organization Details Last Modified Time 03/15/2023 [id number] views of the left shoulder were obtained on 03/15/2023 in the [place] office. The views are limited by body habitus. There may be mild narrowing of the glenohumeral joint space on the axillary view. The AP view is suggestive of slight pseudosubluxation. There is irregularity at the greater tuberosity with nonspecific calcification at the greater tuberosity which may represent an old healed tuberosity fracture. This does not have the typical appearance of calcific tendinitis as it is completely adherent to the lateral aspect of the tuberosity. There are some cystic changes in the tuberosity more medially. There is a small inferior humeral osteophyte. Moderate degenerative changes at the AC joint. Generalized decreased bony mineralization. Type III acromion. Findings: Left shoulder x-rays are overall limited by body habitus. There mild to moderate degenerative changes at the glenohumeral joint. Cannot exclude an old healed greater tuberosity fracture. Interpreted by: Gabino Hill MD Not available 03/24/2023 22:49:54 06/30/2023 [id number] You have been provided with a cortisone injection in order to reduce the pain and inflammation that you are experiencing. The injection consists of two medications. Cortisone (an anti-inflammatory that will take 48-72 hours to take effect) and Lidocaine (a numbing agent that will last 2-3 hours). Please note that not everyone will have a lasting response following the injection. PATIENT INSTRUCTIONS Once the Lidocaine wears off, you may have an increase in your pain. I recommend icing the affected area for 20 minutes 3-4 times per day. It is recommended that you refrain from any high level activities using the joint or limb that was injected for approximately 24-48 hours. Normal day-to-day activities are generally not a problem. POSSIBLE SIDE EFFECTS Individuals with dark complexions may experience some skin discoloration locally at the site of the injection. There is the possibility of an increase in discomfort within 48 hours following the injection. This is called a ? f lare? . To help minimize the chances of this, please see the post-injection instructions above. There is a less than 1% chance of an infection. If you notice any signs of infection (redness, warmth, drainage, fever greater than 100 degrees) please call our office or contact us through the portal JAY[facility]N. Not available 06/30/2023 13:56:01 Reason for Referral None Reported. Problems Name Problem SNOMED Code Status Onset Date Resolution Date Notes Provider Name and Address Organization Details Recorded Time Diabetes mellitus 47962379 Active 2022 Gabino Hill MD [address] [facility] [address], [place], [address], [place] [facility], [facility] 3 14:47:41 Osteoarthri tis of joint of left shoulder region 1576594945403 08 Active 2022 Gabino Hill MD [address], [place], [address], [place] [facility], [facility] 3 14:47:43 Tendinitis of left rotator cuff 5969807578839 9101 Active 2022 HANNAH LAGUNAS PA-C [address], [place], [address], [place] [facility], [facility] 3 13:53:42 Adhesive capsulitis of left shoulder 8930714070296 07 Active 2022 HANNAH LAGUNAS PA-C [address], [place], [address], [place] [facility], [facility] 3 13:53:55 Problem Notes None recorded. Procedures Surgical History Date Name Laterality Status Provider Name and Address Organization Details Recorded Time 3 Shoulder Joint/Bursa Asp & Inj completed HANNAH LAGUNAS PA-C [address], [place], [address], [place] [facility], [facility] 06/30/2023 13:53:24 Shoulder Surgery completed Yue Fernandezdley [facility], P 03/15/2023 14:32:49 Imaging Results None recorded. Procedure Notes None recorded. Medical Equipment None Reported. Allergies Allergen ID Allergen Name Allergen Category Reaction Reaction Severity Criticality Documentation Date Start Date Code Code System Note Provider Name and Address Organization Details Recorded Time 88653 acetamino phen / oxycodone medicatio n Not available Not available Not available 06/30/2023 62957 3 RxNorm Shelby Dennis [facility], [facility] 13:29:42 7147 Product containin g penicilli n (product) medicatio n Not available Not available Not available 03/15/2023 74213 8001 SNOMED Yue Landaverde [facility] 3 14:31:22 7148 aspirin medicatio n Not available Not available Not available 03/15/2023 1191 RxNorm Yue Landaverde [facility], [facility] 3 14:31:31 7149 latex environme nt,medica tion Not available Not available Not available 03/15/2023 29232 91 RxNorm Yue Landaverde [facility], [place] [facility], [facility] 3 14:31:36 Medications Name Sig Start Date Stop Date Status Note LastModified by Organization Details LastModified Time celecoxib 200 mg capsule TAKE 1 CAPSULE BY MOUTH 2 TIMES DAILY NEEDED FOR PAIN. active Not Available Not Available No t Available venlafaxine ER 37.5 mg capsule,ext ended release 24 hr TAKE 1 CAPSULE BY MOUTH ONCE A DAY WITH 75MG CAPSULE FOR TOTAL TKIJ=390. 5MG active Not Available Not Available No t Available venlafaxine ER 75 mg capsule,ext ended release 24 hr TAKE 1 CAPSULE BY MOUTH ONCE A DAY WITH 37.5 MG CAPSULE FOR TOTAL DOSE = 112.5 MG active Not Available Not Available No t Available hydrocodone 5 mg-acetamin ophen 325 mg tablet TAKE 1 TABLET BY MOUTH EVERY 6 HOURS NEEDED FOR PAIN active Not Available Not Available No t Available bupivacaine HCl 0.5 % (5 mg/mL) injection solution Take 2 mL by injection route. 2022 active Not Available Not Available Not Avai lable topiramate 25 mg tablet TAKE 1 TABLET BY MOUTH EVERY DAY active Not Available Not Available No t Available omeprazole 40 mg capsule,del ayed release TAKE 1 CAPSULE BY MOUTH EVERY DAY active Not Available Not Available No t Available acetaminoph en 500 mg tablet TAKE 1 TABLET BY MOUTH EVERY 8 HOURS NEEDED FOR PAIN active Not Available Not Available No t Available Kenalog 40 mg/mL suspension for injection Take 1 mL by injection route. 2022 active Not Available Not Available Not Avai lable famotidine 20 mg tablet PLEASE SEE ATTACHED FOR DETAILED DIRECTION S active Not Available Not Available No t Available calcium 500 mg (as calcium carbonate 1,250 mg) tablet TAKE 1 TABLET BY MOUTH EVERY DAY active Not Available Not Available No t Available benzonatate 100 mg capsule TAKE 1 CAPSULE BY MOUTH 3 TIMES DAILY NEEDED FOR COUGH FOR UP TO 7 DAYS. NOT COVERED active Not Available Not Available No t Available venlafaxine 37.5 mg tablet PLEASE SEE ATTACHED FOR DETAILED DIRECTION S active Not Available Not Available No t Available methylpredn isolone 4 mg tablets in a dose pack TAKE 6 TABLETS ON DAY 1 DIRECTED ON PACKAGE AND DECREASE BY 1 TAB EACH DAY FOR A TOTAL OF 6 DAYS active Not Available Not Available No t Available cefdinir 300 mg capsule TAKE 1 CAPSULE BY MOUTH TWICE A DAY FOR 7 DAYS active Not Available Not Available No t Available fluoxetine 20 mg capsule TAKE 3 TABLETS BY MOUTH EVERY DAY active Not Available Not Available No t Available lisinopril 2.5 mg tablet TAKE 1 TABLET BY MOUTH EVERY DAY active Not Available Not Available No t Available loratadine 10 mg tablet TAKE 1 TABLET BY MOUTH EVERY DAY active Not Available Not Available No t Available Vitamin D3 25 mcg (1,000 unit) tablet TAKE 1 TABLET BY MOUTH EVERY DAY active Not Available Not Available No t Available Lyrica 25 mg capsule TAKE 1 CAPSULE BY MOUTH EVERY DAY active Not Available Not Available No t Available Lantus Solostar U-100 Insulin 100 unit/mL (3 mL) subcutaneou s pen INJECT 22 UNITS SUBCUTANE OUS INJECTION DAILY AT BEDTIME active Not Available Not Available No t Available lidocaine (PF) 100 mg/5 mL (2 %) injection syringe Take 2 mL by injection route. 2022 active Not Available Not Available Not Avai lable Ozempic 0.25 mg or 0.5 mg (2 mg/1.5 mL) subcutaneou s pen injector INJECT 0.25 MG WEEKLY FOR THE FIRST MONTH. THEN INCREASE TO 0.5 MG WEEKLY. active Not Available Not Available No t Available BD Helene 2nd Gen Pen Needle 32 gauge x 32 USE TO INJECT INSULIN FOUR TIMES DAILY active Not Available Not Available No t Available Ozempic 1 mg/dose (4 mg/3 mL) subcutaneou s pen injector INJECT SUBCUTANE OUSLY 1MG INTO THE SKIN ONCE A WEEK active Not Available Not Available No t Available insulin glargine-yf gn (U-100) 100 unit/mL (3 mL) subcutaneou s pen INJECT 22 UNITS INTO THE SKIN AT BEDTIME. 06/30 completed Not Available Not Available Not Available Ozempic 0.25 mg or 0.5 mg (2 mg/3 mL) subcutaneou s pen injector INJECT SUBCUTANE OUSLY 0.5 MG INTO THE SKIN EVERY 7 DAYS. 06/30 completed Not Available Not Available Not Available Vitals Date Recorded Body height Provider Name an d Address Organization Details Last Updated DateTime 06/30/2023 160.[address] [place] [facility] 06/30/2023 13:30:26 Date Recorded Body height Body mass index (BMI) Body weight Provider Name and Address Organization Details Last Updated DateTime 03/15/2023 160.02 cm 38.8 kg/m2 76649[address] [place] [facility] 03/15/2023 14:31:45 Social History None recorded. Functional Status Question Answer Note LastModified by Organizat ion Details LastModified Time Do you use any illicit or recreational drugs? No [email or web address] Information not available 03/15/2023 What is your level of alcohol consumption? None [email or web address] Information not available 03/15/2023 Mental Status None recorded. Family History Relationship Description Onset Age of this Age Resolved Age Notes LastModified by Organization Details LastModified Time Father Diabetes mellitus [email or web address] Not available 2022 14:32:33 Medical History Condition Response Diabetes Y Gout Y Rheumatoid Arthritis Y Gynecological HistoryNo gynecological history recorded. Obstetrics History GPAL:G 0 P 0 0 0 0 Past Encounters Encounter ID Performer Location Encounter Start Date Encounter Closed Date Diagnosis/Indication Diagnosis SNOMED-CT Code Diagnosis ICD10 Code Diagnosis Note [id number] ELSY HALL [employer] [facility] [address] [facility] [address] [place] [address] 03/15/2023 14:16:34 03/15/2023 15:01:50 Pain of left shoulder joint 7064608714 8131577 M25.512 Osteoarthr itis of joint of left shoulder region 6886531271 24099 M19.012 Tendinitis of rotator cuff tendon 908271909 M67.819 [id number] ELSY HERNANDEZ [facility] [address] [facility] [address] [place] [address] 06/30/2023 13:15:41 06/30/2023 13:47:43 Tendinitis of left rotator cuff 8140682575 3233630 M67.814 Adhesive c apsulitis of left shoulder 5235821416 10469 M75.02 Health Concerns Section Related Observation LastModified by Organization Detai ls LastModified Time None Recorded Concern Status LastModified by Organization Details LastModified Time None Recorded Advance Directives Directive None Recorded Payers Encounter Date Sequence Insurance Name Policy Number Policy Anton Covered Member ID Anton Member ID Guarantor Name 03/15/2023 2 [place] [facility] Mary Cintron Terence [id number] Mary Cintron Terence 03/15/2023 1 [place] B[place] [facility] Mary Burnettt Terence [id number] Mary Moyet Terence 06/30/2023 2 [place] [facility] Mary Burnettt Terence [id number] Mary Ringyet Terence 06/30/2023 1 [place] [facility] Mary Burnettt Terence [id number] Mary Burnettt Terence Notes Date Note Type Note Provider Name and Address Organization Details Recorded Time 03/15/2023 text/html 08/24/2018: Left shoulder arthroscopy, rotator cuff repair, extensive glenohumeral debridement with biceps tenotomy, subacromial decompression/acromiop lasty, loose body removal. 67yo, deconditioned female presents to the office today with her regarding left shoulder pain for about 9 months. No known injury or trauma recall. She reports she did fairly well following her left shoulder surgery in 2019 until 9mo ago. She is complaining of moderate pain, rates 5/10 on average and decreased ROM. She has limits to daily activities with any reaching overhead or lifting. She endorses significant nightime pain. She has been taking ibuprofen and using heat for relief. Denies numbness, tingling or loss of sensation. Denies radiation pain beyond the biceps. Denies neck pain. Reported medical history includes Type II DM, gout and rheumatoid arthritis. Former smoker. States she was recently started on Ozempic and her most recent A1c was above 9. WILLIS BANERJEE PA-C [address] [place] [address],[facility] [address], [place], [address], [place] [facility] 03/24/2023 22:50:44 06/30/2023 text/html Assessment & Yas n: Prior note from Soila DAY-G50-atwz-iqx female with history of rotator cuff repair presented to the office complaining of left shoulder pain. Her pain is likely multifactorial in nature. Her history and exam are consistent with rotator cuff tendinitis as well as osteoarthritis of the shoulder. Cannot definitively exclude a retear of her rotator cuff however we will defer any discussion of surgical intervention as I do not think she would be a good candidate at this time. Additionally, there is perhaps radiographic evidence of an old healed tuberosity fracture. I suggest we begin with conservative management. She will trial a course of physical therapy. She was given a prescription for this today. We discussed the possibility for a steroid injection if her A1c is improved after she follows up with her PCP. She will call to follow up as needed. She can continue to use ibuprofen or Tylenol with appropriate zkff-zth-twgxklr dosing and GI precautions. Icing protocol reviewed. Advised she can continue activity as tolerated and should avoid immobilization of the shoulder to avoid developing a capsular pattern. Questions invited and answered. Patient and her verbalized understanding and agreement with plan.pain of left shoulder joint Order xr shoulder, 2 or more view, 26337eldckkilpfkydv of joint of left shoulder regiontendinitis of rotator cuff tendon HPI:Patient here for follow-up states she has failed physical therapy. She is accompanied by her at today's visit. Ongoing stiffness and discomfort waking up at night. Denies any neck symptoms paresthesia or weakness. Here for follow-up evaluation and possible cortisone injection. I did review the imaging studies that were last performed on her left shoulder. Upon further questioning patient states she had cortisone injections before for which she takes insulin she is comfortable with adjusting her blood sugars accordingly. Her last A1c she states was 6.0. She is well controlled. HANNAH LAGUNAS PA-C [address] [place] [address], [place], [address], [place] [facility] 06/30/2023 13:58:23 OBGyn Episode No OBEpisode recorded.
--- OUTSIDE RECORDS SUMMARY | 2024-12-20 13:29 | XMS_ITS | Clinical Summary ---
Author Organization [facility] Address [address] [place] [address] Care Team Providers Care Planting Machine Crewman Name Role Phone Amanda Lemon MD Primary [...] 11/19/2014 Overview: Overview: Occasional CS shots at [facility] with Dr. Covarrubias Osteoarthritis of right [...] age to complete this topic Care Teams Planting Machine Crewman Relationship Specialty Start Date End Date Amanda Lemon MD [address] [place] [address] PCP - General Internal Medicine 08/14/22
[2025-01-26 13:21] VITALS: BP 192/79; PULSE 59; RESP 20; O2SAT 98; BMI 34.1
[2025-02-09] VITALS (20 sets, daily range): BP systolic 98–143; BP diastolic 41–59; PULSE 67–84; RESP 12–18; TEMP 36.1–36.4; O2SAT 5–100
[2025-02-09 06:44] LABS: Glucose, Whole Blood 160 mg/dL (60-115)
[2025-02-09] MEDS: Lactated Ringers 1,000 ML 100 ML IVCONT (07:07)
--- NOTE | 2025-02-09 07:30 | HO.ANESPROP2 ---
Documented by User: Candis Foster NP 02/07/25 15:05 HPI - Anesthesia Eval Consult details Narrative: 69 yr old female for left shoulder Arthroscopy with mini open, distal clavicle excision, acromioplasty, partial rotator cuff repair. PMFSH Active Problems Active Problems: All Active Problems (Updated 01/26/25 @ 13:03 by Izabela Conklin RN) Osteoarthritis of right knee (Acute) Impingement syndrome of left shoulder (Acute) Left shoulder pain (Acute) Arthritis of right knee (Acute) Right knee pain (Acute) Past Medical History Medical History Back pain History of headache Depression Habitual snoring Tachycardia HTN (hypertension) Incomplete right bundle branch block Abnormal EKG Atherosclerosis Adenoma of left adrenal gland Pulmonary nodule History of nephrolithiasis Neuropathy Lumbar spondylosis Lipoma of chest wall Calcifying tendinitis of left shoulder WILL (obstructive sleep apnea) Osteopenia Osteoarthritis Migraine Cervical spinal stenosis Anxiety and depression Diabetes GERD (gastroesophageal reflux disease) Elevated cholesterol Surgical History Surgical History History of esophagogastroduodenoscopy (EGD) H/O colonoscopy Hx of cataract extraction Hx of cholecystectomy Hx of appendectomy Hx of hysterectomy Hx of shoulder surgery Hx of arthroscopy of right knee Social History Social History Are you a primary critical care physician assistant to a significant other at home: No Do you presently have visiting nurse or other home services: Yes (STITCHER TAPE CONTROLLED MACHINE) Alcohol intake: never Patient Tobacco Use Status: Never used Tobacco Use of substances other than those prescribed or required for medical reasons: No Have you been hit, kicked, punched, or otherwise hurt by someone within the past year? If so, by whom?: No Are you DNR?: No Advance Directives: No Advance Directives Information Provided: Yes Advance Directives on File: No Patient : No : No Poor oral hygiene: Yes Current occupational status: unemployed Meds Allergies Allergy/AdvReac Type Severity Reaction Status Date / Time oxycodone (From Percocet) Allergy Intermediate itchy Verified 02/09/25 06:24 latex Allergy Unknown Unknown Verified 02/09/25 06:24 penicillin V Allergy Unknown unknown Verified 02/09/25 06:24 pollen extracts Allergy Unknown Unknown Verified 02/09/25 06:24 Iodinated Contrast Media Allergy Itching Verified 02/09/25 06:24 (Contrast Dye) aspirin AdvReac Intermediate Gastrointestinal Verified 02/09/25 06:24 Upset Active Medications: Current Medications Clindamycin Phosphate (Cleocin) 900 mg in 50 mls @ 50 mls/hr IV PREOP ONE Stop: 02/09/25 06:51 Home Medications ?Medication ?Instructions ?Recorded ?Confirmed ?Last Taken ?Type lisinopril 2.5 mg tablet 2.5 mg PO DAILY 04/07/23 02/01/25 Unknown History loratadine 10 mg tablet (Allergy 10 mg PO DAILY 04/07/23 02/01/25 Unknown History Relief (loratadine)) omeprazole 40 mg capsule,delayed 40 mg PO DAILY 04/07/23 02/01/25 Unknown History release pregabalin 25 mg capsule (Lyrica) 25 mg PO DAILY PRN Pain 04/07/23 02/01/25 Unknown History topiramate 25 mg capsule,extended 25 mg PO DAILY PRN Headache 04/07/23 02/01/25 Unknown History release 24 hr venlafaxine 75 mg capsule,extended 75 mg PO DAILY 08/22/24 02/01/25 Unknown History release 24 hr insulin glargine 100 unit/mL (3 22 unit subcut BEDTIME 01/26/25 02/01/25 Unknown History mL) subcutaneous pen (Lantus Solostar U-100 Insulin) tirzepatide 2.5 mg/0.5 mL 2.5 mg subcut 01/26/25 02/01/25 Unknown History subcutaneous pen injector (Mounjaro) venlafaxine 37.5 mg 37.5 mg PO DAILY 01/26/25 02/01/25 Unknown History capsule,extended release 24 hr Exam Height,Weight and Vital Signs: Height 5 ft 3 in Weight 87.4 kg Last Vital Signs Pulse 59 01/26/25 13:21 Resp 20 01/26/25 13:21 BP 192/79 H 01/26/25 13:21 Pulse Ox 98 01/26/25 13:21 O2 Del Method Room Air 01/26/25 13:21 Documented by User: Kat Alvarez NP 02/08/25 08:42 HPI - Anesthesia Eval Consult details Narrative: 69 yr old female for left shoulder Arthroscopy with mini open, distal clavicle excision, acromioplasty, partial rotator cuff repair. Medically optimized per [facility] preop clinic. BP up at visit, but meets goal of <180/110 . Pt instructed to keep BP log at home and bring DOS WILL: Does not tolerare CPAP Cardiac eval 2020 for atypical CP - prn f/u only Anesthesia Pre-Procedure Meds Is the patient on any of the following meds?: GLP1/DPP4 PMFSH Past Medical History Medical History Back pain History of headache Depression Habitual snoring Tachycardia HTN (hypertension) Incomplete right bundle branch block Abnormal EKG Atherosclerosis Adenoma of left adrenal gland Pulmonary nodule History of nephrolithiasis Neuropathy Lumbar spondylosis Lipoma of chest wall Calcifying tendinitis of left shoulder WILL (obstructive sleep apnea) Osteopenia Osteoarthritis Migraine Cervical spinal stenosis Anxiety and depression Diabetes GERD (gastroesophageal reflux disease) Elevated cholesterol Surgical History Surgical History History of esophagogastroduodenoscopy (EGD) H/O colonoscopy Hx of cataract extraction Hx of cholecystectomy Hx of appendectomy Hx of hysterectomy Hx of shoulder surgery Hx of arthroscopy of right knee Social History Social History Are you a primary critical care physician assistant to a significant other at home: No Do you presently have visiting nurse or other home services: Yes (STITCHER TAPE CONTROLLED MACHINE) Alcohol intake: never Patient Tobacco Use Status: Never used Tobacco Use of substances other than those prescribed or required for medical reasons: No Have you been hit, kicked, punched, or otherwise hurt by someone within the past year? If so, by whom?: No Are you DNR?: No Advance Directives: No Advance Directives Information Provided: Yes Advance Directives on File: No Patient : No : No Poor oral hygiene: Yes Current occupational status: unemployed Meds Allergies Allergy/AdvReac Type Severity Reaction Status Date / Time oxycodone (From Percocet) Allergy Intermediate itchy Verified 02/09/25 06:24 latex Allergy Unknown Unknown Verified 02/09/25 06:24 penicillin V Allergy Unknown unknown Verified 02/09/25 06:24 pollen extracts Allergy Unknown Unknown Verified 02/09/25 06:24 Iodinated Contrast Media Allergy Itching Verified 02/09/25 06:24 (Contrast Dye) aspirin AdvReac Intermediate Gastrointestinal Verified 02/09/25 06:24 Upset Home Medications ?Medication ?Instructions ?Recorded ?Confirmed ?Last Taken ?Type lisinopril 2.5 mg tablet 2.5 mg PO DAILY 04/07/23 02/01/25 Unknown History loratadine 10 mg tablet (Allergy 10 mg PO DAILY 04/07/23 02/01/25 Unknown History Relief (loratadine)) omeprazole 40 mg capsule,delayed 40 mg PO DAILY 04/07/23 02/01/25 Unknown History release pregabalin 25 mg capsule (Lyrica) 25 mg PO DAILY PRN Pain 04/07/23 02/01/25 Unknown History topiramate 25 mg capsule,extended 25 mg PO DAILY PRN Headache 04/07/23 02/01/25 Unknown History release 24 hr venlafaxine 75 mg capsule,extended 75 mg PO DAILY 08/22/24 02/01/25 Unknown History release 24 hr insulin glargine 100 unit/mL (3 22 unit subcut BEDTIME 01/26/25 02/01/25 Unknown History mL) subcutaneous pen (Lantus Solostar U-100 Insulin) tirzepatide 2.5 mg/0.5 mL 2.5 mg subcut 01/26/25 02/01/25 Unknown History subcutaneous pen injector (Mounjaro) venlafaxine 37.5 mg 37.5 mg PO DAILY 01/26/25 02/01/25 Unknown History capsule,extended release 24 hr Exam Pertinent Lab Results Pertinent Lab Results: CBC and BMP 12/2024 from [facility] [place] A1C = 7.5 Narrative Narrative: EKG 12/2024 Ventricular Rate: 64 BPM Atrial Rate: 64 BPM P-R Interval: 158 ms QRS Duration: 98 ms Q-T Interval: 478 ms QTC Calculation(Bazett): 493 ms P Salem: 39 degrees R Salem: 0 degrees T Salem: 41 degrees Normal sinus rhythm Incomplete right bundle branch block Cannot rule out Inferior infarct , age undetermined Abnormal ECG When compared with ECG of 20-Mar-2024 09:43, No significant change was found Confirmed by YOSHI TAPIA MD ([id number]) on 01/03/2025 8:15:59 PM Assessment and Plan Assessment Anesthesia Assessment: Chart Reviewed Documented by User: Olivia Diggs DO 02/09/25 08:01 HPI - Anesthesia Eval Consult details Narrative: 69 yr old female for left shoulder Arthroscopy with mini open, distal clavicle excision, acromioplasty, partial rotator cuff repair. Medically optimized per [facility] preop clinic. BP up at visit, but meets goal of <180/110 . Pt instructed to keep BP log at home and bring DOS WILL: Does not tolerate CPAP Cardiac eval 2020 for atypical CP - prn f/u only Anesthesia Pre-Procedure Meds Is the patient on any of the following meds?: GLP1/DPP4 PMFSH Past Medical History Medical History Back pain History of headache Depression Habitual snoring Tachycardia HTN (hypertension) Incomplete right bundle branch block Abnormal EKG Atherosclerosis Adenoma of left adrenal gland Pulmonary nodule History of nephrolithiasis Neuropathy Lumbar spondylosis Lipoma of chest wall Calcifying tendinitis of left shoulder WILL (obstructive sleep apnea) Osteopenia Osteoarthritis Migraine Cervical spinal stenosis Anxiety and depression Diabetes GERD (gastroesophageal reflux disease) Elevated cholesterol Family History Family history of problems with anesthesia: No Surgical History Surgical History History of esophagogastroduodenoscopy (EGD) H/O colonoscopy Hx of cataract extraction Hx of cholecystectomy Hx of appendectomy Hx of hysterectomy Hx of shoulder surgery Hx of arthroscopy of right knee History of Problems with Anesthesia: No Social History Social History Are you a primary critical care physician assistant to a significant other at home: No Do you presently have visiting nurse or other home services: Yes (STITCHER TAPE CONTROLLED MACHINE) Alcohol intake: never Patient Tobacco Use Status: Never used Tobacco Use of substances other than those prescribed or required for medical reasons: No Have you been hit, kicked, punched, or otherwise hurt by someone within the past year? If so, by whom?: No Are you DNR?: No Advance Directives: No Advance Directives Information Provided: Yes Advance Directives on File: No Patient : No : No Poor oral hygiene: Yes Current occupational status: unemployed Meds Allergies Allergy/AdvReac Type Severity Reaction Status Date / Time oxycodone (From Percocet) Allergy Intermediate itchy Verified 02/09/25 06:24 latex Allergy Unknown Unknown Verified 02/09/25 06:24 penicillin V Allergy Unknown unknown Verified 02/09/25 06:24 pollen extracts Allergy Unknown Unknown Verified 02/09/25 06:24 Iodinated Contrast Media Allergy Itching Verified 02/09/25 06:24 (Contrast Dye) aspirin AdvReac Intermediate Gastrointestinal Verified 02/09/25 06:24 Upset Home Medications ?Medication ?Instructions ?Recorded ?Confirmed ?Last Taken ?Type lisinopril 2.5 mg tablet 2.5 mg PO DAILY 04/07/23 02/01/25 Unknown History loratadine 10 mg tablet (Allergy 10 mg PO DAILY 04/07/23 02/01/25 Unknown History Relief (loratadine)) omeprazole 40 mg capsule,delayed 40 mg PO DAILY 04/07/23 02/01/25 Unknown History release pregabalin 25 mg capsule (Lyrica) 25 mg PO DAILY PRN Pain 04/07/23 02/01/25 Unknown History topiramate 25 mg capsule,extended 25 mg PO DAILY PRN Headache 04/07/23 02/01/25 Unknown History release 24 hr venlafaxine 75 mg capsule,extended 75 mg PO DAILY 08/22/24 02/01/25 Unknown History release 24 hr insulin glargine 100 unit/mL (3 22 unit subcut BEDTIME 01/26/25 02/01/25 Unknown History mL) subcutaneous pen (Lantus Solostar U-100 Insulin) tirzepatide 2.5 mg/0.5 mL 2.5 mg subcut 01/26/25 02/01/25 Unknown History subcutaneous pen injector (Bay) venlafaxine 37.5 mg 37.5 mg PO DAILY 01/26/25 02/01/25 Unknown History capsule,extended release 24 hr Exam Exam Date and Time: 02/09/25 0730 Height,Weight and Vital Signs: Height 5 ft 3 in Weight 87.4 kg Last Vital Signs Pulse 59 01/26/25 13:21 Resp 20 01/26/25 13:21 BP 192/79 H 01/26/25 13:21 Pulse Ox 98 01/26/25 13:21 O2 Del Method Room Air 01/26/25 13:21 Airway Mallampati Class: II TM Dist: <=3cm Neck ROM: Limited Denture: Upper Partial: Lower Heart: S1S2 Lungs: CTAB Assessment and Plan Assessment Anesthesia Assessment: Anesthesia Plan Discussed and Chart Reviewed Final Anesthetic Review Family History of Problems with Anesthesia: No History of Problems with Anesthesia: No NPO: Yes ASA Class: III Final Preanesthetic Review: No Changes in Pt Med Stat, Meds/Allgs Chart Reviewed, Consent Obtained/Reviewed and Anes Risks/Benef Reviewed Patient Risk: Intermediate Procedure Risk: Intermediate Anesthetic Plan Anesthetic Plan: GA, Regional Block (left brachial plexus block) and Agree w/ Assess. and Plan Disposition: Standard PACU
--- NOTE | 2025-02-09 09:11 | PM.OP ---
Brief Operative Note Date of Service: 02/09/25 Pre-op diagnosis: Left shoulder impingement syndrome, left shoulder acromioclavicular joint arthritis, possible left shoulder rotator cuff repair Post-op diagnosis: other (Left shoulder impingement syndrome, left shoulder acromioclavicular joint arthritis, left shoulder adhesive capsulitis) Procedure: Left shoulder arthroscopic distal clavicle excision, left shoulder arthroscopic acromioplasty, left shoulder arthroscopic anterior capsular release, left shoulder manipulation under anesthesia Implants: None Surgeon: Silver Peters MD Anesthesia: GETA and regional Was an Agricultural Service Technician used for this Procedure?: No Estimated blood loss (mL): 10 Pathology: none sent Condition: stable Disposition: PACU
--- NOTE | 2025-02-09 09:12 | W.PM.OPN ---
Operative Note Operative Note Date of Service: 02/09/25 Narrative: After the patient was identified as Mary Pratt and her left shoulder was initialed by myself the patient was brought to the holding area where a left shoulder interscalene regional block was performed by the anesthesiologist in routine fashion. The patient was then brought to the operating room where general anesthesia was induced by the anesthesiologist in routine fashion. Because of the patient's allergy to penicillin she was given 900 mg of IV clindamycin preoperatively for infection prophylaxis. Examination under anesthesia of the patient's left shoulder showed decreased range of motion when compared to the right shoulder. The patient's left shoulder had forward flexion to 130 degrees compared to 170 degrees, external rotation to 30 degrees compared to 60 degrees, and internal rotation to 50 degrees compared to 60 degrees. The patient was gently positioned in the beach chair position with all bony prominences well padded. The patient's left shoulder region and upper extremity were prepped and draped in sterile fashion. A formal time-out was completed. A #11 scalpel blade was used to make a posterior portal 2 cm inferior and 1 cm medial to the posterolateral corner of the acromion. Blunt trocar technique was used to enter the glenohumeral joint in routine fashion. An anterior portal was made just lateral to the coracoid process after proper positioning was confirmed using a spinal needle. Diagnostic arthroscopy showed minimal degenerative changes of the glenoid and humeral head articular surfaces. There was no evidence of rotator cuff tearing. There was no evidence of injury to the biceps tendon or its insertion onto the glenoid. There was inflammation of the anterior joint capsule consistent with adhesive capsulitis. The ArthroCare Wand was then used to perform an anterior capsular release between the inferior border of the biceps tendon and the superior border of the subscapularis tendon. The arthroscope was then placed from the posterior portal into the subacromial space. A lateral portal was made 2 fingerbreadths lateral to the anterior lateral corner of the acromion. The ArthroCare Wand was used to ablate soft tissues along the undersurface of the acromion as well as to excise the coracoacromial ligament. There was a sharp spur along the undersurface of the acromion which was removed using the hooded bur. The arthroscope was then placed into the lateral portal and the acromioplasty was completed with the bur in the posterior portal using the posterior aspect of the acromion as a cutting block. The ArthroCare Wand was then brought in through the anterior portal and was used to ablate soft tissues along the acromioclavicular joint and distal clavicle. The posterior and superior ligamentous structures were left intact. A distal clavicle excision of 8 mm was performed using the hooded bur. Any remaining bursal tissue was removed using the arthroscopic shaver. The subacromial space was irrigated and then drained. All arthroscopic instruments were removed. A gentle manipulation under anesthesia was then performed. Full passive range of motion was easily attained. The 3 portals were closed with 3-0 nylon interrupted suture. The subacromial space was injected with Marcaine. Dry sterile dressing was placed over all incisions. The patient's left upper extremity was placed into a sling. The patient was awoken and extubated in the operating room. The patient was transferred to the recovery room in stable condition.
== END 2025-02-09 14:39 | disposition home or self-care (01) ==
PROVIDERS: PCP Internal Medicine; Visit Provider Orthopaedic Surgery
PROC: (CPT 29824; principal; 2025-02-09 07:30)
DX: M75.42 Impingement syndrome of left shoulder (principal); M75.02 Adhesive capsulitis of left shoulder; M19.012 Primary osteoarthritis, left shoulder; M24.612 Ankylosis, left shoulder; M48.02 Spinal stenosis, cervical region; M85.80 Other specified disorders of bone density and structure, unspecified site; E11.9 Type 2 diabetes mellitus without complications; E78.00 Pure hypercholesterolemia, unspecified; G47.33 Obstructive sleep apnea (adult) (pediatric); G43.909 Migraine, unspecified, not intractable, without status migrainosus; F41.9 Anxiety disorder, unspecified; Z79.4 Long term (current) use of insulin; Z79.85 Long-term (current) use of injectable non-insulin antidiabetic drugs; Z79.1 Long term (current) use of non-steroidal anti-inflammatories (NSAID); Z79.899 Other long term (current) drug therapy; Z88.0 Allergy status to penicillin; Z88.5 Allergy status to narcotic agent; Z88.6 Allergy status to analgesic agent; Z91.040 Latex allergy status; Z98.890 Other specified postprocedural states; Z56.0 Unemployment, unspecified
CPT/HCPCS: 29824; 29825; 29826; 82947; J0131; J0165; J0736; J1100; J2003; J2250; J2405; J2704; J2795; J3010

== ENCOUNTER → 2025-02-09 06:18 | Outpatient (BNV) | payer MEDICARE, MEDICAID, SELFPAY | PROVIDERS: PCP Internal Medicine; Visit Provider Orthopaedic Surgery | DX: M75.42 Impingement syndrome of left shoulder (principal); M19.012 Primary osteoarthritis, left shoulder | CPT/HCPCS: 29824; 29826 ==

== ENCOUNTER 2025-02-22 09:55 | Outpatient (AMB) | payer MEDICARE, MEDICAID, SELFPAY ==
--- NOTE | 2025-02-22 09:59 | MHC.OFFVIS ---
Intake Visit Reasons: PO-Lt Shld 02/09/25 Intake Note: Mary is a 69 year old female who presents today for a post operative visit after undergoing a left shoulder arthroscopic distal clavicle excision, acromioplasty, anterior capsular release, left shoulder manipulation under anesthesia, DOS 02/09/[address] Peters. Patient reports she is doing well, she has mild pain. She continues to wear sling, and had taken her arm out yesterday for gentle stretching. Cable Splicer Apprentice Required: Yes Cable Splicer Apprentice Services: Cable Splicer Apprentice Offered & Declined Accompanied by: Spouse Allergies oxycodone (From Percocet) Allergy (Intermediate, Verified 02/22/25 10:05) itchy latex Allergy (Unknown, Verified 02/22/25 10:05) Unknown penicillin V Allergy (Unknown, Verified 02/22/25 10:05) unknown pollen extracts Allergy (Unknown, Verified 02/22/25 10:05) Unknown Iodinated Contrast Media (Contrast Dye) Allergy (Verified 02/22/25 10:05) Itching aspirin Adverse Reaction (Intermediate, Verified 02/22/25 10:05) Gastrointestinal Upset Medication List - Last Reconciled 02/22/25 by Zabrina Freeman PA-C hydromorphone (Dilaudid) 4 mg PO Q4H PRN insulin glargine (Lantus Solostar U-100 Insulin) 22 units subcut BEDTIME lisinopril 2.5 mg PO DAILY loratadine (Allergy Relief (loratadine)) 10 mg PO DAILY omeprazole 40 mg PO DAILY pregabalin (Lyrica) 25 mg PO DAILY PRN tirzepatide (Mounjaro) 2.5 mg subcut topiramate XR 25 mg PO DAILY PRN venlafaxine ER 37.5 mg PO DAILY venlafaxine ER 75 mg PO DAILY HPI HPI PO-Lt Shld 02/09/25 DR: Details: 69-year-old female returns to the office today status post left shoulder arthroscopy on 02/09/[address] Peters. She is doing well today and has no concerns. [facility] Medical History Back pain History of headache Depression Habitual snoring Tachycardia HTN (hypertension) Incomplete right bundle branch block Abnormal EKG Atherosclerosis Adenoma of left adrenal gland Pulmonary nodule History of nephrolithiasis Neuropathy Lumbar spondylosis Lipoma of chest wall Calcifying tendinitis of left shoulder WILL (obstructive sleep apnea) Osteopenia Osteoarthritis Migraine Cervical spinal stenosis Anxiety and depression Diabetes GERD (gastroesophageal reflux disease) Elevated cholesterol Surgical History History of esophagogastroduodenoscopy (EGD) H/O colonoscopy Hx of cataract extraction Hx of cholecystectomy Hx of appendectomy Hx of hysterectomy Hx of shoulder surgery Hx of arthroscopy of right knee Social History Are you a primary childcare attendant to a significant other at home: No Do you presently have visiting nurse or other home services: Yes ([employer]) Alcohol intake: never Patient Tobacco Use Status: Never used Tobacco Current occupational status: unemployed Review of Systems Const All systems reviewed & are unremarkable except as noted in HPI and below Physical Exam Extrem Other: Left shoulder incision is clean dry and intact no erythema or drainage neurovascularly intact. Results Reviewed Results Reviewed: Brief Operative Note Date of Service: 02/09/25 Pre-op diagnosis: Left shoulder impingement syndrome, left shoulder acromioclavicular joint arthritis, possible left shoulder rotator cuff repair Post-op diagnosis: other (Left shoulder impingement syndrome, left shoulder acromioclavicular joint arthritis, left shoulder adhesive capsulitis) Procedure: Left shoulder arthroscopic distal clavicle excision, left shoulder arthroscopic acromioplasty, left shoulder arthroscopic anterior capsular release, left shoulder manipulation under anesthesia Implants: None Surgeon: Silver Peters MD Assessment & Plan Assessment & Plan (1) Impingement syndrome of left shoulder: Code(s): M75.42 - Impingement syndrome of left shoulder Category: Medical Plan: Sutures removed today Steri-Strips applied. She was given an order for physical therapy and provided with the information to make an appointment. She will avoid repetitive overhead lifting and reaching to avoid irritation. She can advance activities as tolerated and will follow up in [address] Peters, sooner if needed. Orders: Orders PT Evaluation and Treatment Today M75.42 - Impingement syndrome of left shoulder Coding Level of Care Code Global (93589) Diagnoses Impingement syndrome of left shoulder M75.42
--- OUTSIDE RECORDS SUMMARY | 2025-02-22 10:41 | XMS_ITS | Clinical Summary ---
Author Organization [facility] Address [address] [place] [address] Care Team Providers Care Layout Artist Name Role Phone Amanda Lemon MD Primary [...] 11/19/2014 Overview: Overview: Occasional CS shots at [facility] with Dr. Covarrubias Osteoarthritis of right [...] PCV20) 05/31/2019 05/31/2018, 08/16/2013 Influenza Vaccine (#1) 2025 , 06/04/2021, 05/31/2018, Additional history exists DTap / Tdap / Td (2 - Td or Tdap) 11/03/2026 11/03/2016 Hepatitis B Vaccines Aged Out No long er eligible based on patient's age to complete this topic RSV Ped < 20 months Aged Out No longe r eligible based on patient's age to complete this topic Care Teams Layout Artist Relationship Specialty Start Date End Date Amanda Lemon MD [address] [place] [address] PCP - General Internal Medicine 08/14/22
--- OUTSIDE RECORDS SUMMARY | 2025-02-22 10:41 | XMS_ITS | Clinical Summary ---
Author Organization [facility] Address [address] [place] [phone] Phone Care Team Providers Care Content Designer Name Role Phone Julissa Junior MD Primary Care Provider Encounters Date Type Department Care Team Description 02/07/2025 1:20 PM EDT - 02/07/2025 11:59 PM EDT [facility] [address] [phone] Breast calcifications Discharge Disposition: Home or Self Care 01/31/2025 Telephone [facility] [address] [place] [phone] Provider, Not In System Medical Records 12/26/2024 12:52 PM EDT - 12/26/2024 11:59 PM EDT Hospital Encounter [facility] at [address] [phone] Encounter for screening mammogram for breast cancer Discharge Disposition: Home or Self Care from Last 3 Months Surgical History Surgery Date Site/Laterality Comments APPENDECTOMY PROCEDURE: HISTORICAL APPENDECTOMY CHOLECYSTECTOMY PROCEDURE: HISTORICAL CHOLECYSTECTOMY KNEE ARTHROSCOPY W/ MENISCAL REPAIR 09/20/2014 Right PROCEDURE: TN ARTHROSCOPY KNEE W/MENISCUS RPR MEDIAL/LATERAL COLONOSCOPY 11/30/2016 PROCEDURE: HISTORICAL COLONOSCOPY; COMMENT: Nine polyps COLONOSCOPY 04/02/2021 PROCEDURE: HISTORICAL COLONOSCOPY; COMMENT: 8 polyps removed Medical History Medical History Date Comments Migraine 10/02/2014 DX:Migraine Osteoarthritis of lumbar spine 11/19/2014 D X:Osteoarthritis of lumbar spine; COMMENT: Occasional CS shots at [facility] with Dr. 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 (CMS/HCC V24, [facility] V28) DX:Controlled type 2 diabet es mellitus [...] Sexual Orientation Not on file Obstetrics History Para Term AB IAB SAB Ectopic Multiple Livin g Live Births 3 Last Filed Vital Signs Vital Sign Reading Time Taken Comments Blood Pressure 107/55 06/29/2023 10:59 AM EST Pulse 74 06/29/2023 10:59 AM EST Temperature - - Respiratory Rate - - Oxygen Saturation - - Inhaled Oxygen Concentration - - Weight 61.2 kg (135 lb) 12/26/2024 1:22 PM EDT Height 160 cm (5' 3 ) 12/26/2024 1:22 PM EDT Body Mass Index 23.91 12/26/2024 1:22 PM EDT Plan of Treatment Upcoming Encounters Date Type Department Care Team (Late st Contact Info) Description 08/13/2025 1:30 PM EST Appointment [facility] at [address] [phone] Health Maintenance Due Date Last Done Comments Diabetes: Annual GFR (Glomerular Filtration Rate) 1953 Diabetes: Annual Foot Exam 1963 Diabetes: Annual Retina Eye Exam 1963 RSV Immunization Adult Patients (1 - Risk 60-74 years 1-dose series) 2013 Cholesterol Screening (Lipid Panel) 07/09/2022 Colorectal Cancer Screening: Colonoscopy 07/09/2022 Diabetes: Annual Urine Albumin-Creatinine Ratio (uACR) 07/09/2022 Diabetes: Blood Sugar Control Test (HGBA1C) 07/09/2022 Falls Risk Assessment 07/09/2022 Hepatitis C Screening 07/09/2022 Hypertension/CHF/CAD Annual BMP Blood Test 07/09/2022 Medicare Annual Wellness Visit 07/09/2022 Social Influencers of Health Screening 07/09/2022 Zoster Vaccines (3 of 3) 10/29/2023 024, 07/09/2014, 09/18/2011 Depression Screening 08/02/2024 Influenza Vaccine (#1) 2025 4, 05/13/2023, 05/04/2022, Additional history exists COVID-19 Vaccine ( season) 2025 10/27/2024, 02/01/2023, 05/28/2021, Additional history exists DTaP,Tdap,and Td Vaccines (3 - Td or Tdap) 11/03/2026 11/03/2016, 09/18/2011 Breast Cancer Screening 02/07/2027 02/08/20 25, 12/26/2024, 10/27/2022, Additional history exists Osteoporosis Screening (Bone Density Screening) 05/28/2031 05/28/2021, 06/06/2018 Varicella Vaccines Aged Out 09/18/2011 No longer eligible based on patient's age to complete this topic Pneumococcal Vaccine: 50+ Years Completed 02/01/2023, 05/31/2018, 08/16/2013 HIB Vaccines Aged Out No longer eligi [...] Procedure Name Priority Date/Time Associated Diagnosis Comments MG MAMMO DIAGNOSTIC ADDL VIEWS RIGHT Routine 02/07/2025 2:25 PM EDT Breast calcifications MG MAMMO DIGITAL SCREENING W ARI BILAT Routine 12/26/2024 1:44 PM EDT Encounter for screening mammogram for breast cancer DXA BONE DENSITY STUDY 1+ SITS AXIAL SKEL Routine 05/28/2021 1:18 PM EDT History of falling Polyneuropathy, unspecified Type 2 diabetes mellitus with other diabetic kidney complication (CMS/HCC V24, CMS/HCC V28) Proteinuria, unspecified shelter (current) use of insulin (CMS/HCC V24, CMS/HCC V28) Type 2 diabetes mellitus with diabetic polyneuropathy ([facility] V24, [facility] V28) Type 2 diabetes mellitus with hyperglycemia ([facility] V24, [facility] V28) Obesity, unspecified Anxiety disorder, unspecified Depression, unspecified Encounter for general adult medical examination without abnormal findings from Last 3 Months or Most Recently Relevant to Health Maintenance Results * MG Mammo Diagnostic Addl Views Right (02/07/2025 2:25 PM EDT) Anatomical Region Laterality Modality Breast Right Mammography 02/07/2025 2:05 PM EDT Impressions 02/07/2025 2:11 PM EDT Probably benign calcifications in the right breast. Recommend diagnostic right mammography including similar magnified views in 6 months ASSESSMENT: BI-RADS 3: PROBABLY BENIGN RECOMMENDATION(S): 1: Follow-up diagnostic mammogram RIGHT in 6 months. [facility] location[facility] [address], [address] -------- FINAL REPORT -------- Dictated By: Damian Calvert Dictated Date: 02/07/2025 14:05 ET Assigned Physician: Damian Calvert Reviewed and Electronically Signed By: Damian Calvert Signed Date: 02/07/2025 14:11 ET Workstation ID: [id number] Transcribed By: Self Edit Transcribed Date: 02/07/2025 14:05 ET Narrative 02/07/2025 2:11 PM EDT EXAM: DIAGNOSTIC MAMMOGRAPHY, UNILATERAL RIGHT HISTORY: Abnormal screening mammogram. Incompletely characterized right breast calcifications. COMPARISON: Right mammography 12/26/24 TECHNIQUE: Spot magnified views of the right breast and multiple projections. ADDITIONAL IMAGING: None Computer aided detection was not utilized. TISSUE DENSITY: There are scattered areas of fibroglandular density. (BI-RADS category B) FINDINGS: RIGHT BREAST: There are several round calcifications in the 12 o'clock position 10 cm from the right nipple. There is no associated mass. There are no branching forms. These are similar to multiple tightly grouped round calcifications elsewhere in the right breast. No additional suspicious right breast findings Procedure Note Damian Calvert MD - 02/07/2025 EXAM: DIAGNOSTIC MAMMOGRAPHY, UNILATERAL RIGHT HISTORY: Abnormal screening mammogram. Incompletely characterized rightbreast calcifications. COMPARISON: Right mammography 12/26/24 TECHNIQUE: Spot magnified views of the right breast and multipleprojections. ADDITIONAL IMAGING: None Computer aided detection was not utilized. TISSUE DENSITY: There are scattered areas of fibroglandular density.(BI-RADS category B) FINDINGS: RIGHT BREAST: There are several round calcifications in the 12 o'clock position 10 cmfrom the right nipple. There is no associated mass. There are nobranching forms. These are similar to multiple tightly grouped round calcificationselsewhere in the right breast. No additional suspicious right breast findings IMPRESSION: Probably benign calcifications in the right breast. Recommend diagnostic right mammography including similar magnified viewsin 6 months ASSESSMENT: BI-RADS 3: PROBABLY BENIGN RECOMMENDATION(S): 1: Follow-up diagnostic mammogram RIGHT in 6 months. [facility] location[facility] [address], [address] -------- FINAL REPORT -------- Dictated By: Damian Calvert Dictated Date: 02/07/2025 14:05 ET Assigned Physician: Damian Calvert Reviewed and Electronically Signed By: Damian Calvert Signed Date: 02/07/2025 14:11 ET Workstation ID: [id number] Transcribed By: Self Edit Transcribed Date: 02/07/2025 14:05 ET Amanda Sanchez MD IMG BI PROCEDURES Final Result * (ABNORMAL) MG Mammo Digital Screening w Ari bilat (12/26/2024 1:44 PM EDT) Anatomical Region Laterality Modality Breast Bilateral Mammography 12/27/2024 7:13 AM EDT Impressions 12/27/2024 7:23 AM EDT Incompletely characterized calcifications 12 o'clock position 10 cm from right nipple. Recommend diagnostic right mammography including spot magnification in the craniocaudal and mediolateral projections. No other suspicious findings. ASSESSMENT: BI-RADS 0: INCOMPLETE - need additional imaging evaluation and/or prior mammograms for comparison RECOMMENDATION(S): 1: Special mammographic view(s) needed RIGHT including spot magnified views [facility]amm[facility] location: [facility] [address], [address] -------- FINAL REPORT -------- Dictated By: Damian Calvert Dictated Date: 12/27/2024 07:13 ET Assigned Physician: Damian Calvert Reviewed and Electronically Signed By: Damian Calvert Signed Date: 12/27/2024 07:23 ET Workstation ID: [id number] Transcribed By: Self Edit Transcribed Date: 12/27/2024 07:13 ET Narrative 12/27/2024 7:23 AM EDT EXAM: SCREENING MAMMOGRAPHY, BILATERAL HISTORY: SCREENING. No additional history. COMPARISON: 10/26/22, 10/23/21, 09/30/20 TECHNIQUE: Synthesized CC and MLO projections of each breast. Tomosynthesis of each breast in the CC and MLO projections. ADDITIONAL IMAGING: None Computer-aided detection was employed with the [employer] AI 3-D. TISSUE DENSITY: There are scattered areas of fibroglandular density. (BI-RADS category B) FINDINGS: RIGHT BREAST: There are some grouped amorphous calcifications in the 12 o'clock position 10 cm from right nipple. Although these may represent evolving fibroadenomatoid calcifications I cannot confirm stability. There are calcifications associated with circumscribed oval masses with typical benign features. LEFT BREAST: No suspicious mass. No suspicious calcification. No distortion. No additional suspicious left breast findings us Self Referral Sppl IMG BI PROCEDURES Final Resul t * DXA BONE DENSITY STUDY 1+ SITS AXIAL SKEL (05/28/2021 1:18 PM EDT) Anatomical Region Laterality Modality Bone Densitometr y 09/05/2020 4:36 PM EST Narrative 05/28/2021 3:22 PM EDT BONE DENSITY Lumbar Spine T-score is -1.4 (SD relative to 20-29 y/o adult) Z-score is +0.5 (SD relative to age matched peers) This is consistent with osteopenia by criteria defined by the WHO. Left Hip T-score is -2.8 Z-score is -1.3 This is consistent with osteoporosis by criteria defined by the WHO. Comparison exam(s): significant decrease in bone density of hip when compared to most recent bone density examination Confidence level is +/-95%. Impression: Based on the World Health Organization criteria, Mary Cintron should be classified as having osteoporosis. The [facility] Department of Internal Medicine recommends using National [...] Cintron should beclassified as having osteoporosis. The [facility] Department of Internal Medicine recommendsusing National Osteoporosis [...] or Most Recently Relevant to Health Maintenance Insurance MEDICAID - [place] MEDICARE Care Teams Content Designer Relationship Specialty Start Date End Date Julissa Junior MD PCP - General 06/29/23
--- OUTSIDE RECORDS SUMMARY | 2025-02-22 10:41 | XMS_ITS | Data Portability ---
Author Organization [facility] Address [address] [place] [address] Care Team Providers Care Telephone Order Clerk Room Service Name Role Phone AFSANEH MORENO Referring Provider [...] to use ibuprofen or Tylenol with appropriate bhhv-mwn-bstxcwr dosing and GI precautions. Icing protocol reviewed. [...] more view 2022 [email or web address] 2 [facility], [address], [place], [address], 15:01:50 Medication Orders Kenalog 40 mg/mL suspension for injection 2022 023 [id number], [address] [place] [address], [address], 14:33:11 lidocaine (PF) 100 mg/5 mL (2 %) injection syringe 2022 023 [id number], [address] [place] [address], [address], 14:33:11 bupivacaine HCl 0.5 % (5 mg/mL) injection solution 2022 023 [id number], [address] [place] [address], [address], 14:33:11 Patient TargetsNo targets recorded. Patient Instructions Encounter Date Encounter Id Patient Instructions Last Modified By Organization Details Last Modified Time 03/15/2023 [id number] views of the left shoulder were obtained on 03/15/2023 in the [place] office. The views are limited by body [...] Hill MD Not available 03/24/2023 22:49:54 06/30/2023 [id number] You have been provided with a cortisone [...] Address Organization Details Recorded Time Diabetes mellitus 07838799 Active 2022 Gabino Hill MD [address], [place], [phone], [place] [facility], P 3 14:47:41 Osteoarthri tis of joint of left shoulder region 6477882652671 08 Active 2022 Gabino Hill MD [address], [place], [phone], [place] [facility], [facility] 3 14:47:43 Tendinitis of left rotator cuff 9603261548701 9101 Active 2022 HANNAH LAGUNAS PA-C [address], [facility] [place], [phone], [place] [facility], P 3 13:53:42 Adhesive capsulitis of left shoulder 0608691289650 07 Active 2022 HANNAH LAGUNAS PA-C [address], [facility] [place], [phone], [place] [facility], P 3 13:53:55 Problem Notes None recorded. Procedures Surgical History Date Name Laterality Status Provider Name and Address Organization Details Recorded Time 3 Shoulder Joint/Bursa Asp & Inj completed HANNAH LAGUNAS PA-C [address], [place], [phone], [place] [facility], [facility] 06/30/2023 13:53:24 Shoulder Surgery completed Yue Landaverde [facility], P 03/15/2023 14:32:49 Imaging Results None recorded. Procedure Notes None recorded. Medical Equipment None Reported. Allergies Allergen ID Allergen Name Allergen Category Reaction Reaction Severity Criticality Documentation Date Start Date Code Code System Note Provider Name and Address Organization Details Recorded Time 25351 acetamino phen / oxycodone medicatio n Not available Not available Not available 06/30/2023 09203 3 RxNorm Shelby Dennis [facility] 13:29:42 7147 Product containin g penicilli n (product) medicatio n Not available Not available Not available 03/15/2023 74723 8001 SNOMED Yue Landaverde [facility], [facility] 14:31:22 7148 aspirin medicatio n Not available Not available Not available 03/15/2023 1191 RxNorm Yue Landaverde [facility], [facility] 14:31:31 7149 latex environme nt,medica tion Not available Not available Not available 03/15/2023 28607 91 RxNorm Yue Landaverde null, [place] [facility], [facility] 3 14:31:36 Medications Name Sig Start Date Stop Date Status Note LastModified by Organization Details LastModified Time celecoxib 200 mg capsule TAKE 1 CAPSULE BY MOUTH 2 TIMES DAILY NEEDED FOR PAIN. active Not Available Not Available No t Available venlafaxine ER 37.5 mg capsule,ext ended release 24 hr TAKE 1 CAPSULE BY MOUTH ONCE A DAY WITH 75MG CAPSULE FOR TOTAL [id number]. 5MG active Not Available Not Available No [...] Updated DateTime 03/15/2023 160.02 cm 38.8 kg/m2 74679.[address] [facility], P 03/15/2023 14:31:45 Date Recorded Body height Provider Name an d Address Organization Details Last Updated DateTime 06/30/2023 160.02 [address] [place] [facility] 06/30/2023 13:30:26 Social History None recorded. Functional Status Question Answer Note LastModified by Organizat ion Details LastModified Time Do you use any illicit or recreational drugs? No [email or web address] Information not available 03/15/2023 What is your level of alcohol consumption? None [email or web address] Information not available 03/15/2023 Mental Status None recorded. Family History Relationship Description Onset Age of this Age Resolved Age Notes LastModified by Organization Details LastModified Time Father Diabetes mellitus [email or web address] Not available 2022 14:32:33 Medical History Condition Response Diabetes Y Gout Y Rheumatoid Arthritis Y Gynecological HistoryNo gynecological history recorded. Obstetrics History GPAL:G 0 P 0 0 0 0 Past Encounters Encounter ID Performer Location Encounter Start Date Encounter Closed Date Diagnosis/Indication Diagnosis SNOMED-CT Code Diagnosis ICD10 Code Diagnosis Note [id number] ELSY HALL [employer] [address] [facility] [address] [place] [address] 03/15/2023 14:16:34 03/15/2023 15:01:50 Pain of left shoulder joint [id number] 9064044 M25.512 Osteoarthr itis of joint of left shoulder region 8239916721 62881 M19.012 Tendinitis of rotator cuff tendon 110242134 M67.819 [id number] ELSY HERNANDEZ [facility] [address] [facility] [address] [place] [address] 06/30/2023 13:15:41 06/30/2023 13:47:43 Tendinitis of left rotator cuff 5557349526 2374940 M67.814 Adhesive c apsulitis of left shoulder 6855982283 96521 M75.02 Health Concerns Section Related Observation LastModified by Organization Detai ls LastModified Time None Recorded Concern Status LastModified by Organization Details LastModified Time None Recorded Advance Directives Directive None Recorded Payers Insurance Date Sequence Insurance Name Policy Number Policy Anton Covered Member ID Anton Member ID Guarantor Name 07/14/2023 2 [place] [facility] Mary Pratt [id number] Mary Pratt 09/09/2023 1 MEDICARE B-[place] [employer] Mary Pratt [id number] Mary Pratt Notes Date Note Type Note [...] A1c was above 9. WILLIS BANERJEE PA-C [address] [place] [address], [phone], [place] [facility], [facility] 03/24/2023 22:50:44 06/30/2023 text/html Assessment & Yas n: Prior note from Soila [id number] female with history of rotator cuff repair [...] to use ibuprofen or Tylenol with appropriate rfzf-bxn-bbhhegf dosing and GI precautions. Icing protocol reviewed. Advised she can continue activity as tolerated and should avoid immobilization of the shoulder to avoid developing a capsular pattern. Questions invited and answered. Patient and her verbalized understanding and agreement with plan.pain of left shoulder joint Order xr shoulder, 2 or more view, 15362inixewiufrfsxv of joint of left shoulder regiontendinitis of [...] She is well controlled. HANNAH LAGUNAS PA-C [address] [place] [address],[place] [address], [place], [address], [place] [facility] 06/30/2023 13:58:23 OBGyn Episode No OBEpisode recorded.
== END 2025-02-22 11:20 | disposition home or self-care (01) ==
LOC: HO.HOS 09:55
PROVIDERS: PCP Internal Medicine; Visit Provider Physician Assistant
DX: M75.42 Impingement syndrome of left shoulder (principal)
CPT/HCPCS: 99024

== ENCOUNTER → 2025-02-22 09:55 | Outpatient (BNVA) | payer MEDICARE, MEDICAID, SELFPAY | PROVIDERS: PCP Internal Medicine; Visit Provider Physician Assistant | DX: Z47.89 Encounter for other orthopedic aftercare (principal); M75.42 Impingement syndrome of left shoulder; Z98.890 Other specified postprocedural states | CPT/HCPCS: 99212 ==

== ENCOUNTER 2025-03-15 12:31 | Outpatient (AMB) | payer MEDICARE, MEDICAID, SELFPAY ==
--- NOTE | 2025-03-15 12:37 | A.OFFVIS_ITS ---
Vital Signs 03/15/25 12:39 Height 5 ft 3 in Weight 189 lb BMI 33.5 Intake Visit Reasons: PO-Lt Shld 02/09/25 DR roscoe MCNEIL Intake Note: Mary is a 69 year old female who presents today for a post operative visit after undergoing a left shoulder arthroscopic distal clavicle excision, acromioplasty, anterior capsular release, left shoulder manipulation under anesthesia, DOS 02/09/[address] Peters. States she is having pain mainly at night time. She has her 1st P.T appt 03/20/25. She continues to take Dilaudid which gives her fairly good relief. She denies any fevers or chills. Allergies oxycodone (From Percocet) Allergy (Intermediate, Verified 03/15/25 12:38) itchy latex Allergy (Unknown, Verified 03/15/25 12:38) Unknown penicillin V Allergy (Unknown, Verified 03/15/25 12:38) unknown pollen extracts Allergy (Unknown, Verified 03/15/25 12:38) Unknown Iodinated Contrast Media (Contrast Dye) Allergy (Verified 03/15/25 12:38) Itching aspirin Adverse Reaction (Intermediate, Verified 03/15/25 12:38) Gastrointestinal Upset Medication List - Last Reconciled 03/15/25 by Silver Peters MD insulin glargine (Lantus Solostar U-100 Insulin) 22 units subcut BEDTIME lisinopril 2.5 mg PO DAILY loratadine (Allergy Relief (loratadine)) 10 mg PO DAILY omeprazole 40 mg PO DAILY pregabalin (Lyrica) 25 mg PO DAILY PRN tirzepatide (Mounjaro) 2.5 mg subcut topiramate XR 25 mg PO DAILY PRN venlafaxine ER 37.5 mg PO DAILY venlafaxine ER 75 mg PO DAILY [facility] Medical History Back pain History of headache Depression Habitual snoring Tachycardia HTN (hypertension) Incomplete right bundle branch block Abnormal EKG Atherosclerosis Adenoma of left adrenal gland Pulmonary nodule History of nephrolithiasis Neuropathy Lumbar spondylosis Lipoma of chest wall Calcifying tendinitis of left shoulder WILL (obstructive sleep apnea) Osteopenia Osteoarthritis Migraine Cervical spinal stenosis Anxiety and depression Diabetes GERD (gastroesophageal reflux disease) Elevated cholesterol Surgical History History of esophagogastroduodenoscopy (EGD) H/O colonoscopy Hx of cataract extraction Hx of cholecystectomy Hx of appendectomy Hx of hysterectomy Hx of shoulder surgery Hx of arthroscopy of right knee Social History Are you a primary certified social workers in health care to a significant other at home: No Do you presently have visiting nurse or other home services: Yes ([employer]) Alcohol intake: never Patient Tobacco Use Status: Never used Tobacco Current occupational status: unemployed Physical Exam Vital Signs: BMI result Body Mass Index 33.5 Extrem Other: Left shoulder examination shows that the surgical incisions are well healed, no erythema, slightly decreased range of motion when compared to her right shoulder, no instability Assessment & Plan Assessment & Plan (1) Left shoulder pain: Code(s): M25.512 - Pain in left shoulder Category: Medical Plan Ms. Saida Pratt continues to do well after undergoing left shoulder arthroscopic surgery on 02/10/2024. She will continue with her physical therapy exercises. I did refill her prescription for Dilaudid. The do's and don'ts of lifting were discussed at length with the patient. She will contact me prior to her follow- up appointment in 2-3 months should any questions or concerns arise. Medications: New hydromorphone (Dilaudid) Partial Fill upon patient request. 2 mg PO Q6H 30 tabs 0RF Coding Level of Care Code Global (21219) Diagnoses Left shoulder pain M25.512
[2025-03-15 12:39] VITALS: BMI 33.5
--- OUTSIDE RECORDS SUMMARY | 2025-03-15 13:19 | XMS_ITS | Clinical Summary ---
Author Organization [facility] Address [address] [place] [address] Care Team Providers Care Senior Loan Processor Name Role Phone Amanda Lemon MD Primary [...] 11/19/2014 Overview: Overview: Occasional CS shots at [facility] with Dr. Covarrubias Osteoarthritis of right [...] age to complete this topic Care Teams Senior Loan Processor Relationship Specialty Start Date End Date Amanda Lemon MD [address] [place] [address] PCP - General Internal Medicine 08/14/22
--- OUTSIDE RECORDS SUMMARY | 2025-03-15 13:19 | XMS_ITS | Clinical Summary ---
Author Organization [facility] Address [address] [place] [phone] Phone Care Team Providers Care Office Asst Name Role Phone Julissa Junior MD Primary Care Provider Encounters Date Type Department Care Team Description 02/07/2025 1:20 PM EDT - 02/07/2025 11:59 PM EDT Hospital [facility]counter [facility] at [address] [phone] Breast calcifications Discharge Disposition: Home or Self Care 01/31/2025 Telephone [facility] Cardiology [address] [place] [phone] Provider, Not In System Medical Records 12/26/2024 12:52 PM EDT - 12/26/2024 11:59 PM EDT Hospital Encounter [facility] at [address] [phone] Encounter for screening mammogram for breast cancer Discharge Disposition: Home or Self Care from Last 3 Months Surgical History Surgery Date Site/Laterality Comments APPENDECTOMY PROCEDURE: HISTORICAL APPENDECTOMY CHOLECYSTECTOMY PROCEDURE: HISTORICAL CHOLECYSTECTOMY KNEE ARTHROSCOPY W/ MENISCAL REPAIR 09/20/2014 Right PROCEDURE: ID ARTHROSCOPY KNEE W/MENISCUS RPR MEDIAL/LATERAL COLONOSCOPY 11/30/2016 PROCEDURE: HISTORICAL COLONOSCOPY; COMMENT: Nine polyps COLONOSCOPY 04/02/2021 PROCEDURE: HISTORICAL COLONOSCOPY; COMMENT: 8 polyps removed Medical History Medical History Date Comments Migraine 10/02/2014 DX:Migraine Osteoarthritis of lumbar spine 11/19/2014 D X:Osteoarthritis of lumbar spine; COMMENT: Occasional CS shots at [facility] with Dr. 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 (CMS/HCC V24, [facility] V28) DX:Controlled type 2 diabet es mellitus [...] PM EST Appointment [facility] at [address] [phone] Health Maintenance Due Date Last [...] complication (CMS/HCC V24, CMS/HCC V28) 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 [facility]amm[facility] location[facility] at [address], [address] -------- FINAL REPORT -------- Dictated By: Damian Calvert Dictated Date: 02/07/2025 14:05 ET Assigned Physician: Damian Calvert Reviewed and Electronically Signed By: Damian Calvert Signed Date: 02/07/2025 14:11 ET Workstation ID: [id number] Transcribed By: Self Edit Transcribed Date: 02/07/2025 [...] months. Mammography location: [facility] at [address], [address] -------- FINAL REPORT -------- Dictated By: Damian Calvert Dictated Date: 02/07/2025 14:05 ET Assigned Physician: Damian Calvert Reviewed and Electronically Signed By: Damian Calvert Signed Date: 02/07/2025 14:11 ET Workstation ID: [id number] Transcribed By: Self Edit Transcribed Date: 02/07/2025 [...] views Mammography location: [facility] at [address], [address] -------- FINAL REPORT -------- Dictated By: Damian Calvert Dictated Date: 12/27/2024 07:13 ET Assigned Physician: Damian Calvert Reviewed and Electronically Signed By: Damian Calvert Signed Date: 12/27/2024 07:23 ET Workstation ID: [id number] Transcribed By: Self Edit Transcribed Date: 12/27/2024 07:13 ET Narrative 12/27/2024 7:23 AM EDT EXAM: SCREENING MAMMOGRAPHY, BILATERAL HISTORY: SCREENING. No additional history. COMPARISON: 10/26/22, 10/23/21, 09/30/20 TECHNIQUE: Synthesized CC and MLO projections of each breast. Tomosynthesis of each breast in the CC and MLO projections. ADDITIONAL IMAGING: None Computer-aided detection was employed with the Screen AI 3-D. TISSUE DENSITY: There are scattered [...] should be classified as having osteoporosis. The [facility] Department of Internal Medicine recommends [...] Cintron should beclassified as having osteoporosis. The [facility] Department of Internal Medicine recommendsusing [...] Insurance [place] - [place] MEDICARE Care Teams Office Asst Relationship Specialty Start Date End Date Julissa Junior MD PCP - General 06/29/23
== END 2025-03-15 12:49 | disposition home or self-care (01) ==
LOC: HO.HOS 12:32
PROVIDERS: Visit Provider Orthopaedic Surgery
DX: M25.512 Pain in left shoulder (principal)
CPT/HCPCS: 99024

== ENCOUNTER → 2025-03-15 12:31 | Outpatient (BNVA) | payer MEDICARE, MEDICAID, SELFPAY | PROVIDERS: Visit Provider Orthopaedic Surgery | DX: Z47.89 Encounter for other orthopedic aftercare (principal); M25.512 Pain in left shoulder; Z98.890 Other specified postprocedural states | CPT/HCPCS: 99212 ==

== ENCOUNTER 2025-05-08 09:50 | Outpatient (RCR) | payer MEDICARE, MEDICAID, SELFPAY ==
--- NOTE | 2025-03-20 16:41 | MHC.PT.EP ---
[facility] [place] Office [place] Office [place] Office [address] Chris Donaldson [address] [phone] F: [phone] F: [phone] F: [phone] F: [phone] Physical Therapy Plan of Care Date of Evaluation: 03/20/25 Date of Surgery: 02/09/25 Diagnosis: L IMPINGEMENT SYNDROME SHLDER, 02/09/25 (DCE, ACROMIOPLASTY., ANT CAPSULAR RELEASE, ?DARELL) Assessment: Pt IS 69 YO F REFERRED TO PT FROM [facility] ([facility]) S/P L SHLDER ARTHROSCOPIC SURGERY ON 02/09/25 (REPORTS HAD PREVIOUS SURGERY ON SAME SIDE 3 YRS PRIOR WITH CONTINUED LIMIT IN ROM AFTER PT). Pt PRESENTS WITH LIMITED L SHLDER ROM AND STRENGTH. SHE REPORTS PLEASED WITH THE INCREASE IN ROM AND THE DECREASE IN PAIN AFTER SURGERY. SHOULD BENEFIT FROM PT TO HELP IMPROVE ROM AND STRENGTH OVERALL Frequency and Duration: The patient will be seen 2X/WK X 6 WKS Short Term Goals: 1. INCREASED AWARENESS SHLDER CARE AND POSTURE 2. IMPROVED SLEEP ON L SIDE 3. I HEP WITH DC EX PLAN Fpc Goals: 1. DECREASED L SHLDER PAIN AT LEAST 50% WITH ADLS 2. INCREASED L SHLDER ROM 10-20DEGREES T/O 3. INCREASED L SHLDER STRENGTH AT LEAST 1/2 MM GRADE T/O Treatment Plan: Modalities to reduce pain, spasms and effusion. Manual therapy to restore motion and function. Therapeutic exercise to improve strength and flexibility. Neuromuscular re-education for posture and balance. Therapeutic activities to return to functional activities of daily living. Electronically signed by: MILDRED WHITAKER PT Please sign and return to therapist. Thank you for your referral.
--- NOTE | 2025-05-15 16:33 | MHC.PT.DC ---
[facility] [place] Office [place] Office [place] Office [address] Chris Donaldson [address] [phone] F: [phone] F: [phone] F: [phone] F: [phone] Physical Therapy Discharge Report Diagnosis: L IMPINGEMENT SYNDROME SHLDER, 02/09/25 (DCE, ACROMIOPLASTY., ANT CAPSULAR RELEASE, ?DARELL) Date of Surgery: 02/09/25 Date of Evaluation: 03/20/25 Date of Discharge: 05/15/25 Treatments to Date: 10 Cancellations to Date: No Shows to Date: Discharge Status: Improved Function Independent with HEP Patient Elected to Stop Discharge Summary: Pt CANCELLED PT SESSION TODAY (05/15/25). PER TESTER VIBRATOR EQUIPMENT NOTE, SELF DC, GOING BACK TO DOCTOR ). PER ORTHO APPT FROM TODAY Left shoulder examination shows that the surgical incisions are well healed, no erythema, slightly decreased range of motion when compared to her right shoulder, 5/5 strength with supraspinatus testing, no instability. Mary continues to do well after undergoing left shoulder arthroscopic surgery on 02/09/2025. She will continue with her home stretching program. The do's and don'ts of lifting were discussed at length with the patient. I did refill her prescription for diclofenac. She will contact me prior to her follow-up appointment in 3 months should any questions or concerns arise. Feel free to call me at any time should questions regarding her orthopedic management arise. PER LAST PT SESSION ASSESSMENT GOOD PERF THEREX WITH MINIMAL CUES. NO SIGNIFICANT C/O PAIN. HAS 2 APPTS LEFT. REV GOALS Electronically signed by: MILDRED WHITAKER PT Please sign and return to therapist. Thank you for your referral.
== END 2025-05-15 16:34 | disposition home or self-care (01) ==
LOC: HO.PT 09:50
PROVIDERS: Visit Provider Physician Assistant
DX: M75.42 Impingement syndrome of left shoulder (principal)
CPT/HCPCS: 97110; 97140; 97161; 97535

== ENCOUNTER 2025-05-15 08:40 | Outpatient (AMB) | payer MEDICARE, MEDICAID, SELFPAY ==
--- NOTE | 2025-05-15 08:57 | A.OFFVIS_ITS ---
Vital Signs 05/15/25 09:02 Height 5 ft 3 in Weight 178 lb BMI 31.5 Intake Visit Reasons: OV- Follow up Lt Shld 02/09/25 Intake Note: Mary is a 70 year old female who presents with complaints of mild to moderate discomfort in her left shoulder after undergoing left shoulder arthroscopic surgery on 02/09/2025. The patient is due to complete formal physical therapy today. She continues with her home stretching program. She does take diclofenac which gives her fairly good relief. She denies any fevers or chills. Product Blending Supervisor Required: Yes Product Blending Supervisor Services: Product Blending Supervisor Offered & Declined Product Blending Supervisor Name: . Allergies oxycodone (From Percocet) Allergy (Intermediate, Verified 05/15/25 09:03) itchy latex Allergy (Unknown, Verified 05/15/25 09:03) Unknown penicillin V Allergy (Unknown, Verified 05/15/25 09:03) unknown pollen extracts Allergy (Unknown, Verified 05/15/25 09:03) Unknown Iodinated Contrast Media (Contrast Dye) Allergy (Verified 05/15/25 09:03) Itching aspirin Adverse Reaction (Intermediate, Verified 05/15/25 09:03) Gastrointestinal Upset Medication List - Last Reconciled 05/15/25 by Silver Peters MD hydromorphone (Dilaudid) 2 mg PO Q6H insulin glargine (Lantus Solostar U-100 Insulin) 22 units subcut BEDTIME lisinopril 2.5 mg PO DAILY loratadine (Allergy Relief (loratadine)) 10 mg PO DAILY omeprazole 40 mg PO DAILY pregabalin (Lyrica) 25 mg PO DAILY PRN tirzepatide (Mounjaro) 2.5 mg subcut topiramate XR 25 mg PO DAILY PRN venlafaxine ER 37.5 mg PO DAILY venlafaxine ER 75 mg PO DAILY PFSH Medical History Back pain History of headache Depression Habitual snoring Tachycardia HTN (hypertension) Incomplete right bundle branch block Abnormal EKG Atherosclerosis Adenoma of left adrenal gland Pulmonary nodule History of nephrolithiasis Neuropathy Lumbar spondylosis Lipoma of chest wall Calcifying tendinitis of left shoulder WILL (obstructive sleep apnea) Osteopenia Osteoarthritis Migraine Cervical spinal stenosis Anxiety and depression Diabetes GERD (gastroesophageal reflux disease) Elevated cholesterol Surgical History History of esophagogastroduodenoscopy (EGD) H/O colonoscopy Hx of cataract extraction Hx of cholecystectomy Hx of appendectomy Hx of hysterectomy Hx of shoulder surgery Hx of arthroscopy of right knee Social History Are you a primary inpatient care manager rn to a significant other at home: No Do you presently have visiting nurse or other home services: 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) Alcohol intake: never Patient Tobacco Use Status: Never used Tobacco Current occupational status: unemployed Physical Exam Vital Signs: BMI result Body Mass Index 31.5 Const Other: Well-nourished well-developed very friendly female awake alert and oriented x3 in no acute distress Extrem Other: Left shoulder examination shows that the surgical incisions are well healed, no erythema, slightly decreased range of motion when compared to her right shoulder, 5/5 strength with supraspinatus testing, no instability Assessment & Plan Assessment & Plan (1) Left shoulder pain: Code(s): M25.512 - Pain in left shoulder Category: Medical Plan Mary continues to do well after undergoing left shoulder arthroscopic surgery on 02/09/2025. She will continue with her home stretching program. The do's and don'ts of lifting were discussed at length with the patient. I did refill her prescription for diclofenac. She will contact me prior to her follow-up appointment in 3 months should any questions or concerns arise. Feel free to call me at any time should questions regarding her orthopedic management arise. I spent 20 minutes in reviewing the patient's records and imaging studies, seeing the patient and documenting in the medical record. Medications: New diclofenac sodium 75 mg PO Q12H PRN 60 tabs 3RF pain Coding Level of Care Code Est Pt Level 3 (56632) Complex EM visit Add On G2211 Diagnoses Left shoulder pain M25.512
[2025-05-15 09:02] VITALS: BMI 31.5
--- OUTSIDE RECORDS SUMMARY | 2025-05-15 09:07 | XMS_ITS | Clinical Summary ---
Author Organization [facility] Address [address] [place] [address] Phone Care Team Providers Care Assistant Restaurant General Manager Name Role Phone Julissa Junior MD Primary Care Provider Surgical History Surgery Date Site/Laterality Comments APPENDECTOMY PROCEDURE: HISTORICAL APPENDECTOMY CHOLECYSTECTOMY PROCEDURE: HISTORICAL CHOLECYSTECTOMY KNEE ARTHROSCOPY W/ MENISCAL REPAIR 09/20/2014 Right PROCEDURE: UT ARTHROSCOPY KNEE W/MENISCUS RPR MEDIAL/LATERAL COLONOSCOPY 11/30/2016 PROCEDURE: HISTORICAL COLONOSCOPY; COMMENT: Nine polyps COLONOSCOPY 04/02/2021 PROCEDURE: HISTORICAL COLONOSCOPY; COMMENT: 8 polyps removed Medical History Medical History Date Comments Migraine 10/02/2014 DX:Migraine Osteoarthritis of lumbar spine 11/19/2014 D X:Osteoarthritis of lumbar spine; COMMENT: Occasional CS shots at [facility] with Dr. Covarrubias GERD (gastroesophageal reflu [...] PM EST [facility]ointment [facility] [address] [phone] Health Maintenance Due Date Last Done Comments Colorectal Cancer Screening: Colonoscopy 1953 Diabetes: Annual GFR (Glomerular Filtration Rate) 1953 Diabetes: Annual Foot Exam 1963 Diabetes: Annual Retina Eye Exam 1963 RSV Immunization Adult Patients (1 - Risk 50-74 years 1-dose series) 2003 Cholesterol Screening (Lipid Panel) 07/09/2022 Diabetes: Annual Urine Albumin-Creatinine Ratio (uACR) 07/09/2022 Diabetes: Blood Sugar Control Test (HGBA1C) 07/09/2022 Falls Risk Assessment 07/09/2022 Hepatitis C Screening 07/09/2022 Hypertension/CHF/CAD Annual BMP Blood Test 07/09/2022 Medicare Annual Wellness Visit 07/09/2022 Social Influencers of Health Screening 07/09/2022 Zoster Vaccines (3 of 3) 10/29/2023 024, 07/09/2014, 09/18/2011 Depression Screening 08/02/2024 Influenza Vaccine (#1) 2025 , 05/13/2023, 05/04/2022, Additional history exists COVID-19 Vaccine [...] Routine 02/07/2025 2:25 PM EDT Breast calcifications DXA BONE DENSITY STUDY 1+ SITS AXIAL SKEL Routine 05/28/2021 1:18 PM EDT History of falling Polyneuropathy, unspecified Type 2 diabetes mellitus with other diabetic kidney complication ([facility] V24, [facility] V28) Proteinuria, unspecified 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 [facility]amm[facility] at [address], [address] -------- FINAL REPORT -------- Dictated By: Damian Calvert Dictated Date: 02/07/2025 14:05 ET Assigned Physician: Damian Calvert Reviewed and Electronically Signed By: Damian Calvert Signed Date: 02/07/2025 14:11 ET Workstation ID: [id number] Transcribed By: Self Edit Transcribed Date: 02/07/2025 [...] months. Mammography location: [facility] at [address], [address] -------- FINAL REPORT -------- Dictated By: aDmian Calvert Dictated Date: 02/07/2025 14:05 ET Assigned Physician: Damian Calvert Reviewed and Electronically Signed By: Damian Calvert Signed Date: 02/07/2025 14:11 ET Workstation ID: [id number] Transcribed By: Self Edit Transcribed Date: 02/07/2025 14:05 ET us Amanda Sanchez MD IMG BI PROCEDURES [...] be classified as having osteoporosis. The [facility] Department of Internal Medicine recommends [...] should beclassified as having osteoporosis. The [facility] Department of Internal Medicine recommendsusing [...] or over-estimation of fracture risk by FRAX. us Julissa Junior MD IMG DXA PROCEDURES Final Res ult from Last 3 Months or Most Recently Relevant to Health Maintenance Insurance [place] - [place]ARE Care Teams Assistant Restaurant General Manager Relationship Specialty Start Date End Date Julissa Junior MD PCP - General 06/29/23
--- OUTSIDE RECORDS SUMMARY | 2025-05-15 09:07 | XMS_ITS | Clinical Summary ---
Author Organization [facility] Address [address] [place] [address] Care Team Providers Care Program Services Planner Name Role Phone Amanda Lemon MD Primary [...] 09/25/2021 Active tamsulosin (FLOMAX) 0.4 MG CAPS GNE 1 CAPSULA POR LA BOCA CADA QI [...] 11/19/2014 Overview: Overview: Occasional CS shots at [facility] with Dr. Covarrubias Osteoarthritis of right [...] age to complete this topic Care Teams Program Services Planner Relationship Specialty Start Date End Date Amanda Lemon MD [address] [place] [address] PCP - General Internal Medicine 08/14/22
== END 2025-05-15 09:16 | disposition home or self-care (01) ==
LOC: HO.HOS 08:41
PROVIDERS: Visit Provider Orthopaedic Surgery
DX: M25.512 Pain in left shoulder (principal)
CPT/HCPCS: 99213; G2211

== ENCOUNTER → 2025-05-15 08:40 | Outpatient (BNVA) | payer MEDICARE, MEDICAID, SELFPAY | PROVIDERS: Visit Provider Orthopaedic Surgery | DX: M25.512 Pain in left shoulder (principal); Z98.890 Other specified postprocedural states | CPT/HCPCS: 99212 ==

== ENCOUNTER 2025-07-18 14:41 | Outpatient (AMB) | payer MEDICARE, MEDICAID, SELFPAY ==
--- OUTSIDE RECORDS SUMMARY | 2025-07-18 19:36 | XMS_ITS | Clinical Summary ---
Author Organization [facility] Address [address] [place] [address] Phone Care Team Providers Care Seasonal Greenery Bundler Name Role Phone Julissa Junior MD Primary Care Provider Surgical History Surgery Date Site/Laterality Comments APPENDECTOMY PROCEDURE: HISTORICAL APPENDECTOMY CHOLECYSTECTOMY PROCEDURE: HISTORICAL CHOLECYSTECTOMY KNEE ARTHROSCOPY W/ MENISCAL REPAIR 09/20/2014 Right PROCEDURE: [place] ARTHROSCOPY KNEE W/MENISCUS RPR MEDIAL/LATERAL COLONOSCOPY 11/30/2016 PROCEDURE: HISTORICAL COLONOSCOPY; COMMENT: Nine polyps COLONOSCOPY 04/02/2021 PROCEDURE: HISTORICAL COLONOSCOPY; COMMENT: 8 polyps removed Medical History Medical History Date Comments Migraine 10/02/2014 DX:Migraine Osteoarthritis of lumbar spine 11/19/2014 D X:Osteoarthritis of lumbar spine; COMMENT: Occasional CS shots at [facility] with Dr. Covarrubias GERD (gastroesophageal reflu [...] PM EST [facility]ointment [facility] at [address] [phone] Health Maintenance Due Date Last [...] 10/29/2023 024, 07/09/2014, 09/18/2011 Depression Screening 08/02/2024 COVID-19 Vaccine ( season) 2025 10/27/2024, 02/01/2023, 05/28/2021, Additional history exists Influenza Vaccine (#1) 2025 , 05/13/2023, 05/04/2022, Additional history exists DTaP,Tdap,and Td Vaccines (3 [...] diabetes mellitus with other diabetic kidney complication ([facility] V24, CMS/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 Mammography location: [facility] [address], [address] -------- FINAL REPORT -------- Dictated By: Damian Calvert Dictated Date: 02/07/2025 14:05 ET Assigned Physician: Damian Calvert Reviewed and Electronically Signed By: Damian Calvert Signed Date: 02/07/2025 14:11 ET Workstation ID: [id number] Transcribed By: Self Edit Transcribed Date: 02/07/2025 [...] months. Mammography location: [facility] [address], [address] -------- FINAL REPORT -------- Dictated By: Damian Calvert Dictated Date: 02/07/2025 14:05 ET Assigned Physician: Damian Calvert Reviewed and Electronically Signed By: Damian Calvert Signed Date: 02/07/2025 14:11 ET Workstation ID: [id number] Transcribed By: Self Edit Transcribed Date: 02/07/2025 [...] should be classified as having osteoporosis. The [facility] Department of Internal Medicine recommends [...] Cintron should beclassified as having osteoporosis. The [facility] Department of Internal Medicine recommendsusing [...] over-estimation of fracture risk by FRAX. us uJlissa Junior MD IMG DXA PROCEDURES Final Res ult from Last 3 Months or Most Recently Relevant to Health Maintenance Insurance [place] Care Teams Seasonal Greenery Bundler Relationship Specialty Start Date End Date Julissa Junior MD PCP - General 06/29/23
--- OUTSIDE RECORDS SUMMARY | 2025-07-18 19:36 | XMS_ITS | Data Portability ---
Author Organization [place] [facility] Anastasiia Barahona [place]ONE [place] Address [address] [place] [address] Care Team Providers Care Accounts Payable Manager Name Role Phone AFSANEH MORENO Referring Provider [...] to use ibuprofen or Tylenol with appropriate przh-vdx-kvcpguc dosing and GI precautions. Icing protocol reviewed. [...] more view 2022 [email or web address] 2 [facility], [address], [place], [address], 15:01:50 Medication Orders Kenalog 40 mg/mL suspension for injection 2022 023 [id number], [address] [place] [address], [id number], 14:33:11 lidocaine (PF) 100 mg/5 mL (2 %) injection syringe 2022 023 [id number], [address] [place] [address], [address], 14:33:11 bupivacaine HCl 0.5 % (5 mg/mL) injection solution 2022 023 [id number], [address] [place] [address], [address], 14:33:11 Patient TargetsNo targets recorded. Patient Instructions Encounter Date Encounter Id Patient Instructions Last Modified By Organization Details Last Modified Time 03/15/2023 [id number] 3 views of the left shoulder were obtained on 03/15/2023 in the [place] office. The views are limited by body [...] Hill MD Not available 03/24/2023 22:49:54 06/30/2023 [id number] You have been provided with a cortisone [...] hours following the injection. This is called izzy arthur . To help minimize the chances of this, please see the post-injection instructions above. There is a less than 1% chance of an infection. If you notice any signs of infection (redness, warmth, drainage, fever greater than 100 degrees) please call our office or contact us through the portal [facility]. Not available 06/30/2023 13:56:01 Reason for Referral None Reported. Problems Name Problem SNOMED Code Status Onset Date Resolution Date Notes Provider Name and Address Organization Details Recorded Time Obstructi ve sleep apnea syndrome 17310896 Active 2014 WILL (obstruct karl sleep apnea) - Overview: Formattin g of this note might be different from the original. Overview: Not using CPAP machine Not Available [facility] 23:46:05 Migraine 05590655 Active 2014 Migraine Not Available [facility] 23:46:06 Osteoarth ritis of right knee joint 96310421409 9100 Active 2014 Osteoarth ritis of right knee - Overview: Formattin g of this note might be different from the original. Overview: arthrosco py 09/16, CS injection s with Dr. Covarrubias Not Available [facility] 23:46:06 Lumbar spondylos is 735705206 Active 2014 Osteoarth ritis of lumbar spine - Overview: Formattin g of this note might be different from the original. Overview: Occasiona l CS shots at [facility] with Dr. Covarrubias Not Available [facility] 23:46:07 Vitamin D deficienc y 92601233 Active 2016 Vitamin D deficienc y Not Available [facility] 23:46:05 Osteopeni a 401294399 Active 2016 Osteopeni a - Overview: Formattin g of this note might be different from the original. Overview: Bone Density 06/2018 Not Available [facility] 23:46:05 Gastroeso phageal reflux disease 060196652 Active 2016 GERD (gastroes ophageal reflux disease) Not Available [facility] 23:46:06 Cervical nerve root pain 753436810 Active 2017 Cervical radicular pain - Overview: Formattin g of this note might be different from the original. Overview: CS injection s with [facility] Not Available [facility] 23:46:05 Calcific tendiniti s of left shoulder 48078591311 9108 Active 2017 Calcific tendiniti s of left shoulder - Overview: Formattin g of this note might be different from the original. Overview: Follows with physiatry Not Available [facility] 23:46:05 Body mass index 30+ - obesity 076342700 Active 2017 Obesity (BMI 30-39.9) Not Available [facility] 23:46:04 Spinal stenosis in cervical region 69925121 Active 2017 Cervical stenosis of spinal canal - Overview: Formattin g of this note might be different from the original. Overview: S/p MRI 09/2017 Not Available [facility] 5 23:46:06 Triggerin g of digit 352910241 Active 2017 Trigger finger, left middle finger Not Available [facility] 5 23:46:07 Mixed anxiety and depressiv e disorder 283116862 Active 2018 Anxiety and depressio n Not Available [facility] 5 23:46:06 Well controlle d type 2 diabetes mellitus 735168095 Active 2018 Controlle d type 2 diabetes mellitus with neurologi deysi manifesta tions - Overview: Formattin g of this note might be different from the original. Overview: Paresthes ias of hands and feet Not Available [facility] 5 23:46:07 Diabetes mellitus 29823794 Active 2022 Gabino Hill MD [address], [place], [address] , [place] [facility], [facility] 3 14:47:41 Osteoarth ritis of joint of left shoulder region 30345924833 9108 Active 2022 Gabino Hill MD [address], [place], [address] , [place] [facility], [facility] 3 14:47:43 Tendiniti s of left rotator cuff 52497342472 461951 Active 2022 HANNAH LAGUNAS PA-C [address], [place], [address] , [place] [facility], [facility] 3 13:53:42 Adhesive capsuliti s of left shoulder 41083437765 9107 Active 2022 HANNAH LAGUNAS PA-C [address], [place], [address] , [place] [facility], [facility] 3 13:53:55 Problem Notes None recorded. Procedures Surgical History Date Name Laterality Status Provider Name and Address Organization Details Recorded Time 3 Shoulder Joint/Bursa Asp & Inj completed HANNAH LAGUNAS PA-C [address], [place], [address], [place] [facility] 06/30/2023 13:53:24 Shoulder Surgery completed Yue Landaverde [place] [facility] 03/15/2023 14:32:49 Imaging Results None recorded. Procedure Notes None recorded. Medical Equipment None Reported. Allergies Allergen ID Allergen Name Allergen Category Reaction Reaction Severity Criticality Documentation Date Start Date Code Code System Note Provider Name and Address Organization Details Recorded Time 33910 acetamino phen / oxycodone medicatio n Not available Not available Not available 06/30/2023 [address] [facility], [place] [facility] 3 13:29:42 7147 Product containin g penicilli n (product) medicatio n Not available Not available Not available 03/15/2023 [address] [facility], [facility] 3 14:31:22 7148 aspirin medicatio n Not available Not available Not available 03/15/[address] [facility], [facility], [facility] 3 14:31:31 7149 latex environme nt,medica tion Not available Not available Not available 03/15/2023 [address] [facility], [facility], [facility] 3 14:31:36 48246 adhesive tape environme nt,medica tion Not available Not available Not available 04/24/20252017 Not Available [facility] 5 01:28:29 72848 aluminum aspirin Not available Not available Not available Not available 04/24/20252017 611 RxNorm Not Available [facility] 5 01:28:29 90574 acetamino phen / oxycodone medicatio n Not available Not available Not available 04/24/2025202118 3 RxNorm React ion: Itchi ng, sever ity: Unkno wn Not Available [facility] 5 01:28:30 Medications Name Sig Start Date Stop Date Status Note LastModified by Organization Details LastModified Time celecoxib 200 mg capsule TAKE 1 CAPSULE BY MOUTH 2 TIMES DAILY NEEDED FOR PAIN. active Not Available Not Available No t Available venlafaxine ER 37.5 mg capsule,ext ended release 24 hr TAKE 1 CAPSULE BY MOUTH ONCE A DAY WITH 75MG CAPSULE FOR TOTAL GRAJ=753. 5MG active Not Available Not Available No t Available venlafaxine ER 75 mg capsule,ext ended release 24 hr TAKE 1 CAPSULE BY MOUTH ONCE A DAY WITH 37.5 MG CAPSULE FOR TOTAL DOSE = 112.5 MG active Not Available Not Available No t Available atorvastati n 10 mg tablet 2019 active Not Available Not Available Not Avai lable hydrocodone 5 mg-acetamin ophen 325 mg tablet TAKE 1 TABLET BY MOUTH EVERY 6 HOURS NEEDED FOR PAIN active Not Available Not Available No t Available meloxicam 15 mg tablet Take 15 mg by mouth daily. 2021 active Not Available Not Available Not Avai lable promethazin e 12.5 mg tablet Take 1 tablet (12.5 mg total) by mouth every 8 (eight) hours as needed for nausea. Do not take until after surgery 2018 active Not Available Not Available Not Avai lable bupivacaine HCl 0.5 % (5 mg/mL) injection [...] Not Available Not Available No t Available methocarbam ol 750 mg tablet TAKE 1 TAB BY MOUTH 4 TIMES DAILY. 2017 active Not Available Not Available Not Avai lable calcium 500 mg (as calcium carbonate 1,250 mg) tablet TAKE 1 TABLET BY MOUTH EVERY DAY active Not Available Not Available No t Available tamsulosin 0.4 mg capsule GEN 1 CAPSULA POR LA BOCA CADA QI POR 14 GODOY 2021 active Not Available Not Available Not Avai lable benzonatate 100 mg capsule TAKE 1 CAPSULE BY MOUTH 3 TIMES DAILY NEEDED FOR COUGH FOR UP TO 7 DAYS. NOT COVERED active Not Available Not Available No t Available venlafaxine 37.5 mg tablet PLEASE SEE ATTACHED FOR DETAILED DIRECTION S active Not Available Not Available No t Available methylpredn isolone acetate 40 mg/mL suspension for injection 05/30 completed Not Available Not Available Not Available triamcinolo ne acetonide 10 mg/mL suspension for injection 06/05 completed Not Available Not Available Not Available methylpredn isolone 4 mg tablets in [...] Not Available Not Available No t Available metformin ER 500 mg tablet,exte nded release 24 hr Take 500 mg by mouth 2 (two) times a day with meals. 2017 active Not Available Not Available Not Avai lable lisinopril 2.5 mg tablet TAKE 1 TABLET BY MOUTH EVERY DAY active Not Available Not Available No t Available loratadine 10 mg tablet TAKE 1 TABLET BY MOUTH EVERY DAY active Not Available Not Available No t Available oxycodone 5 mg tablet Take 1 tablet (5 mg total) by mouth every 6 (six) hours as needed for pain. Do not take until after surgery 2018 active Not Available Not Available Not Avai lable Vitamin D3 25 mcg (1,000 unit) tablet TAKE 1 TABLET BY MOUTH EVERY DAY active Not Available Not Available No t Available insulin aspart (U-100) 100 unit/mL (3 mL) subcutaneou s pen Inject into the skin 3 times daily before meals, 3 units >150-200, 5 units >200-250, if greater than 250 call provider 2018 active Not Available Not Available Not Avai lable Lyrica 25 mg capsule TAKE 1 CAPSULE BY MOUTH EVERY DAY active Not Available Not Available No t Available lidocaine (PF) 10 mg/mL (1 %) injection solution 06/05 completed Not Available Not Available Not Available lidocaine (PF) 20 mg/mL (2 %) injection solution 01/11 completed Not Available Not Available Not Available Lantus Solostar U-100 Insulin 100 unit/mL (3 mL) subcutaneou s pen INJECT 22 UNITS SUBCUTANE OUS INJECTION DAILY AT BEDTIME active Not Available Not Available No t Available lidocaine (PF) 100 mg/5 mL (2 %) injection syringe Take 2 mL by injection route. 2022 active Not Available Not Available Not Avai lable hyaluronate sodium, stabilized 60 mg/3 mL intra-artic ular syringe 01/14 completed Not Available Not Available Not Available Ozempic 0.25 mg or 0.5 mg (2 mg/1.5 mL) subcutaneou s pen injector INJECT 0.25 MG WEEKLY FOR THE FIRST MONTH. THEN INCREASE TO 0.5 MG WEEKLY. active Not Available Not Available No t Available omeprazole 20 mg delayed release,dis integrating tablet Take 1 tablet by mouth. active Not Available Not Available No t [...] Updated DateTime 03/15/2023 160.02 cm 38.8 kg/m2 92185.73 g Yue Landaverde [place] - [facility] 03/15/2023 14:31:45 Date Recorded Body height Provider Name an d Address Organization Details Last Updated DateTime 06/30/2023 160.02 cm Shelby Jeannie [place] - [facility] 06/30/2023 13:30:26 Social History None recorded. Functional Status Question Answer Note LastModified by Organizat ion Details LastModified Time Do you use any illicit or recreational drugs? No [email or web address] Information not available 03/15/2023 What is your level of alcohol consumption? None [email or web address] Information not available 03/15/2023 Mental Status None recorded. Family History Relationship Description Onset Age of this Age Resolved Age Notes LastModified by Organization Details LastModified Time Father Diabetes mellitus [email or web address] Not available 2022 14:32:33 Medical History Condition Response Gout Y Diabetes Y Rheumatoid Arthritis Y Gynecological HistoryNo gynecological history recorded. Obstetrics History GPAL:G 0 P 0 0 0 0 Past Encounters Encounter ID Performer Location Encounter Start Date Encounter Closed Date Diagnosis/Indication Diagnosis SNOMED-CT Code Diagnosis ICD10 Code Diagnosis IMO Codes Diagnosis Note [id number] ELSY HALL [facility] [address] [place] [address] 03/15/2023 14:16:34 03/15/2023 15:01:50 Pain of left shoulder joint 5620062758 9475187 M25.512 Osteoarthr itis of joint of left shoulder region 3258504373 27249 M19.012 Tendinitis of rotator cuff tendon 975213745 M67.819 [id number] ELSY HERNANDEZ [facility] [address] [place] [address] 06/30/2023 13:15:41 06/30/2023 13:47:43 Tendinitis of left rotator cuff 0329377076 1597465 M67.814 Adhesive c apsulitis of left shoulder 6270266227 09443 M75.02 Health Concerns Section Related Observation LastModified by Organization Detai ls LastModified Time None Recorded Concern Status LastModified by Organization Details LastModified Time None Recorded Advance Directives Directive None Recorded Payers Insurance Date Sequence Insurance Name Policy Number Policy Anton Covered Member ID Anton Member ID Guarantor Name 07/14/2023 2 [place] [facility] Mary Pratt [id number] Mary Pratt 09/09/2023 1 [place] [employer] Mary Pratt [id number] Mary Pratt Notes Date Note Type Note Provider Name and Address Organization Details Recorded Time 03/15/2023 text/html ROS as noted in the HPI 08/24/2018: Left shoulder arthroscopy, rotator cuff repair, [...] A1c was above 9. WILLIS BANERJEE PA-C [address] [place] [address], [place], [address], [place] [facility] 03/24/2023 22:50:44 06/30/2023 text/html Assessment & Plan: Prior note from Soila DAY-T54-wjvg-hjt female with history of rotator cuff repair [...] to use ibuprofen or Tylenol with appropriate ankp-xvc-smlhgeu dosing and GI precautions. Icing protocol reviewed. Advised she can continue activity as tolerated and should avoid immobilization of the shoulder to avoid developing a capsular pattern. Questions invited and answered. Patient and her verbalized understanding and agreement with plan.pain of left shoulder joint Order xr shoulder, 2 or more view, [id number] of joint of left shoulder regiontendinitis of [...] She is well controlled. HANNAH LAGUNAS PA-C [address] [place] [address], [place], [address], [place] [facility] 06/30/2023 13:58:23 OBGyn Episode No OBEpisode recorded.
--- OUTSIDE RECORDS SUMMARY | 2025-07-18 19:36 | XMS_ITS | Clinical Summary ---
Author Organization [facility] Prior to 12/30/[address] [place] [address] Care Team Providers Care Salvage Grinder Name Role Phone Amanda Lemon MD Primary [...] and depression 08/29/2018 Controlled type 2 diabetes m ellitus with neurological manifestations 08/29/2018 Overview: Overview: Paresthesias [...] 11/19/2014 Overview: Overview: Occasional CS shots at [facility] with Dr. Covarrubias Osteoarthritis of right [...] age to complete this topic Care Teams Salvage Grinder Relationship Specialty Start Date End Date Amanda Lemon MD [address] [place] [address] PCP - General Internal Medicine 08/14/22
--- NOTE | 2025-08-01 09:55 | MHC.OFFVIS ---
Intake Visit Reasons: INJ-Right knee Durolane Injection Intake Note: Mary is a 69 year old female who presents with complaints of progressively worsening right knee pain. She is here today for a right knee Durolane injection. She has failed the last 3 months of conservative treatment. She wishes to hold off on surgery if at all possible. Allergies oxycodone (From Percocet) Allergy (Intermediate, Verified 08/01/25 09:55) itchy latex Allergy (Unknown, Verified 08/01/25 09:55) Unknown penicillin V Allergy (Unknown, Verified 08/01/25 09:55) unknown pollen extracts Allergy (Unknown, Verified 08/01/25 09:55) Unknown Iodinated Contrast Media (Contrast Dye) Allergy (Verified 08/01/25 09:55) Itching aspirin Adverse Reaction (Intermediate, Verified 08/01/25 09:55) Gastrointestinal Upset Medication List - Last Reconciled 08/01/25 by Silver Peters MD diclofenac sodium 75 mg PO Q12H PRN hydromorphone (Dilaudid) 2 mg PO Q6H insulin glargine (Lantus Solostar U-100 Insulin) 22 units subcut BEDTIME lisinopril 2.5 mg PO DAILY loratadine (Allergy Relief (loratadine)) 10 mg PO DAILY omeprazole 40 mg PO DAILY pregabalin (Lyrica) 25 mg PO DAILY PRN tirzepatide (Mounjaro) 2.5 mg subcut topiramate XR 25 mg PO DAILY PRN venlafaxine ER 37.5 mg PO DAILY venlafaxine ER 75 mg PO DAILY PFSH Medical History Back pain History of headache Depression Habitual snoring Tachycardia HTN (hypertension) Incomplete right bundle branch block Abnormal EKG Atherosclerosis Adenoma of left adrenal gland Pulmonary nodule History of nephrolithiasis Neuropathy Lumbar spondylosis Lipoma of chest wall Calcifying tendinitis of left shoulder WILL (obstructive sleep apnea) Osteopenia Osteoarthritis Migraine Cervical spinal stenosis Anxiety and depression Diabetes GERD (gastroesophageal reflux disease) Elevated cholesterol Surgical History History of esophagogastroduodenoscopy (EGD) H/O colonoscopy Hx of cataract extraction Hx of cholecystectomy Hx of appendectomy Hx of hysterectomy Hx of shoulder surgery Hx of arthroscopy of right knee Social History Are you a primary customer care agent to a significant other at home: No Do you presently have visiting nurse or other home services: Yes ([employer]) Alcohol intake: never Patient Tobacco Use Status: Never used Tobacco Current occupational status: unemployed Physical Exam Extrem Other: Right knee examination shows a minimal effusion, palpable crepitus with range of motion, pain with range of motion, no instability Results Reviewed Results Reviewed: X-rays of the patient's right knee show joint space narrowing, subchondral sclerosis, no acute bony abnormalities Assessment & Plan Assessment & Plan (1) Osteoarthritis of right knee: Code(s): M17.11 - Unilateral primary osteoarthritis, right knee Category: Medical Plan Mary presents with right knee pain due to osteoarthritis. The risks and benefits of a right knee Durolane injection were discussed at length with the patient. The patient wished to proceed. She tolerated the injection well. She will continue with her home exercise program. She will contact me prior to her follow-up appointment in 3 months should any questions or concerns arise. I spent 22 minutes in reviewing the patient's records and imaging studies, seeing the patient and documenting in the medical record. Coding Level of Care Code Est Pt Level 3 (93567) Add On Problem Visit Only Diagnoses Osteoarthritis of right knee M17.11
== END 2025-07-18 15:23 | disposition home or self-care (01) ==
LOC: HO.HOS 14:41
PROVIDERS: Visit Provider Orthopaedic Surgery
DX: M17.11 Unilateral primary osteoarthritis, right knee (principal)
CPT/HCPCS: 20610; 99213

== ENCOUNTER → 2025-07-18 14:41 | Outpatient (BNVA) | payer MEDICARE, MEDICAID, SELFPAY | PROVIDERS: Visit Provider Orthopaedic Surgery | DX: M17.11 Unilateral primary osteoarthritis, right knee (principal) | CPT/HCPCS: 20610; 99212 ==